=== PATIENT | female | born 1935 | race Caucasian/White ===

== ENCOUNTER → 2016-03-22 | Outpatient (CLI) | payer OTHER ==
[~2016-03-22] MED LIST: AMIO200T4 PO; CHOL100010 PO; DABI150C PO; MULTTAB58 PO; POTA20TA16 PO; SIMV-150 PO; SULF800T23 PO; TPRSR/50 PO
[2016-03-22 12:50] LABS: CALCIUM 9.4 mg/dl (8.5-10.1)
[2016-03-22 23:14] LABS: CALCIUM URINE 13.6 mg/dl
== END | disposition home or self-care (01) ==
LOC: C.LABBFT 08:38
PROVIDERS: ATTEND Internal Medicine Rheumatology
DX: M81.0 Age-related osteoporosis without current pathological fracture (principal); E55.9 Vitamin D deficiency, unspecified; E61.8 Deficiency of other specified nutrient elements

== ENCOUNTER → 2016-06-26 | Outpatient (CLI) | payer OTHER ==
[2016-06-26 12:33] LABS: CALCIUM 9.2 mg/dl (8.5-10.1)
[2016-06-26 12:38] LABS: BASO % 0.5 %; BASO ABS # 0.03 K/uL (0-0.2); COMPLETE YES; EOS % 1.6 %; HEMATOCRIT 34.6 % (37-47); IG% 0.2 %; LYMPH % 27.3 %; LYMPH ABS # 1.67 K/uL (1.2-3.4); MEAN CORPUSCULAR HEMOGLOBIN 26.3 pg (25-34); MEAN CORPUSCULAR HGB CONC 30.9 g/dl (32-36); MEAN PLATELET VOLUME 11.4 fL (7.4-10.4); MONO % 9.3 %; NEUT % 61.1 %; PLATELET COUNT 272 K/uL (130-400); RED BLOOD COUNT 4.07 M/uL (4.2-5.4); WHITE BLOOD COUNT 6.11 K/uL (4.8-10.8)
[2016-06-26 12:44] LABS: ALT/SGPT 29 U/L (12-78); BLOOD UREA NITROGEN 20 mg/dl (7-18); BUN/CREATININE RATIO 15.5 (10-20); CARBON DIOXIDE 27 mmol/L (21-32); CHLORIDE 105 mmol/L (98-107); CHOLESTEROL 188 mg/dl (0-200); GLUCOSE 90 mg/dl (70-99); POTASSIUM 4.1 mmol/L (3.5-5.1); SODIUM 142 mmol/L (136-145); TRIGLYCERIDES 67 mg/dl (0-150); VERY LOW DENSITY LIPOPROT CALC 13 mg/dl
[2016-06-26 12:55] LABS: AST/SGOT 28 U/L (15-37); CHOLESTEROL/HDL RATIO 1.8; FERRITIN 11.6 ng/ml (8.0-388.0); HDL CHOLESTEROL 106 mg/dl; LDL CHOLESTEROL CALCULATED 69 mg/dl; PHOSPHORUS 3.9 mg/dl (2.5-4.9); TOTAL IRON BINDING CAPACITY 385 mcg/dl (250-450)
--- NOTE | 2016-07-18 09:43 | CODING QUERY MEDICAL NECESSITY ---
CQSUPPORTING DIAGNOSIS NEEDED A supporting diagnosis is required for the test/procedure performed on this patient in order for us to be reimbursed by the patient's insurance. Please provide a supporting diagnosis for the following test/procedure listed below next to the test name along with your signature. *If there is no additional diagnosis for this patient that would support the following test/procedure please document that below next to the test/procedure. Test(s)/Procedure(s) that require a supporting diagnosis: DOS 06/26/16 VITAMIN D [id number] Provider Signature: Date: Thank you Carla Fishman Health Information Management Once completed, please kindly fax back to [phone] For questions please call [phone]
== END | disposition home or self-care (01) ==
LOC: C.LABBFT 07:48
PROVIDERS: ATTEND Internal Medicine
DX: I12.9 Hypertensive chronic kidney disease with stage 1 through stage 4 chronic kidney disease, or unspecified chronic kidney disease (principal); N18.3 Chronic kidney disease, stage 3 (moderate); I48.0 Paroxysmal atrial fibrillation; E55.9 Vitamin D deficiency, unspecified; E78.5 Hyperlipidemia, unspecified; D64.9 Anemia, unspecified

== ENCOUNTER → 2016-07-26 | Outpatient (CLI) | payer OTHER ==
[2016-07-26 17:33] LABS: BASO % 0.4 %; BASO ABS # 0.03 K/uL (0-0.2); COMPLETE YES; EOS % 1.3 %; HEMATOCRIT 35.1 % (37-47); IG% 0.3 %; LYMPH % 26.2 %; LYMPH ABS # 1.88 K/uL (1.2-3.4); MEAN CELL VOLUME 83.2 fL (80-100); MEAN CORPUSCULAR HEMOGLOBIN 25.4 pg (25-34); MEAN CORPUSCULAR HGB CONC 30.5 g/dl (32-36); MEAN PLATELET VOLUME 11.8 fL (7.4-10.4); MONO % 8.2 %; NEUT % 63.6 %; PLATELET COUNT 266 K/uL (130-400); RED BLOOD COUNT 4.22 M/uL (4.2-5.4); WHITE BLOOD COUNT 7.17 K/uL (4.8-10.8)
[2016-07-26 18:06] LABS: ALT/SGPT 32 U/L (12-78); AST/SGOT 32 U/L (15-37); BLOOD UREA NITROGEN 23 mg/dl (7-18); BUN/CREATININE RATIO 15.4 (10-20); CALCIUM 8.9 mg/dl (8.5-10.1); CARBON DIOXIDE 27 mmol/L (21-32); CHLORIDE 108 mmol/L (98-107); GLUCOSE 79 mg/dl (70-99); POTASSIUM 4.1 mmol/L (3.5-5.1); SODIUM 142 mmol/L (136-145)
[2016-07-26 18:08] LABS: ALB/GLOB RATIO 1.2 (0.9-2); ALKALINE PHOSPHATASE 74 U/L (45-117)
[2016-07-26 19:21] LABS: LYME DISEASE AB IGG NEG (NEG); LYME DISEASE AB IGM NEG (NEG)
[2016-08-01 00:35] LABS: AMIODARONE 1.2 mcg/mL (1.5-2.5); DESMETHYLAMIODARONE 1.1 mcg/mL (1.5-2.5)
== END | disposition home or self-care (01) ==
LOC: C.LABBFT 11:35
PROVIDERS: ATTEND Physician Assistant Medical
DX: R41.0 Disorientation, unspecified (principal)

== ENCOUNTER → 2016-07-27 | Outpatient (CLI) | payer OTHER ==
--- NOTE | 2016-07-27 15:13 | DIAGNOSTIC IMAGING REPORT ---
HEAD CT NONCONTRAST CT DOSE: 638.56 mGycm HISTORY: R41.3 Memory lossR41.0 [id number] Hallucinations TECHNIQUE: Multiaxial CT images of the head were performed without the use of intravenous contrast. Automated exposure control was utilized for this study. Comparison: Head CT 12/22/2013. Findings: The paranasal sinuses and mastoid air cells are clear. The calvarium and skull base are intact. There is no mass, hematoma, midline shift, acute infarct. White matter hypodensity is nonspecific but suggestive of microvascular ischemic change. The ventricles and sulci demonstrate mild age-related involutional changes. Impression: No acute intracranial abnormality. Atrophy and microvascular ischemic changes. Electronically signed by: Enrique Huang M.D. 07/27/2016 3:12 PM Dictated Date/Time: 07/27/2016 3:05 PM
== END | disposition home or self-care (01) ==
LOC: C.CTS 14:39
PROVIDERS: ATTEND Physician Assistant Medical
DX: R41.0 Disorientation, unspecified (principal); R44.3 Hallucinations, unspecified; R41.3 Other amnesia

== ENCOUNTER → 2016-08-07 | Outpatient (CLI) | payer OTHER ==
--- NOTE | 2016-08-07 10:22 | DIAGNOSTIC IMAGING REPORT ---
MRI OF THE BRAIN WITHOUT CONTRAST CLINICAL HISTORY: Memory loss. Confusion. History of breast cancer. COMPARISON STUDY: MRI of the brain September 01, [address] July 27, 2016. TECHNIQUE: Utilizing a 1.5 Norma magnet and dedicated coil, multiplanar, multiecho imaging of the brain was performed without IV contrast. FINDINGS: There are no areas of restricted diffusion. No acute intracranial hemorrhage, midline shift or mass effect is present. Moderate atrophy is noted with sulcal enlargement and ventricular dilatation. The basilar cisterns are patent. There are no extra-axial collections. No intracranial masses identified on this unenhanced exam. Scattered white matter T2 hyperintense foci suggest mild small vessel disease with minimal progression since exam of September 01, 2007. There are no calvarial lesions. Orbits and sinuses are unremarkable. IMPRESSION: 1. No acute intracranial findings. 2. Moderate atrophy and mild small vessel disease. Electronically signed by: Hans Mancini M.D. 08/07/2016 10:21 AM Dictated Date/Time: 08/07/2016 10:18 AM
== END | disposition home or self-care (01) ==
LOC: C.MRI 08:42
PROVIDERS: ATTEND Psychiatry & Neurology Neurology
DX: R41.0 Disorientation, unspecified (principal); R41.3 Other amnesia

== ENCOUNTER → 2016-08-22 | Outpatient (CLI) | payer OTHER | END | disposition home or self-care (01) | LOC: C.LAB1850 10:31 | PROVIDERS: ATTEND Internal Medicine Pulmonary Disease | DX: I48.0 Paroxysmal atrial fibrillation (principal) ==

== ENCOUNTER → 2016-10-16 | Outpatient (CLI) | payer OTHER ==
[2016-10-16 12:51] LABS: BASO % 0.3 %; BASO ABS # 0.02 K/uL (0-0.2); COMPLETE YES; HEMATOCRIT 43.3 % (37-47); IG% 0.3 %; LYMPH % 26.1 %; LYMPH ABS # 2.08 K/uL (1.2-3.4); MEAN CELL VOLUME 89.6 fL (80-100); MEAN CORPUSCULAR HEMOGLOBIN 28.4 pg (25-34); MEAN CORPUSCULAR HGB CONC 31.6 g/dl (32-36); MEAN PLATELET VOLUME 11.7 fL (7.4-10.4); MONO % 9.5 %; NEUT % 62.8 %; PLATELET COUNT 227 K/uL (130-400); RED BLOOD COUNT 4.83 M/uL (4.2-5.4); WHITE BLOOD COUNT 7.98 K/uL (4.8-10.8)
[2016-10-16 12:54] LABS: URINE APPEARANCE CLEAR (CLEAR); URINE BILIRUBIN NEG (NEG); URINE COLOR YELLOW; URINE EPITHELIAL CELL AUTO 20-30 /lpf (0-5); URINE NITRITE NEG (NEG); URINE SPECIFIC GRAVITY 1.022 (1.000-1.030); UROBILINOGEN NEG (NEG); ZZUR CULT IF INDIC CLEAN CATCH NO
[2016-10-16 13:04] LABS: MANUAL MICROSCOPIC REQUIRED? NO; REVIEW REQ? NO
[2016-10-16 13:19] LABS: URINE PROTIEN/CREAT RATIO 0.2 (0-0.2); URINE TOTAL PROTEIN 24.1 mg/dl (0-11.9)
[2016-10-16 13:27] LABS: BLOOD UREA NITROGEN 19 mg/dl (7-18); BUN/CREATININE RATIO 17.6 (10-20); CALCIUM 9.2 mg/dl (8.5-10.1); CARBON DIOXIDE 27 mmol/L (21-32); CHLORIDE 106 mmol/L (98-107); GLUCOSE 89 mg/dl (70-99); MAGNESIUM 2.2 mg/dl (1.8-2.4); POTASSIUM 3.9 mmol/L (3.5-5.1); SODIUM 140 mmol/L (136-145)
[2016-10-16 13:32] LABS: FERRITIN 59.4 ng/ml (8.0-388.0); PHOSPHORUS 3.7 mg/dl (2.5-4.9); TOTAL IRON BINDING CAPACITY 311 mcg/dl (250-450)
== END | disposition home or self-care (01) ==
LOC: C.LAB1850 11:33
PROVIDERS: ATTEND Internal Medicine Nephrology
DX: N18.3 Chronic kidney disease, stage 3 (moderate) (principal); D64.9 Anemia, unspecified

== ENCOUNTER → 2017-01-29 | Outpatient (CLI) | payer OTHER ==
[2017-01-29 14:40] LABS: BASO % 0.4 %; BASO ABS # 0.03 K/uL (0-0.2); COMPLETE YES; EOS % 0.5 %; HEMATOCRIT 38.2 % (37-47); IG% 0.3 %; LYMPH % 20.3 %; LYMPH ABS # 1.55 K/uL (1.2-3.4); MEAN CELL VOLUME 94.6 fL (80-100); MEAN CORPUSCULAR HEMOGLOBIN 30.2 pg (25-34); MEAN CORPUSCULAR HGB CONC 31.9 g/dl (32-36); MEAN PLATELET VOLUME 11.6 fL (7.4-10.4); MONO % 6.8 %; NEUT % 71.7 %; PLATELET COUNT 239 K/uL (130-400); RED BLOOD COUNT 4.04 M/uL (4.2-5.4); WHITE BLOOD COUNT 7.64 K/uL (4.8-10.8)
[2017-01-29 15:08] LABS: BLOOD UREA NITROGEN 23 mg/dl (7-18); BUN/CREATININE RATIO 16.6 (10-20); CALCIUM 8.9 mg/dl (8.5-10.1); CARBON DIOXIDE 26 mmol/L (21-32); CHLORIDE 107 mmol/L (98-107); GLUCOSE 164 mg/dl (70-99); MAGNESIUM 2.3 mg/dl (1.8-2.4); POTASSIUM 3.6 mmol/L (3.5-5.1); SODIUM 142 mmol/L (136-145)
[2017-01-29 15:09] LABS: PHOSPHORUS 3.9 mg/dl (2.5-4.9)
== END | disposition home or self-care (01) ==
LOC: C.LAB1850 13:00
PROVIDERS: ATTEND Internal Medicine Nephrology
DX: N18.3 Chronic kidney disease, stage 3 (moderate) (principal)

== ENCOUNTER → 2017-02-05 | Outpatient (CLI) | payer OTHER ==
[2017-02-05 17:58] LABS: THYROID STIMULATING HORMONE 1.13 uIu/ml (0.300-4.500)
== END | disposition home or self-care (01) ==
LOC: C.LABBFT 14:13
PROVIDERS: ATTEND Internal Medicine Cardiovascular Disease
DX: D64.9 Anemia, unspecified (principal); I10 Essential (primary) hypertension; I34.0 Nonrheumatic mitral (valve) insufficiency; I48.0 Paroxysmal atrial fibrillation

== ENCOUNTER → 2017-07-23 | Outpatient (CLI) | payer OTHER ==
[~2017-07-23] MED LIST changes: +POTA-639 PO; -POTA20TA16 PO
[2017-07-23 12:21] LABS: BASO % 0.4 %; BASO ABS # 0.03 K/uL (0-0.2); EOS % 1.2 %; EOS ABS # 0.08 K/uL (0-0.5); HEMATOCRIT 38.2 % (37-47); HEMOGLOBIN 12.7 g/dL (12.0-16.0); LYMPH % 30.7 %; LYMPH ABS # 2.13 K/uL (1.2-3.4); MEAN CELL VOLUME 90.7 fL (80-100); MEAN CORPUSCULAR HEMOGLOBIN 30.2 pg (25-34); MEAN CORPUSCULAR HGB CONC 33.2 g/dl (32-36); MEAN PLATELET VOLUME 11.2 fL (7.4-10.4); MONO % 10.5 %; MONO ABS # 0.73 K/uL (0.11-0.59); NEUT % 57.2 %; NEUT ABS # 3.96 K/uL (1.4-6.5); PLATELET COUNT 226 K/uL (130-400); RED CELL DISTRIBUTION WIDTH CV 14.8 % (11.5-14.5); RED CELL DISTRIBUTION WIDTH SD 49.2 fL (36.4-46.3); WHITE BLOOD COUNT 6.93 K/uL (4.8-10.8)
[2017-07-23 12:49] LABS: ALBUMIN 3.4 gm/dl (3.4-5.0); ALT/SGPT 23 U/L (12-78); AST/SGOT 25 U/L (15-37); BLOOD UREA NITROGEN 23 mg/dl (7-18); CALCIUM 8.4 mg/dl (8.5-10.1); CARBON DIOXIDE 27 mmol/L (21-32); CHOLESTEROL 187 mg/dl (0-200); CREATININE 1.18 mg/dl (0.60-1.20); GLUCOSE 81 mg/dl (70-99); LDL CHOLESTEROL CALCULATED 75 mg/dl; PHOSPHORUS 3.7 mg/dl (2.5-4.9); POTASSIUM 4.3 mmol/L (3.5-5.1); SODIUM 140 mmol/L (136-145)
== END | disposition home or self-care (01) ==
LOC: C.LABBFT 10:51
PROVIDERS: ATTEND Physician Assistant Medical
DX: I34.0 Nonrheumatic mitral (valve) insufficiency (principal); I48.0 Paroxysmal atrial fibrillation; N18.3 Chronic kidney disease, stage 3 (moderate); E78.5 Hyperlipidemia, unspecified

== ENCOUNTER 2018-04-09 01:01 | Observation (INO) ==
[2018-04-09 01:36] LABS: Appearance Urine Clear (Clear); Bilirubin Urine Negative (Negative); Color Urine Yellow; Glucose Urine UA Negative (Negative); Ketones Urine Negative (Negative); Leukocyte Esterase Urine Negative (Negative); Nitrite Urine Negative (Negative); Protein Urine Negative (Negative); Specific Gravity Urine 1.006 (1.000-1.030); Urobilinogen Urine Negative (Negative); pH Urine 7.5 (4.5-7.5)
[2018-04-09 02:12] LABS: Basophils # (auto) 0.02 K/uL (0-0.2); Basophils % (auto) 0.2 %; Eosinophils # (auto) 0.18 K/uL (0-0.5); Eosinophils % (auto) 2.2 %; Hematocrit (blood only) 39.1 % (37-47); Hemoglobin 12.9 g/dL (12.0-16.0); Immature Granulocytes # (auto) 0.01 K/uL (0.00-0.02); Immature Granulocytes % (auto) 0.1 %; Lymphocytes # (auto) 2.01 K/uL (1.2-3.4); Lymphocytes % (auto) 24.5 %; Mean Corpuscular Volume 92.9 fL (80-100); Mean Platelet Volume 10.9 fL (7.4-10.4); Monocytes # (auto) 0.78 K/uL (0.11-0.59); Monocytes % (auto) 9.5 %; Neutrophils # (auto) 5.19 K/uL (1.4-6.5); Neutrophils % (auto) 63.5 %; Platelet Count 211 K/uL (130-400); RDW Coefficient of Variation 14.6 % (11.5-14.5); RDW Standard Deviation 49.9 fL (36.4-46.3); Red Blood Count 4.21 M/uL (4.2-5.4); White Blood Count 8.19 K/uL (4.8-10.8)
[2018-04-09 02:30] LABS: INR 1.4 (0.9-1.1); Partial Thromboplastin Ratio 1.8; Prothrombin Time 14.1 Seconds (9.0-12.0)
[2018-04-09 02:32] LABS: Partial Thromboplastin Time 45.5 Seconds (21.0-31.0)
[2018-04-09 02:41] LABS: Alanine Aminotransferase 35 U/L (12-78); Albumin Level 3.8 gm/dl (3.4-5.0); Aspartate Aminotransferase 30 U/L (15-37); BUN Creatinine Ratio 15.4 (10-20); Bilirubin Direct 0.2 mg/dl (0-0.2); Blood Urea Nitrogen 20 mg/dl (7-18); Calcium 8.6 mg/dl (8.5-10.1); Carbon Dioxide 27 mmol/L (21-32); Chloride 110 mmol/L (98-107); Est GFR (African American) 43.9; Est GFR (Non-African American) 37.9; Glucose 87 mg/dl (70-99); Potassium 3.7 mmol/L (3.5-5.1); Sodium 143 mmol/L (136-145)
[2018-04-09 02:44] LABS: Alkaline Phosphatase 60 U/L (45-117); Bilirubin,Total 0.5 mg/dl (0.2-1); Creatine Kinase 106 U/L (26-192); Total Protein 7.2 gm/dl (6.4-8.2); Troponin I < 0.015 ng/ml (0-0.045)
--- NOTE | 2018-04-09 04:00 | History & Physical Report ---
Date of Service April 09, 2018 Assessment & Plan (1) Generalized weakness: Generalized weakness/ataxia/imbalance/recent fall/medication side effect of Aricept-- Upon discussion with patient and daughter, her symptoms have begun since she has been getting a reminder call from her daughter's to remember to take all of her medications. The main medication that she takes late in the evening is Aricept, and she reports that within 1-3 hours of taking that over the past week, the above symptoms develop. Her daughter reports that the patient has only been taking the Aricept sporadically prior to that. I recommended that we stop the Aricept, which the patient and daughter feel has not had a significant improvement anyway, and monitor for resolution of the symptoms. Consult PT and OT, to see if patient would benefit from outpatient versus inpatient therapy. Present on Admission?: Yes (2) Medication side effect: See above Present on Admission?: Yes (3) Ataxia: See above Present on Admission?: Yes (4) Atrial fibrillation: Atrial fibrillation/hypertension-- Continue amiodarone, and Pradaxa. Present on Admission?: Yes (5) Hypertension: See above Present on Admission?: Yes (6) Hyperlipidemia: Continue simvastatin 10 mg daily. Present on Admission?: Yes (7) Fracture of nasal bone: Occurred during her first fall. Present on Admission?: Yes History of Present Illness Chief Complaint: The patient presents to the emergency department with complaint of recurrent fatigue and imbalance that occurs primarily at nighttime near bedtime. Primary Care Provider: Narayan Francis MD The patient is an 82-year-old female who was initially seen on April 03, 2018 in the ED for generalized weakness and difficulty with balance causing a fall episode where she sustained a nasal fracture. She then was seen at the emergency department on April 07 for similar symptoms, but did not sustain any injuries. Patient presents for the third time to the emergency department tonight with her daughter, with complaint of severe generalized weakness, with feeling like she could not move, imbalance, and disorientation. With discussion with the patient and her daughter in the ED tonight, it appears that she has been being reminded by a phone call to take her Aricept at nighttime, which she now takes on a regular basis, and likely is having side effects as noted above. Allergies Allergy/AdvReac Type Severity Reaction Status Date / Time Penicillins Allergy Unknown Rash Verified 04/09/18 01:16 risedronate sodium AdvReac Mild Nausea Unverified 04/09/18 01:16 Home Medications Home Medications Medication Instructions Recorded Confirmed Type amiodarone 200 mg PO PM 04/03/18 04/09/18 History calcitriol 0.25 mg PO PM 04/03/18 04/09/18 History calcium carbonate [Calci-Chew] 500 mg PO QAM 04/03/18 04/09/18 History cholecalciferol (vitamin D3) 1,000 unit PO PM 04/03/18 04/09/18 History [Vitamin D3] dabigatran etexilate [Pradaxa] 150 mg PO BID 04/03/18 04/09/18 History donepezil 10 mg PO PM 04/03/18 04/09/18 History ferrous sulfate [iron] 325 mg PO QAM 04/03/18 04/09/18 History simvastatin 10 mg PO PM 04/03/18 04/09/18 History sulfamethoxazole-trimethoprim 1 tab PO QAM 04/03/18 04/09/18 History thiamine HCl (vitamin B1) [Vitamin 0 mg PO QAM 04/03/18 04/09/18 History B-1] vit C-vit Z-chkefo-hxmf-lutein 1 tab PO QAM 04/03/18 04/09/18 History [PreserVision Lutein] Past Med/Surg History Social History Feels Safe at Home: Yes Smoking Status: Never smoker Preferred Language: Samoan Review of Systems The patient denies chest pain, palpitations, shortness of breath, dyspnea on exertion, cough, lower extremity swelling, sore throat, fevers, chills, sweats, weight change, nausea, vomiting, diarrhea , constipation, abdominal pain, pelvic pain, blood in urine or stool, dysuria, urinary frequency or urgency, headache, memory loss, loss of consciousness, rash, abnormal bruising or bleeding, focal weakness, numbness or tingling in arms or legs, generalized arthralgias or myalgias, back or neck pain, or night sweats. The review of systems is otherwise negative other than for that already noted above, and at least 10 systems have been reviewed. Physical Exam 2 Vital Signs (Past 24 Hours): Last Vital Signs Temp 36.4 C L 02/06/19 01:06 Pulse 56 L 04/09/18 03:00 Resp 18 04/09/18 03:00 BP 162/67 H 04/09/18 03:00 Pulse Ox 92 04/09/18 03:00 Physical Exam: The patient is awake, alert and oriented 3, well developed and well nourished, light bruises over her forehead, lying in bed and in no acute distress. HEENT--PERRL, EOMI, mucous membranes and oropharynx normal. Neck--supple. No JVD. No bruits. Thyroid normal, trachea midline, no adenopathy. Heart--normal S1 and S2. No murmurs, rubs or gallops. Lungs--clear bilaterally, no respiratory distress, no accessory muscle use. Abdomen--normal bowel sounds and soft. Nontender. Nondistended. Extremities--no cyanosis or clubbing. No edema. There are good distal pulses b/ l. Dermatologic--normal skin turgor, normal color, no abnormal lymph nodes, no rash. Neurologic--cranial nerves II through XII grossly intact. Rheumatologic--normal range of motion. Psychiatric--normal affect. Results & Data Laboratory Results Laboratory Results WBC 8.19 K/uL (4.8-10.8) 04/09/18 01:48 RBC 4.21 M/uL (4.2-5.4) 04/09/18 01:48 Hgb 12.9 g/dL (12.0-16.0) 04/09/18 01:48 Hct 39.1 % (37-47) 04/09/18 01:48 MCV 92.9 fL (80-100) 04/09/18 01:48 MCH 30.6 pg (25-34) 04/09/18 01:48 MCHC 33.0 g/dL (32-36) 04/09/18 01:48 RDW Std Deviation 49.9 fL (36.4-46.3) H 04/09/18 01:48 RDW Coeff of Griselda 14.6 % (11.5-14.5) H 04/09/18 01:48 Plt Count 211 K/uL (130-400) 04/09/18 01:48 MPV 10.9 fL (7.4-10.4) H 04/09/18 01:48 Immature Gran % (Auto) 0.1 % 04/09/18 01:48 Neut % (Auto) 63.5 % 04/09/18 01:48 Lymph % (Auto) 24.5 % 04/09/18 01:48 [place] % (Auto) 9.5 % 04/09/18 01:48 Eos % (Auto) 2.2 % 04/09/18 01:48 Baso % (Auto) 0.2 % 04/09/18 01:48 Immature Gran # (Auto) 0.01 K/uL (0.00-0.02) 04/09/18 01:48 Neut # (Auto) 5.19 K/uL (1.4-6.5) 04/09/18 01:48 Lymph # (Auto) 2.01 K/uL (1.2-3.4) 04/09/18 01:48 [place] # (Auto) 0.78 K/uL (0.11-0.59) H 04/09/18 01:48 Eos # (Auto) 0.18 K/uL (0-0.5) 04/09/18 01:48 Baso # (Auto) 0.02 K/uL (0-0.2) 04/09/18 01:48 PT 14.1 Seconds (9.0-12.0) H 04/09/18 01:48 INR 1.4 (0.9-1.1) H 04/09/18 01:48 APTT 45.5 Seconds (21.0-31.0) H* 04/09/18 01:48 PTT Ratio 1.8 04/09/18 01:48 Sodium 143 mmol/L (136-145) 04/09/18 01:48 Potassium 3.7 mmol/L (3.5-5.1) 04/09/18 01:48 Chloride 110 mmol/L (98-107) H 04/09/18 01:48 Carbon Dioxide 27 mmol/L (21-32) 04/09/18 01:48 Anion Gap 6.0 (3-11) 04/09/18 01:48 BUN 20 mg/dl (7-18) H 04/09/18 01:48 Creatinine 1.30 mg/dl (0.6-1.2) H 04/09/18 01:48 Est Cr Clr Drug Dosing Not Reportable 04/09/18 01:48 Est GFR ( Amer) 43.9 04/09/18 01:48 Est GFR (Non-Af Amer) 37.9 04/09/18 01:48 BUN/Creatinine Ratio 15.4 (10-20) 04/09/18 01:48 Glucose 87 mg/dl (70-99) 04/09/18 01:48 Calcium 8.6 mg/dl (8.5-10.1) 04/09/18 01:48 Magnesium 2.0 mg/dl (1.8-2.4) 04/09/18 01:48 Total Bilirubin 0.5 mg/dl (0.2-1) 04/09/18 01:48 Direct Bilirubin 0.2 mg/dl (0-0.2) 04/09/18 01:48 AST 30 U/L (15-37) 04/09/18 01:48 ALT 35 U/L (12-78) 04/09/18 01:48 Alkaline Phosphatase 60 U/L (45-117) 04/09/18 01:48 Total Creatine Kinase 106 U/L (26-192) 04/09/18 01:48 Troponin I < 0.015 ng/ml (0-0.045) 04/09/18 01:48 Total Protein 7.2 gm/dl (6.4-8.2) 04/09/18 01:48 Albumin 3.8 gm/dl (3.4-5.0) 04/09/18 01:48 Lipase 150 U/L (73-393) 04/09/18 01:48 Urine Color Yellow 04/09/18 01:20 Urine Appearance Clear (Clear) 04/09/18 01:20 Urine pH 7.5 (4.5-7.5) 04/09/18 01:20 Ur Specific [place] 1.006 (1.000-1.030) 04/09/18 01:20 Urine Protein Negative (Negative) 04/09/18 01:20 Urine Glucose (UA) Negative (Negative) 04/09/18 01:20 Urine Ketones Negative (Negative) 04/09/18 01:20 Urine Blood Negative (Negative) 04/09/18 01:20 Urine Nitrite Negative (Negative) 04/09/18 01:20 Urine Bilirubin Negative (Negative) 04/09/18 01:20 Urine Urobilinogen Negative (Negative) 04/09/18 01:20 Ur Leukocyte Esterase Negative (Negative) 04/09/18 01:20 Code Status & VTE Plan Code Status Full code VTE Prophylaxis Plan VTE Prophylaxis will be ordered: Yes _ (1) Fracture of nasal bone Encounter type: initial encounter Fracture healing: Fracture type: closed Qualified Code(s): S02.2XXA - Fracture of nasal bones, initial encounter for closed fracture
[2018-04-09] MEDS ORDERED: ALUMINUM/MAGNESIUM SUSP 30 ML UDC PO PRN (05:52)
[2018-04-09] MEDS ORDERED: MAGNESIUM HYDROXIDE SUSP 30 ML UDC PO PRN (05:52)
[2018-04-09] MEDS ORDERED: ACETAMINOPHEN 325 MG TAB PO PRN (05:52)
[2018-04-09] MEDS ORDERED: PATIENT'S HEIGHT AND/OR WEIGHT NEEDED SCH (06:15)
--- NOTE | 2018-04-09 06:28 | XRay Report ---
XR chest 1V portable HISTORY: 82 years-old Female worsening weakness acute weakness COMPARISON: Chest radiograph 08/02/2015 TECHNIQUE: Portable AP view of the chest FINDINGS: Cardiac silhouette is enlarged, unchanged. Calcification of the thoracic aortic arch. Chronic interst itial coarsening with hyperinflation. No pneumothorax, pleural effusion or overt pulmonary edema. Dem ineralized appearance of the bones with degenerative changes of the shoulders and spine. Surgical cli ps project about the left axilla. IMPRESSION: Cardiomegaly without acute process. The above report was generated using voice recognition software. It may contain grammatical, syntax o r spelling errors. Electronically signed by: Chandrakant Carbajal M.D. 04/09/2018 6:26 AM
--- NOTE | 2018-04-09 06:46 | CT Scan Report ---
CT OF THE HEAD WITHOUT CONTRAST CLINICAL HISTORY: worsening weakness, on Pradaxa, recent head injury COMPARISON STUDY: MRI of the brain August 07, [address] April 03, 2018. CT DOSE: 537.48 mGy.cm TECHNIQUE: Helical axial images of the head were obtained without IV contrast. Automated exposure con trol was utilized for the study. A dose lowering technique was utilized adhering to the principles o f ALARA. FINDINGS: No acute intracranial hemorrhage, midline shift or mass effect is present. Ventricular syst em is stable. Basilar cisterns are patent. There are no extra-axial collections. There are no finding s to suggest acute dural sinus thrombosis or acute territorial infarct. The appearance of the brain i s unchanged. There is no calvarial fracture. IMPRESSION: No acute intracranial findings. Electronically signed by: Hans Mancini M.D. 04/09/2018 6:44 AM
--- NOTE | 2018-04-09 08:15 | Hospitalist Progress Note ---
Date of Service April 09, 2018 Assessment & Plan (1) Generalized weakness: Generalized weakness/ataxia/imbalance/recent fall/medication side effect of Aricept-- she reports that within 1-3 hours of taking that over the past week, she felt she had noticible mental status and gait performance delcine Stopping Aricept, family is concerned of possible issue prior to aricept, will proceed to mri of brain to eval of metastatic disease with history of breast cancer and or cva( with history of afib) Consult PT and OT (2) Medication side effect: See above (3) Ataxia: See above (4) Atrial fibrillation: Atrial fibrillation/hypertension-- Continue amiodarone, and Pradaxa. (5) Hypertension: See above (6) Hyperlipidemia: Continue simvastatin 10 mg daily. (7) Fracture of nasal bone: Occurred during her first fall. Subjective Patient is pleasant today she is mildly forgetful she can recall falling and fracturing her nose she has no focal complaints or problems during my visit Review of Systems ROS: well nourished well developed. No double vision blurry vision No problems with speech or swallowing No palpitations, chest pain or pressure No Wheezing or breathing issues No abdominal pain nausea vomiting diarrhea changes in appetite or weight No burning urine urine frequency or changes in color No focal joint pain or muscle pain No skin rashes or oral lesions No unusual bruising or bleeding No focused back pain or numbness or loss of strength Patient progressive changes in memory but no confusion today Physical Exam 2 Vital Signs (Past 24 Hours): Last Vital Signs Temp 36.7 C 04/09/18 08:00 Pulse 62 04/09/18 08:00 Resp 18 04/09/18 08:00 BP 162/66 H 04/09/18 08:00 Pulse Ox 97 04/09/18 08:00 Constitutional: well developed and average body habitus Eyes: no conjunctival abnormality and no scleral abnormality Neck: normal visual inspection and trachea midline Respiratory: normal respiratory effort; no respiratory distress Auscultation: lungs clear to auscultation bilaterally Cardiovascular: RRR, no murmur, no edema Gastrointestinal (Abdomen): normal bowel sounds, soft, nontender, no hepatosplenomegaly Musculoskeletal: no cyanosis or clubbing, extremities motor strength 5/5 _ (1) Fracture of nasal bone Encounter type: initial encounter Fracture healing: Fracture type: closed Qualified Code(s): S02.2XXA - Fracture of nasal bones, initial encounter for closed fracture
--- NOTE | 2018-04-09 08:23 | Emergency Department Note ---
Entered by Luciana Mcpherson acting as a scribe for Danial Amaya MD ED Provider Note Name: Maru Jeter Age: 82 Arrives Via: Family Vehicle Informant: Self CC: Worsening weakness HPI: A female arrives for evaluation after complaining of worsening weakness that began early this morning. The patient states that she was in the ER for a fall about a week ago due to weakness, and the symptoms have been present since she was discharged. The patient complains of shakiness in her upper extremities , difficulty moving her upper extremities, feeling "unsteady," intermittent burping, and notes that she "can't hold her head up." She denies any dysuria, abdominal pain, neck pain, headache, SOB, chest pain, and hip pain. The patient' s daughter, at bedside, states that the patient was on Bactrim about 2 weeks ago for a suspected UTI. She notes that she's on Pradaxa for a history of A fib. She denies any history of strokes and myocardial infarctions. ROS: See above HPI for pertinent positives & negatives. A total of 10 systems reviewed and were otherwise negative. Past Medical History: Atrial fibrillation, hypertension Past Surgical History: Tubal ligation Family History: Family history is noncontributory. Social History: Never smoker Home Medications: Pradaxa Allergies: Penicillins, risedronate sodium Physical: Vitals: BP: 190/70, P: 56, R: 16, T: 97.5, O2: Sat, D: Room Air Exam: GENERAL: Patient is elderly and tired appearing and in minimal distress. She has weakness with sitting up. EYES: No scleral icterus, unremarkable pupils. ENT: Mucous membranes moist, no nasal congestion. Resolving bruising in the bilateral face. NECK: No masses appreciated, no meningismus, trachea is midline. RESPIRATORY: No dyspnea. Clear to auscultation and equal bilaterally. No wheeze , no rhonchi. CARDIOVASCULAR: Regular rate and rhythm. No murmurs, rubs, gallops appreciated. GASTROINTESTINAL: Abdomen soft, non-tender, no peritonitis. Bowel sounds positive. No masses appreciated. BACK: No midline tenderness, no CVA tenderness EXTREMITIES: Normal motion all extremities, no cyanosis, no edema. NEUROLOGIC: Alert and oriented, no acute motor or sensory deficits, no focal weakness, cranial nerves grossly intact. SKIN: No rash, no jaundice, no diaphoresis. ED Course: Prior Medical Record, Triage/Nursing Notes, Medications, Allergies reviewed by Me Vital Signs: reviewed and remarkable for hypertension and bradycardia. Labs: Reviewed and unremarkable as below Interventions: [place] Imaging: X ray results are stated below per my interpretation: Chest: 1 view: No infiltrate, no effusion, normal cardiac border. CT head negative per statrad EKG: See below. Consults: 0255: I spoke with Dr. Perdue, [facility] hospitalist, about the patient's case. He will further evaluate her. Times: 0113: Past medical records reviewed. The patient was evaluated in room B06, and a complete history and physical examination were performed. 0252: I checked on the patient. She was stable and agreeable to hospitalist evaluation. 0254: Dr. Perdue was paged. 0255: I spoke with Dr. Perdue, [facility] hospitalist, about the patient's case. He will further evaluate her. Blood pressure: HTN - Hospitalist referral. Disposition: Hospitalization Differentials: Differential includes acute coronary syndrome, myocardial infarction, CVA, TIA, anemia, infection, pneumonia, UTI, pyelonephritis, poor nutrition, dehydration, electrolyte disturbance,hypoglycemia amongst other pathologies. Medical Decision Makin yr old female with multiple falls, episodes of weakness and then episode of severe arm weakness this evening now resolved. No neuro deficits and clearly ongoing for last week or so. Repeat CT head as on pradaxa with recent fall which is negative. CXR unremarkable. EKG OK. Labs unremarkable. This is now 3rd time in a weak she has been here. She already had fall resulting in nasal fracture. I am concerned that discharging to home may result in worsening issue/ fractures. Hospitalist will bring in for further monitoring and work-up. She is stable, non-septic, without other acute findings throughout stay. Impression: Generalized Weakness Fall Danial Amaya MD The scribe's documentation has been prepared under my direction and personally reviewed by me in its entirety. I confirm that the note above accurately reflects all work, treatment, procedures, and medical decision making performed by me. Impression & Plan Generalized weakness, Fall Past Med/Surg History Medical History Atrial fibrillation (Chronic) Hypertension (Chronic) Vertigo (Resolved) Open fracture of radius (Resolved) Breast cancer, left Heart valve problem Kidney disease sees Dr. Cruz for kidneys per daughter Vascular dementia Surgical History Tubal ligation status (Chronic) History of left mastectomy Social History Current Living Situation: Alone Other Information That Helps Us Care for You: No Feels Safe at Home: Yes Safety Concerns: Feels Safe At This Time Smoking Status: Never smoker Hx Alcohol Use: No Hx Substance Use: No Beliefs That Will Affect Care: None Preferred Language: Greek Communication Ability: Effective Sash Assembler Required: No Results & Data Vital Signs Vital Signs - 24 hr 04/09/18 01:06 04/09/18 01:50 04/09/18 03:00 Temperature 36.4 C L Temperature Source Oral Sepsis Recent Fever Within 48 Hours No Sepsis Action Taken by Nursing No Action Required Pulse Rate 56 L Pulse Rate [Apical] 62 56 L Pulse Rate [Finger] Pulse Rhythm [Finger] Pulse Strength [Finger] Respiratory Rate 16 18 18 Respiratory Effort / Characteristics Non-Labored Non-Labored Spontaneous Non-Labored Spontaneous Respiratory Depth Normal Normal Normal Respiratory Pattern Regular Regular Blood Pressure 190/70 H Blood Pressure [Right Arm] 170/66 H 162/67 H Blood Pressure Mean 110 Blood Pressure Mean [Right Arm] 100 98 Blood Pressure Position [Right Arm] Lying Lying Pulse Oximetry 99 93 92 Oxygen Delivery Method Room Air Room Air Room Air 04/09/18 04:00 04/09/18 05:18 04/09/18 05:35 Temperature 36.4 C L Temperature Source Oral Sepsis Recent Fever Within 48 Hours Sepsis Action Taken by Nursing Pulse Rate 56 L Pulse Rate [Apical] 67 Pulse Rate [Finger] 62 Pulse Rhythm [Finger] Regular Pulse Strength [Finger] Normal Respiratory Rate 18 18 18 Respiratory Effort / Characteristics Non-Labored Spontaneous Non-Labored Spontaneous Respiratory Depth Normal Normal Respiratory Pattern Regular Blood Pressure 176/62 H Blood Pressure [Right Arm] 173/81 H 157/69 H Blood Pressure Mean Blood Pressure Mean [Right Arm] 111 98 Blood Pressure Position [Right Arm] Lying Lying Pulse Oximetry 97 98 96 Oxygen Delivery Method Room Air Room Air Room Air 04/09/18 08:00 Temperature 36.7 C Temperature Source Oral Sepsis Recent Fever Within 48 Hours Sepsis Action Taken by Nursing Pulse Rate Pulse Rate [Apical] Pulse Rate [Finger] 62 Pulse Rhythm [Finger] Regular Pulse Strength [Finger] Normal Respiratory Rate 18 Respiratory Effort / Characteristics Non-Labored Respiratory Depth Normal Respiratory Pattern Regular Blood Pressure Blood Pressure [Right Arm] 162/66 H Blood Pressure Mean Blood Pressure Mean [Right Arm] 98 Blood Pressure Position [Right Arm] Pulse Oximetry 97 Oxygen Delivery Method Room Air Home Medications Current Medication List: was personally reviewed by me Laboratory Data Attestation: I reviewed the patient's lab results. Result diagrams: 04/09/18 01:48 04/09/18 01:48 Lab Results 04/09/18 04/09/18 04/09/18 Range/Units 01:20 01:48 01:48 WBC 8.19 (4.8-10.8) K/uL RBC 4.21 (4.2-5.4) M/uL Hgb 12.9 (12.0-16.0) g/dL Hct 39.1 (37-47) % MCV 92.9 (80-100) fL MCH 30.6 (25-34) pg MCHC 33.0 (32-36) g/dL RDW Std Deviation 49.9 H (36.4-46.3) fL RDW Coeff of Griselda 14.6 H (11.5-14.5) % Plt Count 211 (130-400) K/uL MPV 10.9 H (7.4-10.4) fL Immature Gran % (Auto) 0.1 % Neut % (Auto) 63.5 % Lymph % (Auto) 24.5 % Patrick % (Auto) 9.5 % Eos % (Auto) 2.2 % Baso % (Auto) 0.2 % Immature Gran # (Auto) 0.01 (0.00-0.02) K/uL Neut # (Auto) 5.19 (1.4-6.5) K/uL Lymph # (Auto) 2.01 (1.2-3.4) K/uL Patrick # (Auto) 0.78 H (0.11-0.59) K/uL Eos # (Auto) 0.18 (0-0.5) K/uL Baso # (Auto) 0.02 (0-0.2) K/uL PT 14.1 H (9.0-12.0) Seconds INR 1.4 H (0.9-1.1) APTT 45.5 H* (21.0-31.0) Seconds PTT Ratio 1.8 Sodium (136-145) mmol/L Potassium (3.5-5.1) mmol/L Chloride (98-107) mmol/L Carbon Dioxide (21-32) mmol/L Anion Gap (3-11) BUN (7-18) mg/dl Creatinine (0.6-1.2) mg/dl Est Cr Clr Drug Dosing Est GFR ( Amer) Est GFR (Non-Af Amer) BUN/Creatinine Ratio (10-20) Glucose (70-99) mg/dl Calcium (8.5-10.1) mg/dl Magnesium (1.8-2.4) mg/dl Total Bilirubin (0.2-1) mg/dl Direct Bilirubin (0-0.2) mg/dl AST (15-37) U/L ALT (12-78) U/L Alkaline Phosphatase (45-117) U/L Total Creatine Kinase (26-192) U/L Troponin I (0-0.045) ng/ml Total Protein (6.4-8.2) gm/dl Albumin (3.4-5.0) gm/dl Lipase (73-393) U/L Urine Color Yellow Urine Appearance Clear (Clear) Urine pH 7.5 (4.5-7.5) Ur Specific [place] 1.006 (1.000-1.030) Urine Protein Negative (Negative) Urine Glucose (UA) Negative (Negative) Urine Ketones Negative (Negative) Urine Blood Negative (Negative) Urine Nitrite Negative (Negative) Urine Bilirubin Negative (Negative) Urine Urobilinogen Negative (Negative) Ur Leukocyte Esterase Negative (Negative) 04/09/18 Range/Units 01:48 WBC (4.8-10.8) K/uL RBC (4.2-5.4) M/uL Hgb (12.0-16.0) g/dL Hct (37-47) % MCV (80-100) fL MCH (25-34) pg MCHC (32-36) g/dL RDW Std Deviation (36.4-46.3) fL RDW Coeff of Griselda (11.5-14.5) % Plt Count (130-400) K/uL MPV (7.4-10.4) fL Immature Gran % (Auto) % Neut % (Auto) % Lymph % (Auto) % Patrick % (Auto) % Eos % (Auto) % Baso % (Auto) % Immature Gran # (Auto) (0.00-0.02) K/uL Neut # (Auto) (1.4-6.5) K/uL Lymph # (Auto) (1.2-3.4) K/uL Patrick # (Auto) (0.11-0.59) K/uL Eos # (Auto) (0-0.5) K/uL Baso # (Auto) (0-0.2) K/uL PT (9.0-12.0) Seconds INR (0.9-1.1) APTT (21.0-31.0) Seconds PTT Ratio Sodium 143 (136-145) mmol/L Potassium 3.7 (3.5-5.1) mmol/L Chloride 110 H (98-107) mmol/L Carbon Dioxide 27 (21-32) mmol/L Anion Gap 6.0 (3-11) BUN 20 H (7-18) mg/dl Creatinine 1.30 H (0.6-1.2) mg/dl Est Cr Clr Drug Dosing Not Reportable Est GFR ( Amer) 43.9 Est GFR (Non-Af Amer) 37.9 BUN/Creatinine Ratio 15.4 (10-20) Glucose 87 (70-99) mg/dl Calcium 8.6 (8.5-10.1) mg/dl Magnesium 2.0 (1.8-2.4) mg/dl Total Bilirubin 0.5 (0.2-1) mg/dl Direct Bilirubin 0.2 (0-0.2) mg/dl AST 30 (15-37) U/L ALT 35 (12-78) U/L Alkaline Phosphatase 60 (45-117) U/L Total Creatine Kinase 106 (26-192) U/L Troponin I < 0.015 (0-0.045) ng/ml Total Protein 7.2 (6.4-8.2) gm/dl Albumin 3.8 (3.4-5.0) gm/dl Lipase 150 (73-393) U/L Urine Color Urine Appearance (Clear) Urine pH (4.5-7.5) Ur Specific [place] (1.000-1.030) Urine Protein (Negative) Urine Glucose (UA) (Negative) Urine Ketones (Negative) Urine Blood (Negative) Urine Nitrite (Negative) Urine Bilirubin (Negative) Urine Urobilinogen (Negative) Ur Leukocyte Esterase (Negative) Administered Medications Discontinued Medications Miscellaneous (Patient's Height And/Or Weight Needed) 1 ea N/A Q2H ANNE Stop: 05/09/18 06:14 Last Admin: 04/09/18 06:17 Dose: Not Given Imaging Data Radiologist's Impression: Radiology results as stated below per my review and the radiologist's interpretation: CT HEAD: Comparison is made to prior CT head on 04/03/2018. No acute intracranial abnormality identified. Stable chronic small vessel ischemic disease and cerebral volume loss. Bilateral lens implants. Small amount of fluid in the right mastoid air cells. Mild mucosal thickening in the ethmoid air cells. Mild atherosclerotic calcifications of the intracranial vasculature. Radiologist: River Narayanan MD Study ready at 02:23 and initial results transmitted on 02:40. ECG Data Attestation: I personally reviewed and interpreted this ECG as follows: Indication: weakness Rate (beats per minute): 60 Rhythm: normal sinus Findings: + other (no ischemia, prolonged QTC); no ectopy Blood Pressure Blood Pressure Findings: Elevated blood pressure Blood Pressure Disposition: further management by hospitalist Discharge Plan Visit Data *Final* Discharge Date/Time: 04/09/18 05:18 Chief Complaint: Dizziness Stated Complaint: CAN'T MOVE-DIZZY,WEAK,CAN'T HOLD UP HEAD ED Provider: Danial Amaya Discharge Problem: Generalized weakness, Fall Patient Disposition: Admitted As Inpatient Discharge Instructions Interventions: ED Discharge Assessment Last Done: 04/09/18 05:18 The scribe's documentation has been prepared under my direction and personally reviewed by me in its entirety. I confirm that the note above accurately reflects all work, treatment, procedures, and medical decision making performed by me.
[2018-04-09] MEDS: CALCIUM CARBONATE 500 MG CHEWABLE TAB PO SCH (08:30)
[2018-04-09] MEDS: DABIGATRAN ETEXILATE 75 MG CAP PO SCH ×2 (08:31→19:48)
[2018-04-09] MEDS: CEROVITE ADV FORMULA TAB PO SCH (08:31)
[2018-04-09] MEDS: THIAMINE HCL 50 MG TABLET PO SCH (08:32)
[2018-04-09] MEDS: FERROUS SULFATE 325 MG TAB PO SCH (08:32)
[2018-04-09] MEDS ORDERED: HEPARIN SOD 5,000 UNIT/0.5 ML VIAL SQ SCH (09:00)
--- NOTE | 2018-04-09 17:55 | Magnetic Resonance Report ---
MR brain wo con CLINICAL HISTORY: 82 years-old Female presenting with history of breast cancer, concern for metastati c disease versus stroke, history of fall 3 weeks ago with facial injury, weakness and unsteadiness si nce that time. TECHNIQUE: Multisequence, multiplanar MR imaging of the brain was performed without the use of intrav enous contrast. IV contrast: None. COMPARISON: 08/07/[address] head performed earlier today. FINDINGS: Localizer images: Unremarkable. Proportional ventricular and sulcal prominence, likely age-related parenchymal volume loss. Periventr icular and subcortical white matter T2/FLAIR hyperintensity, nonspecific but likely indicative of chr onic small vessel ischemic change. Postcontrast imaging was not performed. No mass effect or midline shift. No restricted diffusion to suggest acute ischemia. No hemorrhage. No extra-axial fluid collection. T2 skull base flow voids preserved. Bone marrow signal intensity within the calvarium within normal l imits. Bilateral [place] lenses are absent. IMPRESSION: 1. Chronic small vessel ischemic change. No acute intracranial abnormality. Electronically signed by: Raúl Salguero M.D. 04/09/2018 5:53 PM
[2018-04-09] MEDS ORDERED: SIMVASTATIN 10 MG TAB PO SCH (21:00)
[2018-04-09] MEDS ORDERED: CHOLECALCIFEROL 1,000 UNITS TAB PO SCH (21:00)
[2018-04-09] MEDS ORDERED: AMIODARONE 200 MG TAB PO SCH (21:00)
[2018-04-09] MEDS ORDERED: CALCITRIOL 0.25 MCG CAPSULE PO SCH ×2 (21:00)
[2018-04-10 07:07] VITALS: TEMP 98.1
[2018-04-10 07:24] LABS: Creatinine Clr Calc Pharmacy 35.6 ml/min; Est GFR (African American) 54.4; Est GFR (Non-African American) 46.9
[2018-04-10] MEDS: CEROVITE ADV FORMULA TAB PO SCH (08:24)
[2018-04-10] MEDS: THIAMINE HCL 50 MG TABLET PO SCH (08:24)
[2018-04-10] MEDS: DABIGATRAN ETEXILATE 75 MG CAP PO SCH (08:25)
[2018-04-10] MEDS: CALCIUM CARBONATE 500 MG CHEWABLE TAB PO SCH (08:26)
[2018-04-10] MEDS: FERROUS SULFATE 325 MG TAB PO SCH (08:26)
[2018-04-10 15:17] VITALS: BP 161/73; PULSE 61; O2SAT 96
--- NOTE | 2018-04-12 10:32 | Discharge Summary ---
Date of Service April 10, 2018 Admission HPI Per Admitting Provider The patient is an 82-year-old female who was initially seen on April 03, 2018 in the ED for generalized weakness and difficulty with balance causing a fall episode where she sustained a nasal fracture. She then was seen at the emergency department on April 07 for similar symptoms, but did not sustain any injuries. Patient presents for the third time to the emergency department tonight with her daughter, with complaint of severe generalized weakness, with feeling like she could not move, imbalance, and disorientation. With discussion with the patient and her daughter in the ED [facility], it appears that she has been being reminded by a phone call to take her Aricept at nighttime, which she now takes on a regular basis, and likely is having side effects as noted above. Principal Diagnosis falls secondary to medication Discharge Exam Constitutional well developed and average body habitus Eyes no conjunctival abnormality and no scleral abnormality Neck normal visual inspection and trachea midline Respiratory normal respiratory effort; no respiratory distress Auscultation: lungs clear to auscultation bilaterally Cardiovascular RRR, no murmur, no edema Gastrointestinal (Abdomen) normal bowel sounds, soft, nontender, no hepatosplenomegaly Musculoskeletal no cyanosis or clubbing, extremities motor strength 5/5 Discharge Data Allergies Allergy/AdvReac Type Severity Reaction Status Date / Time Penicillins Allergy Unknown Rash Verified 04/09/18 01:16 risedronate sodium AdvReac Mild Nausea Unverified 04/09/18 01:16 Consultations 04/09/18 02:55 ED Decision to Admit Stat 04/09/18 05:52 Consult Case Management - Discharge Planning Routine Ordered Studies 04/09/18 01:25 CT head/brain wo con Urgent 04/09/18 13:53 MR brain wo con Routine Hospital Course (1) Generalized weakness: Generalized weakness/ataxia/imbalance/recent fall/medication side effect of Aricept-- she reports that within 1-3 hours of taking that over the past week, she felt she had noticeable mental status and gait performance delcine Stopping Aricept, has resulted in dramatic improvement family is concerned of possible issue prior to aricept, will proceed to mri of brain to eval of metastatic disease with history of breast cancer and or cva( with history of afib) Consult PT and OT, Pt feels that the pt needs 24 hour caregivers, I had a good conversation with the pts daughter who feels that she wishes to have the pt return home with family to see if her forgetfulness has some improvement but is also looking into personal care homes at this time. (2) Medication side effect: See above (3) Ataxia: See above (4) Atrial fibrillation: Atrial fibrillation/hypertension-- Continue amiodarone, and Pradaxa. (5) Hypertension: (6) Hyperlipidemia: Continue simvastatin 10 mg daily. (7) Fracture of nasal bone: Occurred during her first fall. just local pain control Total Time Total Time Spent Total Time Spent (In Minutes): greater than 30 minutes were required to prepare discharge Discharge Plan Discharge Items Patient Disposition: Home - Home Health Services Reason For Visit: WEAKNESS, ATAXIA FREQUENT FALLS - DRUG SIDE EFFECT Discharge Diagnosis: medication reaction Discharge Goals: Decrease discomfort, Diagnostic testing and Improve disease control Activity: Resume your previous activity Non-emergency contact: Primary Care Provider Call non-emergency contact if: you have any medication questions Follow-up/Referrals: Jose Daniel Francis MD [Primary Care Provider] - 04/15/18 7:30 am (Please, follow up at Dr. Francis's office with Yuko STOKES on SaturdayApril 15 at 7:30 am. *If you need to change this appointment, call the office at [phone].) Diet: Regular Addtl Provider Instructions: please follow up with primary care in one week Please see home health Prescriptions: Continue amiodarone 200 mg tablet 200 mg PO PM RF: 0 simvastatin 10 mg tablet 10 mg PO PM RF: 0 ferrous sulfate [iron] 325 mg (65 mg iron) Tablet 325 mg PO QAM RF: 0 calcium carbonate [Calci-Chew] 500 mg calcium (1,250 mg) Tablet,Chewable 500 mg PO QAM RF: 0 calcitriol 0.25 mcg capsule 0.25 mg PO PM RF: 0 thiamine HCl (vitamin B1) [Vitamin B-1] 50 mg Tablet PO QAM RF: 0 cholecalciferol (vitamin D3) [Vitamin D3] 1,000 unit Capsule 1,000 unit PO PM RF: 0 vit C-vit [id number]-lutein [PreserVision Lutein] 226 mg-200 unit -5 mg- 0.8 mg Capsule 1 tab PO QAM RF: 0 dabigatran etexilate 150 mg capsule 150 mg PO BID RF: 0 Discontinued donepezil 10 mg tablet 10 mg PO PM RF: 0 sulfamethoxazole-trimethoprim 800-160 mg tablet 1 tab PO QAM RF: 0 Stand-Alone Forms: [facility] Discharge Orders: Discharge Order (Routine); Ordered 04/10/18 Ordered By: Rob Benoit Admission Data Admit Date/Time: 04/09/18 03:57 Attending Provider: Rob Benoit Admit Provider: Adonis Perdue Primary Care Provider: Jose Daniel Francis Other Providers: Adonis Perdue Service: Medical Other Interventions: Discharge Summary Assessment (RN) Last Done: 04/10/18 16:15 Pending Studies at Discharge: No DC Date/Time DO NOT enter until pt leaves facility: 04/10/18 17:13
== END 2018-04-10 17:13 | disposition home health service (06) ==
LOC: ED 01:01 → 4E 01:01 → SUATTDRO 03:57 → 4E 05:18
DX: R53.1 Weakness; Z79.899 Other long term (current) drug therapy; Z88.8 Allergy status to other drugs, medicaments and biological substances; R27.0 Ataxia, unspecified; Z85.3 Personal history of malignant neoplasm of breast; I48.91 Unspecified atrial fibrillation; S02.2XXD Fracture of nasal bones, subsequent encounter for fracture with routine healing; I10 Essential (primary) hypertension; F01.50 Vascular dementia, unspecified severity, without behavioral disturbance, psychotic disturbance, mood disturbance, and anxiety; Z88.0 Allergy status to penicillin; R29.6 Repeated falls; W19.XXXD Unspecified fall, subsequent encounter

== ENCOUNTER 2018-06-26 13:54 | Inpatient (IN) ==
--- NOTE | 2018-06-26 14:52 | XRay Report ---
XR chest 1V portable CLINICAL HISTORY: confusion COMPARISON STUDY: 06/09/2018 FINDINGS: The heart is mildly enlarged. There is no failure. There is no focal pulmonary consolidatio n. There are no pleural effusions. Surgical clips project over the left axillary region. Slight incre ased attenuation of the axially portion the left chest, likely relates to overlying soft tissue atten uation.[ IMPRESSION: No active disease in the chest. Electronically signed by: Raul Carvajal M.D. 06/26/2018 2:51 PM
[2018-06-26 15:14] LABS: Eosinophils # (auto) 0.02 K/uL (0-0.5); Eosinophils % (auto) 0.2 %; Hematocrit (blood only) 37.8 % (37-47); Hemoglobin 12.8 g/dL (12.0-16.0); Immature Granulocytes # (auto) 0.03 K/uL (0.00-0.02); Immature Granulocytes % (auto) 0.3 %; Lymphocytes # (auto) 1.11 K/uL (1.2-3.4); Lymphocytes % (auto) 12.4 %; Mean Corpuscular Hgb Conc 33.9 g/dL (32-36); Mean Corpuscular Volume 90.2 fL (80-100); Mean Platelet Volume 11.1 fL (7.4-10.4); Monocytes # (auto) 0.83 K/uL (0.11-0.59); Monocytes % (auto) 9.3 %; Neutrophils # (auto) 6.98 K/uL (1.4-6.5); Neutrophils % (auto) 77.8 %; Platelet Count 220 K/uL (130-400); RDW Coefficient of Variation 14.9 % (11.5-14.5); RDW Standard Deviation 48.8 fL (36.4-46.3); Red Blood Count 4.19 M/uL (4.2-5.4); White Blood Count 8.97 K/uL (4.8-10.8)
[2018-06-26 15:33] LABS: Alanine Aminotransferase 63 U/L (12-78); Albumin Level 3.6 gm/dl (3.4-5.0); Aspartate Aminotransferase 35 U/L (15-37); BUN Creatinine Ratio 26.3 (10-20); Blood Urea Nitrogen 46 mg/dl (7-18); Calcium 9.3 mg/dl (8.5-10.1); Carbon Dioxide 28 mmol/L (21-32); Chloride 108 mmol/L (98-107); Est GFR (African American) 30.5; Est GFR (Non-African American) 26.3; Glucose 104 mg/dl (70-99); Potassium 3.3 mmol/L (3.5-5.1); Sodium 143 mmol/L (136-145)
[2018-06-26 15:43] LABS: Albumin Globulin Ratio 1.1 (0.9-2); Alkaline Phosphatase 47 U/L (45-117); Bilirubin,Total 0.9 mg/dl (0.2-1); Globulin 3.4 gm/dl (2.5-4.0); Troponin I 0.026 ng/ml (0-0.045)
[2018-06-26 15:47] LABS: Acetaminophen < 2 ug/ml (10-30); Salicylate < 1.7 mg/dl (2.8-20)
[2018-06-26] MEDS ORDERED: SODIUM CHLORIDE 0.9% 1000ML 1,000 ML IV ONE (16:16)
[2018-06-26 18:02] LABS: Appearance Urine Clear (Clear); Bacteria Urine Automated Negative (Negative); Bilirubin Urine Negative (Negative); Blood Urine Negative (Negative); Color Urine Yellow; Glucose Urine UA Negative (Negative); Ketones Urine Negative (Negative); Leukocyte Esterase Urine Trace (Negative); Nitrite Urine Negative (Negative); Protein Urine Negative (Negative); RBC Urine Automated 0-4 /hpf (0-4); Specific Gravity Urine 1.018 (1.000-1.030); Urobilinogen Urine Negative (Negative)
[2018-06-26 18:23] LABS: Amphetamines+Metham, Urine Neg (Neg); Barbiturates, Urine Neg (Neg); Benzodiazepine, Urine Neg (Neg); Cocaine, Urine Neg (Neg); MDMA (Ecstacy), Urine Neg (Neg); Methadone, Urine Neg (Neg); Opiate, Urine Neg (Neg); Phencyclidine, Urine Neg (Neg)
[2018-06-26] MEDS ORDERED: LORazepam 0.5 MG/1 ML VIAL IV STA (18:55)
--- NOTE | 2018-06-26 22:37 | Emergency Department Note ---
Entered by Aimee Jerome acting as a scribe for Stephen Mahajan M.D. History of Present Illness General Chief complaint: Mental Health Evaluation Source: patient and family (Son) Mode of arrival: EMS History of Present Illness Onset (ago): month(s) 2 Location: head (Dementia) Severity: similar to prior episodes Pain Consistency: + other (Worsening) Quality: + other (Dementia) Relieved By: + medication Associated symptoms: + confusion and + other (Visual hallucinations) Treatments prior to arrival: none The patient is an 82 year old female presenting to the Emergency Department complaining of worsening dementia starting 2 months ago. The patients son reports that the patient has dementia. He states that the patient was seeing people in her home who were not really there and began wandering. He notes that the patient has called him saying that she locked herself out of her house but when he went to see her, she was in her home sitting on her couch. He adds that the patient was taking medication that helped her symptoms for the past 2 years, but within the past 2 months her symptoms have worsened. The patients son reports that the patient moved into [facility] 8 days ago. He states that at [facility] the patient is refusing to take her medications and eat food. He notes that the patient is combative with staff at [facility]. He adds that the patient was found by [facility] staff on the floor of her room crying, saying that she wanted to COMMODITIES REQUIREMENTS ANALYST. He denies that the patient has a history of mental health. The patients son reports that he is a co-power of a transactional attorney of the patient. He states that the patient wandered away from [facility] a few days ago and was found on the side of the road by police. He explains that he does not know if [facility] can accommodate the patients symptoms and is seeking to have the patient placed in a different facility. The patient reports that she was given pills at [facility] and did not know where they came from or if they were real so she did not want to take them. She states that she also does not like the food that [facility] gives her so she doesnt want to eat it. She explains that her lower back hurts from a recent fall that she was seen in the [facility] Emergency Department for. Home Medications Home Medications Medication Instructions Recorded Confirmed Type amiodarone 200 mg PO PM 04/03/18 06/26/18 History calcium carbonate [Calci-Chew] 1,000 mg PO QAM 04/03/18 06/26/18 History ferrous sulfate [iron] 325 mg PO QAM 04/03/18 06/26/18 History amlodipine [Norvasc] 2.5 mg PO QPM 30 Days #15 tab 06/18/18 06/26/18 Rx dabigatran etexilate [Pradaxa] 75 mg PO BID 30 Days #60 cap 06/18/18 06/26/18 Rx memantine [Namenda] 10 mg PO QAM 30 Days #30 tab 06/18/18 06/22/18 Rx lorazepam 0.5 mg PO TID PRN 06/20/18 06/26/18 History vit C,O-Aa-moaht-lutein-zeaxan 1 tab PO BIDM 06/20/18 06/26/18 History [PreserVision AREDS-2] prednisone 20 mg PO DAILY #4 tab 06/23/18 06/26/18 Rx acetaminophen [Acetaminophen Extra 500 mg PO Q8H PRN 06/26/18 06/26/18 History Strength] Allergies Allergy/AdvReac Type Severity Reaction Status Date / Time Penicillins Allergy Mild Rash Verified 06/22/18 22:51 risedronate sodium AdvReac Mild Nausea Verified 06/22/18 22:51 Past Med/Surg History Medical History Atrial fibrillation (Chronic) Hypertension (Chronic) Vertigo (Resolved) Open fracture of radius (Resolved) Breast cancer, left Heart valve problem Kidney disease sees Dr. Cruz for kidneys per daughter Vascular dementia Surgical History Tubal ligation status (Chronic) History of left mastectomy Family History Mother , Patient claims her mother in her late 40s of blood clots. Deep vein thrombosis Father , Patient claims father in his early 80s from a motor vehicle accident No problems noted. Other No significant family history Social History Preferred Language: Sinhala Communication Ability: Effective Beliefs That Will Affect Care: None Current Living Situation: Alone current occupational status: retired Feels Safe at Home: Yes Smoking Status: Never smoker Hx Alcohol Use: No Hx Substance Use: No Review of Systems See HPI for pertinent positives & negatives. and A total of 10 systems reviewed and were otherwise negative Physical Exam Vital Signs Vital Signs - 24 hr 06/26/18 13:43 06/26/18 17:52 Temperature 36.3 C L Temperature Source Oral Sepsis Recent Fever Within 48 Hours No Sepsis New/Unexplained Change in Mental Status No Sepsis Action Taken by Nursing No Action Required Pulse Rate 73 Pulse Rate [Finger] 62 Respiratory Rate 19 17 Respiratory Effort / Characteristics Non-Labored Non-Labored Respiratory Depth Normal Normal Respiratory Pattern Regular Blood Pressure 148/87 H Blood Pressure Mean 107 Blood Pressure Position Sitting Pulse Oximetry 98 99 Oxygen Delivery Method Room Air Room Air GENERAL: Awake, alert, well-appearing, in no distress. Limited recollection of events earlier today. HENT: Normocephalic, atraumatic. EYES: Normal conjunctiva. Sclera non-icteric. NECK: Supple. No nuchal rigidity. RESPIRATORY: Clear to auscultation. No wheezes. Normal respiratory effort. CARDIAC: Normal rate. Normal rhythm. Extremities warm and well perfused. GI: Soft, non-distended. No tenderness to palpation. No rebound or guarding. No masses. RECTAL: Deferred. MUSCULOSKELETAL: Atraumatic. Chest examination reveals no tenderness. LOWER EXTREMITIES: Calves are equal size bilaterally and non-tender. No edema NEURO: No sensory or motor deficits noted. No facial droop. PSYCH: Denies SI and HI. Memory limitations. SKIN: Warm and dry. No rash or jaundice noted. Course 1400: The patient was evaluated in room A8, and a complete history and physical examination were performed. 1522: I spoke to the psychiatric telephonic nurse case manager about the patient at this time. 2030: I discussed the patients case with the psychiatric telephonic nurse case manager at this time. 2299: I discussed the patient's case with Dr. Roque [place] [facility] [place] [facility] [place]. She will evaluate the patient for further management. Administered Medications Discontinued Medications Sodium Chloride (Nss 1000ml) 1,000 mls @ 999 mls/hr IV .Q1H1M ONE Stop: 06/26/18 17:16 Last Infusion: 06/26/18 17:53 Dose: 0 mls/hr Documented by: [id number] Admin: 06/26/18 16:42 Dose: 999 mls/hr Documented by: [id number] Lorazepam (Ativan) 0.5 mg in 1 mls @ 1 mls/min IV NOW STA Stop: 06/26/18 18:56 Last Admin: 06/26/18 19:13 Dose: 1 mls/min Documented by: [id number] Medical Decision Making Differential Diagnosis Differential includes toxic ingestions, self-mutilation, suicidal ideation, suicide attempt, depression. Medical Records Attestation: I reviewed the patient's medical records. Home Medications Current Medication List: was personally reviewed by me Laboratory Data Attestation: I reviewed the patient's lab results. Result diagrams: 06/26/18 14:52 06/26/18 14:52 Lab Results 06/26/18 06/26/18 06/26/18 Range/Units 14:52 14:52 14:52 WBC 8.97 (4.8-10.8) K/uL RBC 4.19 L (4.2-5.4) M/uL Hgb 12.8 (12.0-16.0) g/dL Hct 37.8 (37-47) % MCV 90.2 (80-100) fL MCH 30.5 (25-34) pg MCHC 33.9 (32-36) g/dL RDW Std Deviation 48.8 H (36.4-46.3) fL RDW Coeff of Griselda 14.9 H (11.5-14.5) % Plt Count 220 (130-400) K/uL MPV 11.1 H (7.4-10.4) fL Immature Gran % (Auto) 0.3 % Neut % (Auto) 77.8 % Lymph % (Auto) 12.4 % Roberts % (Auto) 9.3 % Eos % (Auto) 0.2 % Baso % (Auto) 0.0 % Immature Gran # (Auto) 0.03 H (0.00-0.02) K/uL Neut # (Auto) 6.98 H (1.4-6.5) K/uL Lymph # (Auto) 1.11 L (1.2-3.4) K/uL Roberts # (Auto) 0.83 H (0.11-0.59) K/uL Eos # (Auto) 0.02 (0-0.5) K/uL Baso # (Auto) 0.00 (0-0.2) K/uL Sodium 143 (136-145) mmol/L Potassium 3.3 L (3.5-5.1) mmol/L Chloride 108 H (98-107) mmol/L Carbon Dioxide 28 (21-32) mmol/L Anion Gap 7.0 (3-11) BUN 46 H (7-18) mg/dl Creatinine 1.76 H (0.6-1.2) mg/dl Est Cr Clr Drug Dosing Not Reportable Est GFR ( Amer) 30.5 Est GFR (Non-Af Amer) 26.3 BUN/Creatinine Ratio 26.3 H (10-20) Glucose 104 H (70-99) mg/dl Calcium 9.3 (8.5-10.1) mg/dl Total Bilirubin 0.9 (0.2-1) mg/dl AST 35 (15-37) U/L ALT 63 (12-78) U/L Alkaline Phosphatase 47 (45-117) U/L Ammonia (11-32) umol/L Troponin I 0.026 (0-0.045) ng/ml Total Protein 7.0 (6.4-8.2) gm/dl Albumin 3.6 (3.4-5.0) gm/dl Globulin 3.4 (2.5-4.0) gm/dl Albumin/Globulin Ratio 1.1 (0.9-2) TSH 0.588 (0.300-4.500) uIu/ml Urine Color Urine Appearance (Clear) Urine pH (4.5-7.5) Ur Specific [place] (1.000-1.030) Urine Protein (Negative) Urine Glucose (UA) (Negative) Urine Ketones (Negative) Urine Blood (Negative) Urine Nitrite (Negative) Urine Bilirubin (Negative) Urine Urobilinogen (Negative) Ur Leukocyte Esterase (Negative) Urine WBC (Auto) (0-5) /hpf Urine RBC (Auto) (0-4) /hpf U Hyaline Cast (Auto) (0-5) /lpf U Epithel Cells (Auto) (0-5) /lpf Urine Bacteria (Auto) (Negative) Salicylates < 1.7 L (2.8-20) mg/dl Urine Opiates Screen (Neg) Ur Methadone, Qual (Neg) Acetaminophen < 2 L (10-30) ug/ml Urine Barbiturates (Neg) Ur Phencyclidine (PCP) (Neg) U Amphetamin/Meth Scrn (Neg) MDMA (Ecstasy) Screen (Neg) U Benzodiazepines Scrn (Neg) Ur Cocaine Metabolite (Neg) U Marijuana (THC) Screen (Neg) Ethyl Alcohol mg/dL (0-3) mg/dl 06/26/18 06/26/18 06/26/18 Range/Units 14:52 14:52 17:45 WBC (4.8-10.8) K/uL RBC (4.2-5.4) M/uL Hgb (12.0-16.0) g/dL Hct (37-47) % MCV (80-100) fL MCH (25-34) pg MCHC (32-36) g/dL RDW Std Deviation (36.4-46.3) fL RDW Coeff of Griselda (11.5-14.5) % Plt Count (130-400) K/uL MPV (7.4-10.4) fL Immature Gran % (Auto) % Neut % (Auto) % Lymph % (Auto) % Roberts % (Auto) % Eos % (Auto) % Baso % (Auto) % Immature Gran # (Auto) (0.00-0.02) K/uL Neut # (Auto) (1.4-6.5) K/uL Lymph # (Auto) (1.2-3.4) K/uL Roberts # (Auto) (0.11-0.59) K/uL Eos # (Auto) (0-0.5) K/uL Baso # (Auto) (0-0.2) K/uL Sodium (136-145) mmol/L Potassium (3.5-5.1) mmol/L Chloride (98-107) mmol/L Carbon Dioxide (21-32) mmol/L Anion Gap (3-11) BUN (7-18) mg/dl Creatinine (0.6-1.2) mg/dl Est Cr Clr Drug Dosing Est GFR ( Amer) Est GFR (Non-Af Amer) BUN/Creatinine Ratio (10-20) Glucose (70-99) mg/dl Calcium (8.5-10.1) mg/dl Total Bilirubin (0.2-1) mg/dl AST (15-37) U/L ALT (12-78) U/L Alkaline Phosphatase (45-117) U/L Ammonia < 10.0 L (11-32) umol/L Troponin I (0-0.045) ng/ml Total Protein (6.4-8.2) gm/dl Albumin (3.4-5.0) gm/dl Globulin (2.5-4.0) gm/dl Albumin/Globulin Ratio (0.9-2) TSH (0.300-4.500) uIu/ml Urine Color Urine Appearance (Clear) Urine pH (4.5-7.5) Ur Specific [place] (1.000-1.030) Urine Protein (Negative) Urine Glucose (UA) (Negative) Urine Ketones (Negative) Urine Blood (Negative) Urine Nitrite (Negative) Urine Bilirubin (Negative) Urine Urobilinogen (Negative) Ur Leukocyte Esterase (Negative) Urine WBC (Auto) (0-5) /hpf Urine RBC (Auto) (0-4) /hpf U Hyaline Cast (Auto) (0-5) /lpf U Epithel Cells (Auto) (0-5) /lpf Urine Bacteria (Auto) (Negative) Salicylates (2.8-20) mg/dl Urine Opiates Screen Neg (Neg) Ur Methadone, Qual Neg (Neg) Acetaminophen (10-30) ug/ml Urine Barbiturates Neg (Neg) Ur Phencyclidine (PCP) Neg (Neg) U Amphetamin/Meth Scrn Neg (Neg) MDMA (Ecstasy) Screen Neg (Neg) U Benzodiazepines Scrn Neg (Neg) Ur Cocaine Metabolite Neg (Neg) U Marijuana (THC) Screen Neg (Neg) Ethyl Alcohol mg/dL < 3.0 (0-3) mg/dl 06/26/18 Range/Units 17:45 WBC (4.8-10.8) K/uL RBC (4.2-5.4) M/uL Hgb (12.0-16.0) g/dL Hct (37-47) % MCV (80-100) fL MCH (25-34) pg MCHC (32-36) g/dL RDW Std Deviation (36.4-46.3) fL RDW Coeff of Griselda (11.5-14.5) % Plt Count (130-400) K/uL MPV (7.4-10.4) fL Immature Gran % (Auto) % Neut % (Auto) % Lymph % (Auto) % Roberts % (Auto) % Eos % (Auto) % Baso % (Auto) % Immature Gran # (Auto) (0.00-0.02) K/uL Neut # (Auto) (1.4-6.5) K/uL Lymph # (Auto) (1.2-3.4) K/uL Roberts # (Auto) (0.11-0.59) K/uL Eos # (Auto) (0-0.5) K/uL Baso # (Auto) (0-0.2) K/uL Sodium (136-145) mmol/L Potassium (3.5-5.1) mmol/L Chloride (98-107) mmol/L Carbon Dioxide (21-32) mmol/L Anion Gap (3-11) BUN (7-18) mg/dl Creatinine (0.6-1.2) mg/dl Est Cr Clr Drug Dosing Est GFR ( Amer) Est GFR (Non-Af Amer) BUN/Creatinine Ratio (10-20) Glucose (70-99) mg/dl Calcium (8.5-10.1) mg/dl Total Bilirubin (0.2-1) mg/dl AST (15-37) U/L ALT (12-78) U/L Alkaline Phosphatase (45-117) U/L Ammonia (11-32) umol/L Troponin I (0-0.045) ng/ml Total Protein (6.4-8.2) gm/dl Albumin (3.4-5.0) gm/dl Globulin (2.5-4.0) gm/dl Albumin/Globulin Ratio (0.9-2) TSH (0.300-4.500) uIu/ml Urine Color Yellow Urine Appearance Clear (Clear) Urine pH 6.0 (4.5-7.5) Ur Specific [place] 1.018 (1.000-1.030) Urine Protein Negative (Negative) Urine Glucose (UA) Negative (Negative) Urine Ketones Negative (Negative) Urine Blood Negative (Negative) Urine Nitrite Negative (Negative) Urine Bilirubin Negative (Negative) Urine Urobilinogen Negative (Negative) Ur Leukocyte Esterase Trace H (Negative) Urine WBC (Auto) 1-5 (0-5) /hpf Urine RBC (Auto) 0-4 (0-4) /hpf U Hyaline Cast (Auto) 1-5 (0-5) /lpf U Epithel Cells (Auto) 10-20 H (0-5) /lpf Urine Bacteria (Auto) Negative (Negative) Salicylates (2.8-20) mg/dl Urine Opiates Screen (Neg) Ur Methadone, Qual (Neg) Acetaminophen (10-30) ug/ml Urine Barbiturates (Neg) Ur Phencyclidine (PCP) (Neg) U Amphetamin/Meth Scrn (Neg) MDMA (Ecstasy) Screen (Neg) U Benzodiazepines Scrn (Neg) Ur Cocaine Metabolite (Neg) U Marijuana (THC) Screen (Neg) Ethyl Alcohol mg/dL (0-3) mg/dl Imaging Data Radiologist's Impression: Radiology results as stated below per my review and the radiologist's interpretation: XR chest 1V portable CLINICAL HISTORY: confusion COMPARISON STUDY: 06/09/2018 FINDINGS: The heart is mildly enlarged. There is no failure. There is no focal pulmonary consolidation. There are no pleural effusions. Surgical clips project over the left axillary region. Slight increased attenuation of the axially portion the left chest, likely relates to overlying soft tissue attenuation.[ IMPRESSION: No active disease in the chest. Electronically signed by: Raul Carvajal M.D. 06/26/2018 2:51 PM ECG Data Attestation: I personally reviewed and interpreted this ECG as follows: Indication: other (Confusion) Rate (beats per minute): 63 Rhythm: normal sinus Findings: + other (Non-specific t wave changes.); no PVC, no ST depression and no ST elevation Blood Pressure Blood Pressure Findings: Elevated blood pressure Blood Pressure Disposition: Referred to patients primary care provider TRUDI Almonte Patient is an 82-year-old female with a past medical history including hypertension, breast cancer, kidney disease, vascular dementia, and atrial fibrillation on amiodarone and Xarelto presenting from her facility via EMS today with behavioral concerns. Evaluation this spring for worsening of her mental status including MRI and metabolic work-up. Negative ammonia level. Kidney function does appear little bit worse than previous like related to her decreased intake but is been hydrating here okay. Given a liter of IV fluid. Patient's thyroid studies within normal limits. Patient does have a slightly detectable but not abnormal troponin. No evidence of acute UTI. Not again having any chest pain or believe that this not significant at this time. Again already has had a recent extensive work-up including recent neurology consult. Feel at this time that she is medically cleared especially after hydration.. Discussed with the son who was present concerns. He believes at this point given that she is not a locked dementia unit wandering away from the facility and they are unable to adequately care for believe that inpatient treatment or locked dementia may be best. Patient later became agitated she received some Ativan to help with this. Signed out pending placement. Impression & Plan Dementia, Dehydration, Agitation Discharge Plan Visit Data Chief Complaint: Mental Health Evaluation ED Provider: Stephen Mahajan Discharge Problem: Dementia, Dehydration, Agitation Patient Disposition: Still a Patient Forms Stand Alone Forms: [facility] [employer] Prescriptions Prescriptions: No Action amlodipine [Norvasc] 5 mg Tablet 2.5 mg PO QPM 30 Days Qty: 15 RF: 3 memantine [Namenda] 10 mg Tablet 10 mg PO QAM 30 Days Qty: 30 RF: 3 Pradaxa 75 mg Capsule 75 mg PO BID 30 Days Qty: 60 RF: 3 lorazepam 0.5 mg Tablet 0.5 mg PO TID PRN (Reason: AGITATION/ANXIETY) RF: 0 PreserVision AREDS-2 [id number] Capsule 1 tab PO BIDM RF: 0 prednisone 20 mg tablet 20 mg PO DAILY Qty: 4 RF: 0 amiodarone 200 mg tablet 200 mg PO PM RF: 0 ferrous sulfate [iron] 325 mg (65 mg iron) Tablet 325 mg PO QAM RF: 0 calcium carbonate [Calci-Chew] 500 mg calcium (1,250 mg) Tablet,Chewable 1,000 mg PO QAM RF: 0 acetaminophen [Acetaminophen Extra Strength] 500 mg Tablet 500 mg PO Q8H PRN (Reason: Pain) RF: 0 Referrals [facility], [Primary Care Provider[facility] - Discharge Problem: Dementia Qualifiers: Dementia type: unspecified type Dementia behavioral disturbance: with behavioral disturbance Qualified Code(s): F03.91 - Unspecified dementia with behavioral disturbance The scribe's documentation has been prepared under my direction and personally reviewed by me in its entirety. I confirm that the note above accurately reflects all work, treatment, procedures, and medical decision making performed by me.
[2018-06-26] MEDS ORDERED: AMLODIPINE BESYLATE 5 MG TAB PO STA (22:38)
[2018-06-26] MEDS ORDERED: AMIODARONE 200 MG TAB PO STA (22:38)
--- NOTE | 2018-06-27 00:37 | Emergency Department Note ---
ED Visit Note This case was signed out to me at change of shift awaiting bed placement. The patient is resting comfortably at this time. The patient's family would like admission to [facility]. There are no beds available there at this time. There will be beds available there after discharges this morning. The patient rested throughout the night. I ordered morning medications for her. The case will be signed out to Dr. King at change of shift awaiting bed placement. . : Dementia Qualifiers: Dementia type: unspecified type Dementia behavioral disturbance: with behavioral disturbance Qualified Code(s): F03.91 - Unspecified dementia with behavioral disturbance
[2018-06-27] MEDS ORDERED: DABIGATRAN ETEXILATE 75 MG CAP PO STA (05:20)
[2018-06-27] MEDS ORDERED: CALCIUM CARBONATE 500 MG CHEWABLE TAB PO STA (05:20)
[2018-06-27] MEDS ORDERED: FERROUS SULFATE 325 MG TAB PO STA (05:20)
[2018-06-27] MEDS: DABIGATRAN ETEXILATE 75 MG CAP PO SCH ×3 (06:16→22:20)
[2018-06-27] MEDS ORDERED: MEMANTINE HCL 10 MG TAB PO SCH (09:00)
--- NOTE | 2018-06-27 15:01 | Emergency Department Note ---
ED Visit Note Placement is still pending. Signed out to Dr. Langley. . : Dementia Qualifiers: Dementia type: unspecified type Dementia behavioral disturbance: with behavioral disturbance Qualified Code(s): F03.91 - Unspecified dementia with behavioral disturbance
[2018-06-27] MEDS ORDERED: HALOPERIDOL LACTATE 5 MG/ML 1 ML VIAL IM STA (15:09)
--- NOTE | 2018-06-27 16:26 | Emergency Department Note ---
ED Visit Note History and physical verified by me. Patient signed out to me change of shift. Pt was accepted to [facility]. . : Dementia Qualifiers: Dementia type: Alzheimer's disease Dementia behavioral disturbance: with behavioral disturbance
[2018-06-27] MEDS ORDERED: ALUMINUM/MAGNESIUM SUSP 30 ML UDC PO PRN (18:33)
[2018-06-27] MEDS ORDERED: SODIUM CHLORIDE 0.65% NA SOLN 45 ML (OCEAN) PRN (18:33)
[2018-06-27] MEDS ORDERED: MAGNESIUM HYDROXIDE SUSP 30 ML UDC PO PRN (18:33)
[2018-06-27] MEDS ORDERED: ACETAMINOPHEN 325 MG TAB PO PRN (18:33)
[2018-06-27] MEDS ORDERED: BISMUTH SUBSALICYLATE PER ML OMNICELL CHARGE PO PRN (18:33)
[2018-06-27] MEDS: AMLODIPINE BESYLATE 5 MG TAB PO SCH (21:54)
[2018-06-27] MEDS: AMIODARONE 200 MG TAB PO SCH (21:54)
[2018-06-27] MEDS: TRAZODONE HCL 50 MG TAB PO PRN (21:56)
[2018-06-28] MEDS: DABIGATRAN ETEXILATE 75 MG CAP PO SCH ×2 (09:36→20:47)
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
[2018-06-28] MEDS: ACETAMINOPHEN 500 MG TAB PO PRN ×2 (12:38→21:06)
[2018-06-28] MEDS ORDERED: PNEUMOCOCCAL ADMINISTRATION CHARGE ONE (13:00)
[2018-06-28] MEDS ORDERED: PNEUMOCOCCAL POLYSACCHARIDES 25 MCG/0.5 ML VIAL/SYR IM ONE (13:00)
[2018-06-28] MEDS: AMIODARONE 200 MG TAB PO SCH (20:47)
[2018-06-28] MEDS: AMLODIPINE BESYLATE 5 MG TAB PO SCH (20:48)
[2018-06-28] MEDS: TRAZODONE HCL 50 MG TAB PO PRN (22:51)
[2018-06-29] MEDS: DABIGATRAN ETEXILATE 75 MG CAP PO SCH ×2 (08:00→21:27)
[2018-06-29] MEDS: ACETAMINOPHEN 500 MG TAB PO PRN ×2 (08:21→17:21)
--- NOTE | 2018-06-29 08:53 | Psychiatric Progress Note ---
Date of Service June 29, 2018 Impression / Recommendations Impression 82-year-old white female with a history of severe dementia, mixed vascular and Alzheimer's type, as well as multiple medical problems including A. fib, hypertension, hyperlipidemia, chronic kidney disease, and multiple falls over the past few months who presented with agitation, paranoia, suicidal statements, and poor cooperation at her assisted living facility, and was admitted voluntarily per her POAs. She has a history of several months decompensation with multiple medication changes, medical problems, and falls, and 10 days prior to this hospitalization she was discharged from the hospitalist service to [facility]. Her behavior there worsened, as she was wandering, refusing food and medications, and acting erratically, at one point lying on the floor and making suicidal statements. Her mental status has now improved, and since admission she has had no depressive, anxiety, or psychotic symptoms, and although disoriented and demented, does not meet criteria for any other psychiatric diagnosis. Her recent behavioral changes are most likely related to her dementia, and were exacerbated by the prednisone and multiple environmental changes (hospitalized and then discharged to an assisted living facility, where she had previously been living at home alone). Two of her children are her POAs and would like her to return to [facility]. (1) Dementia: 06/28 -patient was seen by neurology during her hospitalization earlier this month, diagnosed with severe dementia, mixed vascular and Alzheimer's type. She has had intermittent behavioral disturbance due to her dementia, which has been more pronounced over the past couple of months. Likely exacerbated by pain, medications (namely prednisone), and environmental changes (multiple hospitalizations and recent assisted living placement). She appears much clearer today, we will start working on appropriate placement with her POAs. -Donepezil was stopped years ago due to side effects, and memantine was just started earlier this month, but held at [facility] due to worsening mental status. We will continue to hold it for now, and we will coordinate with her outpatient neurologist on Saturday to arrange follow-up in the next few weeks. -Discontinue lorazepam which was ordered as needed by her PCP last week, as family reports she has responded poorly to sedatives in the past, risk of delirium with benzodiazepines, and she is already at very high risk of falls. Will avoid antipsychotic medication, as QTC was prolonged (503) at the time of her most recent EKG 06/26/2018. -Frequent reorientation, use of familiar objects, encourage family to visit. -Family and social services designee to contact [facility] to discuss appropriate placement. 06/29 -Continue current medications (Pradaxa, amlodipine, and amiodarone). -PT and OT consults, as she has been weak with multiple falls recently. -Avoid medications likely to exacerbate mental status, such as steroids, or increased fall risk, such as benzodiazepines. (2) History of atrial fibrillation: 06/28 -EKG on presentation was normal sinus rhythm, with prolonged QTC 503. -Continue amiodarone for rate control, and anticoagulation with Pradaxa. (3) CKD (chronic kidney disease): 06/28 -baseline creatinine about 1.5; on admission 1.76 with BUN of 46. En courage fluids, and recheck BMP tomorrow. Avoid nephrotoxic agents. 06/29 -BMP today shows improving kidney function, with BUN 39 and creatinine 1.65. Continue to encourage fluids. -Nursing staff report the patient has had urinary frequency, repeat UA ordered. She is afebrile, and denies dysuria. (4) Hyperlipidemia: 06/28 -Per hospitalist notes from recent admission, she was on simvastatin, but was not discharged on the medication. Contact PCP, Dr. Francis, to clarify medication. (5) Hypertension: 06/28 -was hypertensive during recent hospitalization and amlodipine was added, continue 2.5 mg daily, and monitor blood pressure. 06/29 -blood pressure has been within normal limits since admission. (6) URI (upper respiratory infection): 06/29 -patient reports nonproductive cough, but denies congestion, shortness of breath, chest pain. Offer Mucinex and throat lozenges as needed. Present on Admission?: Yes Inventory Assets Strengths: Supportive family, POA Needs: Appropriate placement Risk Factors Assessment Male: No : Yes Do You Have Access To A Gun?: No Health Problems: Yes Mental Health Diagnoses: No Substance Use Disorders: No Previous Attempt: No Family History of Suicide: No Previous Psychiatric Hospitalization: No Hopelessness: No Smoker: No Protective Factors Assessment : No Responsible for Young Children: No Employed: No Stable Relationships: Yes Supportive Family: Yes Good Rapport with Provider: Yes Interval History Identifying Information MCKENNA MORA is a 82-year-old F who currently lives in [facility], has no psychiatric history but a history of Alzheimer's dementia, atrial fibrillation, CKD, hypertension, and hyperlipidemia and was admitted on 06/27/18 18:33 on a 201 voluntary commitment for altered mental status. She was signed in voluntarily by her daughter who is her power of senior trial attorney. Chief Complaint "I'm fine thank you". Review of Systems Notes + Nonproductive cough, no chest pain, shortness of breath, nasal/sinus congestion, sore throat. ?urinary frequency, no dysuria or urgency. + Sacral pain, worse when lying on her back, denies pain elsewhere Sleep Information Total Hours of Sleep: 4.75 Sleep Comments: pt appeared to be asleep @0030 and thereafter. pt on 1:1 during the night. pt on q-15 minute checks Meal Information Percent Meal Consumed - Breakfast: 10 Percent Meal Consumed - Dinner: 20 Subjective Subjective Patient was seen & assessed and interval progress reviewed with nursing and social work. Staff report she had multiple visitors, and a meeting was held with the social services designee, this physician, and her daughter who is her POA. Family has a preference for her to return to [facility]. Patient has consistently denied thoughts of harming herself, has been calm and cooperative, with no agitation. Nursing evaluated her sacral area, she was reporting pain, and no erythema or bruising noted. Staff did note a light blue bruise on the top of her head while they were combing her hair; patient denied that it was painful. She was seen in her room where she is resting comfortably in bed. She states her mood is "good," denies symptoms of depression, hallucinations, paranoia, and thoughts of harming herself or anyone else. She reports dizziness is improved, but she requires staff assistance to walk to the bathroom. Although nursing staff has noted urinary frequency, the patient denies this, and also denies dysuria and urgency. She reports a cough, unsure how long it has been going on. She reports good appetite and sleep. Physical Exam Psychiatric Orientation: alert, oriented to person and cooperative; + not oriented to place and + not oriented to time Apperance: appropriately dressed, appropriately groomed and appeared stated age Eye Contact: good eye contact Motor Behavior: no abnormal motor movements Lying in bed Speech: normal rate/rhythm/volume of speech (Soft spoken) Affect: euthymic affect and mood congruent with affect "Good." Thought Process: + confabulations Thought Content: reality based without delusions Suicidal Thoughts: denies suicidal thoughts Homicidal Thoughts: denies homicidal thoughts Hallucinations: no auditory hallucinations and no visual hallucinations Cognition: attention grossly intact; + recent memory not intact, + remote memory not intact and + language not intact (Word finding difficulties, struggles to answer questions) Insight: + impaired insight Judgement: + impaired judgement Vital Signs (Past 24 Hours) Last Vital Signs Temp 36.4 C L 06/29/18 06:54 Pulse 111 H 06/29/18 06:54 Resp 18 06/29/18 06:54 BP 135/84 06/29/18 06:54 Pulse Ox 99 06/27/18 17:23 Results & Data Current Inpatient Medications Current Inpatient Medications: Current Inpatient Medications Acetaminophen (Tylenol) 1,000 mg PO Q8H PRN PRN Reason: Pain Stop: 07/28/18 11:59 Last Admin: 06/29/18 08:21 Dose: 1,000 mg Documented by: Al Hydrox/Mg Hydrox/Simethicone (Maalox) 30 ml PO Q4H PRN PRN Reason: GI Upset Stop: 07/27/18 18:32 Amiodarone HCl (Cordarone) 200 mg PO HS [facility] Stop: 07/27/18 21:59 Last Admin: 06/28/18 20:47 Dose: 200 mg Documented by: Amlodipine Besylate (Norvasc) 2.5 mg PO [facility] Stop: 07/27/18 21:59 Last Admin: 06/28/18 20:48 Dose: 2.5 mg Documented by: Bismuth Subsalicylate (Kaopectate) 15 ml PO PRN PRN PRN Reason: Loose Stool Stop: 07/27/18 18:32 Dabigatran (Pradaxa) 75 mg PO BID [facility] Stop: 07/26/18 22:44 Last Admin: 06/29/18 08:00 Dose: 75 mg Documented by: Magnesium Hydroxide (Milk Of Magnesia) 30 ml PO DAILY PRN PRN Reason: Heartburn Stop: 07/27/18 18:32 Sodium Chloride (Tyrrell Nasal) 1 - 2 sprays NA PRN PRN PRN Reason: Nasal Dryness/Congestion Stop: 07/27/18 18:32 Trazodone HCl (Desyrel) 25 mg PO Q6H PRN PRN Reason: Anxiety Stop: 07/27/18 19:59 Last Admin: 06/27/18 21:56 Dose: 25 mg Documented by: Post Discharge Appointments Primary Care Physician Name Of Family Doctor: Dr. Francis Therapist Name of Therapist: fabriceies Manganese Heater Name of Manganese Heater: fatoumata CPT Code CPT Code 22999 (1) Dementia Dementia behavioral disturbance: with behavioral disturbance Dementia type: Alzheimer's disease (2) Hyperlipidemia Hyperlipidemia type: unspecified Qualified Code(s): E78.5 - Hyperlipidemia, unspecified (3) Hypertension Hypertension type: essential hypertension Qualified Code(s): I10 - Essential (primary) hypertension
[2018-06-29 09:44] LABS: BUN Creatinine Ratio 23.5 (10-20); Calcium 9.1 mg/dl (8.5-10.1); Creatinine Clr Calc Pharmacy 21.4 ml/min; Est GFR (African American) 32.9; Est GFR (Non-African American) 28.4; Potassium 3.4 mmol/L (3.5-5.1)
[2018-06-29] MEDS ORDERED: COUGH DROP (SUGAR FREE) LOZ 24 LOZ/1 BOX BUCCAL PRN (10:07)
[2018-06-29] MEDS: guaiFENesin 600 MG TABCR PO SCH ×2 (10:38→21:28)
[2018-06-29] MEDS: AMLODIPINE BESYLATE 5 MG TAB PO SCH (21:26)
[2018-06-29] MEDS: AMIODARONE 200 MG TAB PO SCH (21:26)
[2018-06-30] MEDS: ACETAMINOPHEN 500 MG TAB PO PRN (03:10)
[2018-06-30] MEDS: DABIGATRAN ETEXILATE 75 MG CAP PO SCH (08:42)
--- NOTE | 2018-06-30 09:37 | Discharge Summary ---
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 immediately. 3. Utilize new healthy coping skills, anger management skills, and stress management skills learned during your hospitalization. Journal feelings and process them with a support person. Identify stressors or situations that may result in relapse, deterioration or inappropriate behaviors and develop a plan to deal with those issues. 4. If your coping skills are ineffective and you are in crisis, contact your outpatient providers for direction. If unable to reach your providers, please call the CAN HELP LINE AT or go to the closest Emergency Room. 5. Avoid alcohol and un-prescribed drugs. 6. You have been provided with the Mental Health Advance Directives Pamphlet for your review. AFTERCARE APPOINTMENTS: * Please call your insurance company prior to your scheduled appointment to confirm your aftercare providers are covered. Take your insurance information to your appointments. WHO TO CALL AND WHEN: Medical Emergencies: For questions or emergencies related to your hospital stay, please contact the Inpatient Behavioral Health Unit at [phone]. A superintendent service is on-call 24/09 for the Behavioral Health Unit for emergencies At any time you feel your situation is an emergency, you may also call 911 immediately. Your Doctors Instructions noted above were prepared by provider Soheila Miguel MD. Prescriptions: Continued amlodipine [Norvasc] 5 mg Tablet 2.5 mg PO QPM 30 Days Qty: 15 RF: 3 Pradaxa 75 mg Capsule 75 mg PO BID 30 Days Qty: 60 RF: 3 PreserVision AREDS-2 [phone] Capsule 1 tab PO BIDM RF: 0 amiodarone 200 mg tablet 200 mg PO PM RF: 0 ferrous sulfate [iron] 325 mg (65 mg iron) Tablet 325 mg PO QAM RF: 0 calcium carbonate [Calci-Chew] 500 mg calcium (1,250 mg) Tablet,Chewable 1,000 mg PO QAM RF: 0 acetaminophen [Acetaminophen Extra Strength] 500 mg Tablet 1,000 mg PO Q8H PRN (Reason: Pain) RF: 0 Discontinued lorazepam 0.5 mg Tablet 0.5 mg PO TID PRN (Reason: AGITATION/ANXIETY) RF: 0 prednisone 20 mg tablet 20 mg PO DAILY Qty: 4 RF: 0 Stand-Alone Forms: [facility] Discharge Orders: Discharge Order (Routine); Ordered 06/30/18 Ordered By: Soheila Miguel Admission Data Admit Date/Time: 06/27/18 18:33 Attending Provider: Soheila Miguel Admit Provider: Soheila Miguel Primary Care Provider: Carolyn Slaughter Providers: Soheila Miguel Service: Psychiatry Other Interventions: PSY Interdisciplinary Discharge Planning Last Done: 06/30/18 09:14 Pending Studies at Discharge: No
--- OUTSIDE RECORDS SUMMARY | 2018-06-30 21:32 | External Medical Summary | Continuity of Care Document ---
:1935 Author Name Hitesh Flores, Provider Address Unavailable Unavailable , Care Team Providers Name Role Phone Mariam Flores, Live Unavailable [email or web address] M.D., Clive Humphrey Unavailable [email or web address] [email or web address] Palencia PA-C Unavailable [email or web address] Anthony HUANG Unavailable [email or web address] Live Flores Unavailable [email or web address] Sybil Bose PA-C Unavailable [email or web address] BLADIMIR Flores, Fransico Unavailable Unavailable [facility] Unavailable Unavailable Alexey Cordova Unavailable Unavailable Akin Flores, P. Unavailable 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) Urinary symptom or sign (788.99) (R39.9) Dementia with behavioral disturbance (294.21) (F03.91) Anxiety (300.00) (F41.9) Back pain (724.5) (M54.9) Neck pain (723.1) (M54.2) Gait disturbance (781.2) (R26.9) Generalized weakness (780.79) (R53.1) Open wound of forearm (881.00) (S51.809A) 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) PAF (paroxysmal atrial fibrillation) (427.31) (I48.0) Hypertension (401.9) (I10) Mitral regurgitation (424.0) (I34.0) Bradycardia (427.89) (R00.1) Anemia (285.9) (D64.9) Dyslipidemia (272.4) (E78.5) Chronic kidney disease, stage 3 (585.3) (N18.3) Axillary pain (729.5) (M79.629) 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) Secondary hyperparathyroidism (588.81) (N25.81) Vitamin D deficiency (268.9) (E55.9) Osteoporosis (733.00) (M81.0) Varicose veins (454.9) (I83.90) Skin lesion (709.9) (L98.9) Drug interaction (995.20) (Z78.9) Premature ventricular contractions (427.69) (I49.3) Carpal tunnel syndrome of right wrist (354.0) (G56.01) Synovitis of wrist (727.05) (M65.9) CTS (carpal tunnel syndrome) (354.0) (G56.00) Benign familial tremor (333.1) (G25.0) Coagulopathy (286.9) (D68.9) 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 Mark Becerra Start: 01-Nov-2010 Refills: 0 predniSONE 20 MG Oral Tablet; TAKE 3 TAB LETS DAILY FOR 3 DAYS, THEN 2 TABLETS DAILY FOR 3 DAYS, THEN 1 TABLET DAILY FOR 3 DAYS. Mark Mims III Start: 27-Jun-2018 Quantity: 18 Refills: 0 LORazepam 0.5 MG Oral Tablet; TAKE 1 TABLET 3 TIMES DA KENZIE NEEDED. ANIA Palencia Start: 19-Jun-2018 Quantity: 30 Refills: 0 Amiodarone HCl - 200 MG Oral Tablet; TAKE 1 TABLET CAROLYN LY. Mark Becerra Quantity: 90 Refills: 3 Simvastatin 10 MG Oral Tablet; take 1 tablet every daksha Mark Pickett Start: 20-Sep-2017 Quantity: 90 Refills: 3 Ferrous Sulfate 325 (65 Fe) MG Oral Tablet; Take 1 tab let daily Mark Mancini Start: 23-Sep-2016 Quantity: 90 Refills: 3 Calcitriol 0.25 MCG Oral Capsule; TAKE 1 CAPSULE EVERY DAY DO Barrie Chiang Start: 12-Feb-2018 Quantity: 90 Refills: 3 PreserVision AREDS 2 Oral Capsule; TAKE DIRECTED. Mark Stanley Quantity: 90 Refills: 3 Tums 500 MG Oral Tablet Chewable; TAKE 2 TABLET Daily Mark Fuller Start: 20-Jun-2018 Quantity: 180 Refills: 3 Procedures X-ray Chest, PA and Lateral Routine Date: 27-May-2018 History of Dilation And Curettage Status : Completed History of Tubal Ligation Status: Comple alanna History of Biopsy Breast Open Status: Co mpleted History of Biopsy Endometrial, Without Cervical Status: Completed Dilation History of Central IV Catheter Basilic S tatus: Completed History of Cataract Surgery Status: Comp leted History of Cataract Surgery Status: Comp leted History of Breast Surgery Mastectomy Sta tus: Completed History of Open Treatment Of Fracture Of Distal Status: Completed Radius History of Exploratory Laparotomy Status : Completed Immunizations Fluzone INJ On: 29-Nov-2011 10:49 Lot #: [id number], [employer] Influenza On: 15-Dec-2012 Pneumococcal polysaccharide vaccine, 23 valent On: 20-Mar-19 14 10:57 Lot #: [id number], [employer] Influenza On: 08-Dec-2013 10:50 Lot #: [id number], [employer] Zoster (Zostavax) On: 2014 Prevnar 13 Intramuscular Suspension On: 31-May-2015 15:53 Lot #: [id number], [employer] Fluzone High-Dose Intramuscular Suspension On: 24-Nov-2015 1 0:14 Lot #: [id number], [employer] Family History Brother Family history of pancreatic cancer (V16.0) (Z80.0) Status: Active Social History - Smoking Status Never smoker Plan of Treatment Planned Encounters Appointment; Case, ANIA Mckeon Start: 19-May-2019 9:00 Re quest Planned Observations Planned Goals not documented Results CBC With DIFF Laboratory: [facility] Laboratory Comments: P T TO DROP OFF [address] [place] [address] [facility] 03-Jun-2018 9:39 WBC 6.05 K/uL Range: 4.8-10.8 K/u L RBC 4.10 {M/uL} (below low Range: 4.2-5 .4 M/uL threshold) HEMOGLOBIN 12.3 g/dL Range: 12.0-16.0 g /dL HEMATOCRIT 38.3 % Range: 37-47 % MCV 93.4 fL Range: 80-100 fL MCH 30.0 pg Range: 25-34 pg MEAN CORPUSCULAR HGB CONC 32.1 Range: 3 2-36 g/dL g/dL RED CELL DISTRIBUTION WIDTH SD Range: 3 6.4-46.3 fL 50.8 fL (above high threshold) RED CELL DISTRIBUTION WIDTH CV Range: 1 1.5-14.5 % 14.9 % (above high threshold) PLATELET COUNT 216 K/uL Range: 130-400 K/uL MEAN PLATELET VOLUME 11.7 fL Range: 7.4 -10.4 fL (above high threshold) NEUT % 62.5 % Range: % LYMPH % 25.6 % Range: % MONO % 10.2 % Range: % EOS % 1.2 % Range: % BASO % 0.3 % Range: % IG% 0.2 % Range: % Comments: IG paramet er reflects the combination of Metas, Myelos andPromyelocytes. Neutrophils (Auto) 3.78 K/uL Range: 1. 4-6.5 K/uL LYMPH ABS # 1.55 K/uL Range: 1.2-3.4 K/ uL MONO ABS # 0.62 K/uL (above Range: 0.11 -0.59 K/uL high threshold) EOS ABS # 0.07 K/uL Range: 0-0.5 K/uL BASO ABS # 0.02 K/uL Range: 0-0.2 K/uL IG# 0.01 K/uL Range: 0.00-0.02 K/ uL Renal Panel Laboratory: [facility] Laboratory Comments: P T TO DROP OFF [address] [place] [address] tel: [facility] 03-Jun-2018 9:39 SODIUM 142 mmol/L Range: 136-145 mmol /L POTASSIUM 4.1 mmol/L Range: 3.5-5.1 mmo l/L CHLORIDE 109 mmol/L (above high Range: 98-107 mmol/L threshold) CARBON DIOXIDE 28 mmol/L Range: 21-32 m mol/L ANION GAP 5.0 Range: 3-11 BLOOD UREA NITROGEN 22 mg/dl Range: 7-1 8 mg/dl (above high threshold) CREATININE 1.61 mg/dl (above Range: 0.6 -1.2 mg/dl high threshold) Estimated GFR ( Comments: Units: ml/min per [place]) 33.9 1.73 meters squaredT he estimated GFR (CKD-E PI equation) has not be en validatedfor inpatie nt settings and may not be an accurate reflectiono f renal function in critical ly ill patients or those wi thrapidly changing renal funct ion (e.g. NEHA). Estimated GFR (Non- Comments: Uni ts: ml/min per [place]) 29.3 1.73 meters squaredT he estimated GFR (CKD-E PI equation) has not be en validatedfor inpatie nt settings and may not be an accurate reflectiono f renal function in critical ly ill patients or those wi thrapidly changing renal funct ion (e.g. NEHA). BUN/CREATININE RATIO 13.7 Range: 10-20 GLUCOSE 91 mg/dl Range: 70-99 mg/dl CALCIUM 9.3 mg/dl Range: 8.5-10.1 mg/ dl PHOSPHORUS 3.2 mg/dl Range: 2.5-4.9 mg/ dl ALBUMIN 3.8 {gm/dl} Range: 3.4-5.0 gm/d l Magnesium Laboratory: [facility] Laboratory Comments: P T TO DROP OFF [address] [place] [facility] [facility] [place] [place] [address] [facility]: [facility] 03-Jun-2018 9:39 MAGNESIUM 2.2 mg/dl Range: 1.8-2.4 mg/d l PTH, Intact Laboratory: [facility] Laboratory Comments: P T TO DROP OFF [address] [place] [facility] [facility] [place] [place] [address] [facility]: [facility] 03-Jun-2018 9:39 PARATHYROID HORMONE INTACT Range: 18. 4-80.1 pg/ml 167.8 pg/ml (above high threshold) Vitamin D, 25-Hydroxy Laboratory: [facility] Laboratory Comments: PT TO DROP OFF [address] [place] [facility] [place] [address] [facility] 03-Jun-2018 9:39 VITAMIN D, 25 HYDROXY 24.3 Range: 30-10 0 ng/ml ng/ml (below low threshold) Comments: De ficient: <20 ng/mLInsufficient: 20-30 ng/mLSufficient: 30-100 ng/mL Urine rflx Micros+Cult if Laboratory: [facility] Laboratory Ind [address] [place] [address] tel: 03-Jun-2018 12:39 Urine Color Yellow Urine Appearance Clear Range: Clear Urine Specific Blair 1.023 Range: 1.0 00-1.030 Urine Ph 5.5 Range: 4.5-7.5 Urine Protein(Dipstick) Range: Negative Negative Urine Glucose(Dipstick) Range: Negative Negative Urine Ketones Trace (Abnormal) Range: N egative Urine Bilirubin Negative Range: Negativ e URINE BLOOD HGB Negative Range: Negativ e Urobilinogen Negative Range: Negative Nitrite Urine Negative Range: Negative Urine Leukocyte Esterase Range: Negativ e Negative Urine Culture 03-Jun-2018 12:39 URINE CULTURE CATH ORDERED PROCEDURE : Urine Culture; Speciment : Urine,Clean Catch Source of Specimen: Clean Catch Urine Culture : Three types of organisms present, all low counts probableUrine Culture : skin gail. No further identifications or sensitivities toUrine Culture : follow. X-Ray Chest 1 View Laboratory: [facility] Diagnostic Portable (Pending) Imaging [address] [facility] 09-Jun-2018 17:55 X-Ray Chest 1 VW Portable (CXR1P) [place], [place] [phone] XRay Report Patient: MCKENNA MORA Admit Date: 06/09/18 MR#: [id number] Address1: [address] [facility] Acct ID:[id number] Address2: Date: 1935 [facility] Zip: [place] [address] Age: 82 Location: ED Sex: F Room/Bed: Att Phy: Diagnosis: CONTUSION, DELIRIOUS, C ONFUSION Livier Phy: Narayan Francis MD Service D ate: 06/09/18 Fam Phy: Interpreting Phy: Yohan Fabian Admit Phy: Ordering Phy: Coy Hill DO cc: SINGLE VIEW CHEST CLINICAL HISTORY: Generalized weakness. FINDINGS: An AP, portable, upright chest radiograph is compared to study dated 05/23/2018. The examination is degraded by portable technique and patient rotation. The heart is enlarged and thereis atherosclerotic calcification of the thoracic aorta. The pulmonary vasculature is noncongested. Chronic interstitial thickening is similar to previous. No airspace consolidation or large pleural effusion is identified. No pneumothorax is seen. The skeletal structures are osteopenic. The bony thorax is grossly intact. Degenerative change and scoliosis are noted in the thoracic spine. Surgical clips are noted in the left axilla. IMPRESSION: Cardiomegaly with no acute cardiopulmonary abnormality. Electronically signed by: Yohan Eckert M.D. 06/09/2018 5:56 PM Dictated: 06/09/181754 Transcribed: 06/09/181754 CT Head w/o Contrast Laboratory: [facility] Diagnostic (Pending) Imaging [address] [facility] 09-Jun-2018 18:50 CT HEAD WITHOUT CONTRAST [facility], [place] [phone] CT Scan Report Patient: MCKENNA MORA Admit Date: 06/09/18 MR#: [id number] Address1: [address] [facility] Acct ID:[id number] Address2: Date: 1935 [facility] Zip: [place] [address] Age: 82 Location: ED Sex: F Room/Bed: Att Phy: Diagnosis: CONTUSION, DELIRIOUS, C ONFUSION Livier Phy: Narayan Francis MD Service D ate: 06/09/18 Fam Phy: Interpreting Phy: Yohan Fabian Admit Phy: Ordering Phy: Coy Hill DO cc: CT SCAN OF THE BRAIN WITHOUT IV CONTRAST CLINICAL HISTORY: Change in mental status. COMPARISON STUDY: CT of the brain dated 05/23/2018. TECHNIQUE: Unenhanced axial CT scan of the brain is performed from the vertex to the skull base. A dose lowering technique was utilized adhering to the principles of ALARA. CT DOSE: 537.48 mGy.cm FINDINGS: Brain parenchyma: There are age-related involutional changes noting mild subcortical and periventricular microangiopathic change. There is no hemorrhage, mass effect, or evidence of acute territorial ischemia by CT criteria. Benson-white matter differentiation is preserved. No extra-axial fluid collection is seen. Ventricles, sulci, cisterns: Prominent secondary to involutional change. Intracranial vasculature: There is atherosclerotic calcification of the cavernous carotid and vertebral arteries. Calvarium: Unremarkable. Sinuses and mastoids: The visualized paranasal sinuses are clear. There is a small right mastoid effusion. The left mastoid air cells are well pneumatized. Orbits: The bony orbits are grossly intact. There are bilateral ocular lens implants. IMPRESSION: There is no hemorrhage, mass effect, or evidence of acute territorial ischemia by CT criteria. Electronically signed by: Yohan Eckert M.D. 06/09/2018 6:52 PM Dictated: 06/09/181849 Transcribed: 06/09/181849 Ammonia (Pending) Laboratory: [facility] Laboratory [address] [place] [address] tel: 09-Jun-2018 22:30 AMMONIA < 10.0 umol/L (below Range: 11- 32 umol/L low threshold) Comp Metabolic Panel Laboratory: [facility] Laboratory (Pending) [address]. [facility] [address] tel: 09-Jun-2018 18:13 SODIUM 142 mmol/L Range: 136-145 mmol /L POTASSIUM 3.5 mmol/L Range: 3.5-5.1 mmo l/L CHLORIDE 109 mmol/L (above high Range: 98-107 mmol/L threshold) CARBON DIOXIDE 28 mmol/L Range: 21-32 m mol/L ANION GAP 5.0 Range: 3-11 BLOOD UREA NITROGEN 21 mg/dl Range: 7-1 8 mg/dl (above high threshold) CREATININE 1.55 mg/dl (above Range: 0.6 -1.2 mg/dl high threshold) Estimated GFR ( Comments: Units: ml/min per [place]) 35.5 1.73 meters squaredT he estimated GFR (CKD-E PI equation) has not be en validatedfor inpatie nt settings and may not be an accurate reflectiono f renal function in critical ly ill patients or those wi thrapidly changing renal funct ion (e.g. NEHA). Estimated GFR (Non- Comments: Uni ts: ml/min per [place]) 30.6 1.73 meters squaredT he estimated GFR (CKD-E PI equation) has not be en validatedfor inpatie nt settings and may not be an accurate reflectiono f renal function in critical ly ill patients or those wi thrapidly changing renal funct ion (e.g. NEHA). BUN/CREATININE RATIO 13.3 Range: 10-20 GLUCOSE 90 mg/dl Range: 70-99 mg/dl CALCIUM 8.8 mg/dl Range: 8.5-10.1 mg/ dl Bilirubin, Total 0.5 mg/dl Range: 0.2-1 mg/dl AST/SGOT 28 U/L Range: 15-37 U/L ALT/SGPT 29 U/L Range: 12-78 U/L TOTAL PROTEIN 6.8 {gm/dl} Range: 6.4-8. 2 gm/dl ALBUMIN 3.7 {gm/dl} Range: 3.4-5.0 gm/d l GLOBULIN 3.1 {gm/dl} Range: 2.5-4.0 gm/ dl ALB/GLOB RATIO 1.2 Range: 0.9-2 ALKALINE PHOSPHATASE 47 U/L Range: 45-1 17 U/L Phosphorus (Pending) Laboratory: [facility] Laboratory [address] [place] [address] tel: 09-Jun-2018 18:13 PHOSPHORUS 2.8 mg/dl Range: 2.5-4.9 mg/ dl Magnesium (Pending) Laboratory: [facility] Laboratory [address] [address] tel: 09-Jun-2018 18:13 MAGNESIUM 2.2 mg/dl Range: 1.8-2.4 mg/d l Creatine Phosphokinase - Laboratory: [facility] Laboratory CK (Pending) [address] [address] tel: 09-Jun-2018 18:13 CREATINE PHOSPHOKINASE 134 U/L Range: 2 6-192 U/L Troponin I (Pending) Laboratory: [facility] Laboratory [address] [place] [address] tel: 09-Jun-2018 18:13 TROPONIN (cTnI) < 0.015 ng/ml Range: 0- 0.045 ng/ml TSH With Reflex to T4 Laboratory: [facility] Laboratory (Pending) [address] [place] [address] tel: 09-Jun-2018 18:13 TSH 1.260 {uIu/ml} Range: 0.300-4.500 uIu/ml Comments: The refere nce range for TSH is 0.3-4.5 uIU/ml.Some have suggested that TSH levels >2.5 uIU/ml should beconsidered abnormal, particularly in potentially symptomaticyounger individuals.TSH levels in he althy elderly (>75 y ears of age) are oftenat or even above the reference range.Normal first trimester TSH <2.0 uIU/ml.Normal second and third trimester TSH <3.0 uIU/ml.TSH 0.5-2.0 uIU/ml is oft en considered the op timaltherapeutic target for replacement treatment ofhypothyroidism. RPR - Rapid Plasma Tk Laboratory: [facility]Pending) [address] [facility] [address] tel: 09-Jun-2018 18:13 RAPID PLASMA REAGIN Nonreactive Range: Nonreactive CBC With DIFF (Pending) Laboratory: [facility] Laboratory [address] [facility] [address] tel: 10-Jun-2018 6:34 WBC 6.57 K/uL Range: 4.8-10.8 K/u L RBC 4.34 {M/uL} Range: 4.2-5.4 M/uL HEMOGLOBIN 13.1 g/dL Range: 12.0-16.0 g /dL HEMATOCRIT 40.2 % Range: 37-47 % MCV 92.6 fL Range: 80-100 fL MCH 30.2 pg Range: 25-34 pg MEAN CORPUSCULAR HGB CONC 32.6 Range: 3 2-36 g/dL g/dL RED CELL DISTRIBUTION WIDTH SD Range: 3 6.4-46.3 fL 50.7 fL (above high threshold) RED CELL DISTRIBUTION WIDTH CV Range: 1 1.5-14.5 % 14.8 % (above high threshold) PLATELET COUNT 196 K/uL Range: 130-400 K/uL MEAN PLATELET VOLUME 11.2 fL Range: 7.4 -10.4 fL (above high threshold) NEUT % 64.7 % Range: % LYMPH % 25.0 % Range: % MONO % 9.0 % Range: % EOS % 0.9 % Range: % BASO % 0.2 % Range: % IG% 0.2 % Range: % Comments: IG paramet er reflects the combination of Metas, Myelos andPromyelocytes. Neutrophils (Auto) 4.26 K/uL Range: 1. 4-6.5 K/uL LYMPH ABS # 1.64 K/uL Range: 1.2-3.4 K/ uL MONO ABS # 0.59 K/uL Range: 0.11-0.59 K /uL EOS ABS # 0.06 K/uL Range: 0-0.5 K/uL BASO ABS # 0.01 K/uL Range: 0-0.2 K/uL IG# 0.01 K/uL Range: 0.00-0.02 K/ uL Basic Metabolic Panel Laboratory: [facility] Laboratory (Pending) [place] [address] tel: 10-Jun-2018 6:34 SODIUM 141 mmol/L Range: 136-145 mmol /L POTASSIUM 3.5 mmol/L Range: 3.5-5.1 mmo l/L CHLORIDE 108 mmol/L (above high Range: 98-107 mmol/L threshold) CARBON DIOXIDE 27 mmol/L Range: 21-32 m mol/L ANION GAP 6.0 Range: 3-11 BLOOD UREA NITROGEN 18 mg/dl Range: 7-1 8 mg/dl CREATININE 1.41 mg/dl (above Range: 0.6 -1.2 mg/dl high threshold) Estimated Creatinine Clearance Range: m l/min 25.0 ml/min Comments: Est. Creat inine Clearance (Mod Cockcroft-Gault) for pharmacydosing purposes. Estimated GFR ( Comments: Units: ml/min per [place]) 39.8 1.73 meters squaredT he estimated GFR (CKD-E PI equation) has not be en validatedfor inpatie nt settings and may not be an accurate reflectiono f renal function in critical ly ill patients or those wi thrapidly changing renal funct ion (e.g. NEHA). Estimated GFR (Non- Comments: Uni ts: ml/min per [place]) 34.4 1.73 meters squaredT he estimated GFR (CKD-E PI equation) has not be en validatedfor inpatie nt settings and may not be an accurate reflectiono f renal function in critical ly ill patients or those wi thrapidly changing renal funct ion (e.g. NEHA). BUN/CREATININE RATIO 12.6 Range: 10-20 GLUCOSE 93 mg/dl Range: 70-99 mg/dl CALCIUM 8.9 mg/dl Range: 8.5-10.1 mg/ dl Urine Culture (Pending) 09-Jun-2018 18:00 URINE CULTURE CATH ORDERED PROCEDURE : Urine Culture; Speciment : Urine,Clean Catch Urine Culture : Three types of organisms present, all moderate counts.Urine Culture : Repeat collection recommended. No further identificationsUrine Culture : or sensitivities to follow. Ceruloplasmin (Pending) Laboratory: [facility], Comm ents: [facility] [employer] NUMBER: [id number] 10-Jun-2018 6:34 Ceruloplasmin 28 {MG/DL} Range: 18-53 M G/DL Comments: THIS TEST WAS PERFORMED AT:[facility] [address] [place] [address] [address] Cervical Spine w/o Laboratory: [facility] Diagnostic Contrast (Pending) Imaging [address] [facility] 21-Jun-2018 6:05 CT CERVICAL SPINE W/O IV CONT [place], [place] [phone] CT Scan Report Patient: MCKENNA MORA Admit Date: 06/20/18 MR#: [id number] Address1: [facility] Acct ID:[id number] Address2: [address] [place] [address] Date: 1935 [facility] Zip: [place] [address] Age: 82 Location: ED Sex: F Room/Bed: Att Phy: Diagnosis: FALL Livier Phy: Narayan Francis MD Service D ate: 06/20/18 Fam Phy: Narayan Francis MD Interpret ing Phy: Raul Carvajal MD Admit Phy: Ordering Phy: Victoriano Lima M.D. cc: CT OF THE CERVICAL SPINE CLINICAL HISTORY: Neck pain status post trauma COMPARISON STUDY: No previous studies for comparison. CT DOSE: 984.11 mGy.cm TECHNIQUE: CT scan of the cervical spine was performed from the skull base to the thoracic inlet. Images are reviewed in the axial, sagittal, and coronal planes. IV contrast was not administered forthis examination. A dose lowering technique was utilized adhering to the principles of ALARA. FINDINGS: The visualized portions of the lung apices reveal no evidence of pneumothorax. The prevertebral soft tissues are normal. No fractures are visualized. There is prominent C1-2 rotation. Clinical correlation be necessary to differentiate a rotatory subluxation from physiologichead tilt and rotation. There are multilevel degenerative changes IMPRESSION: 1. Multilevel degenerative change 2. No acute fractures 3. Prominent C1-2 rotation. Clinical correlation will be necessary to differentiate a rotatory subluxation from physiologic rotation from head positioning. Electronically signed by: Raul Carvajal M.D. 06/21/2018 6:09 AM Dictated: 06/21/18604 Transcribed: 06/21/18604 CT Head w/o Contrast Laboratory: [facility] Diagnostic (Pending) Imaging 1800 [facility] [place] 21-Jun-2018 6:09 CT HEAD WITHOUT CONTRAST [facility], [place] [phone] CT Scan Report Patient: MCKENNA MORA Admit Date: 06/20/18 MR#: [id number] Address1: [facility] Acct ID:[id number] Address2: [address] [place] [address] Date: 1935 [facility] [address] Age: 82 Location: ED Sex: F Room/Bed: Att Phy: Diagnosis: FALL Livier Phy: Narayan Francis MD Service D ate: 06/20/18 Fam Phy: Narayan Francis MD Interpret ing Phy: Raul Carvajal MD Admit Phy: Ordering Phy: Victoriano Lima M.D. cc: CT head/brain wo con CLINICAL HISTORY: Head pain status post trauma COMPARISON STUDY: 06/09/2018 TECHNIQUE: Axial CT of the brain is performed from the vertex to the skull base. IV contrast was not administered for this examination. A dose lowering technique was utilized adhering to the principles of ALARA. CT DOSE: FINDINGS: No intra or extra-axial mass lesions are visualized. There is no CT evidence of acute cortical infarction. There is no evidence of midline shift. There is no acute hemorrhage. No calvarial fractures are visualized. There are patchy white matter hypodensities likely on a small vessel basis. There is persistent ventricular dilatation, finding likely secondary to volume loss. There is no acute sinusitis. There is a scalp contusion at the vertex. IMPRESSION: 1. Scalp contusion 2. No acute intracranial findings. Electronically signed by: Raul Carvajal M.D. 06/21/2018 6:10 AM Dictated: 06/21/18608 Transcribed: 06/21/18608 X-Ray Lumbar Spine 2 Or 3 Laboratory: [facility] Diagnostic View (Pending) Imaging 1800 [facility] [place] 21-Jun-2018 6:11 X-Ray Lumbar Spine 2 or 3 Vws ([id number]) [facility], [place] [phone] XRay Report Patient: MCKENNA MORA Admit Date: 06/20/18 MR#: [id number] Address1: [facility] Acct ID:[id number] Address2: [address] [place] [address] Date: 1935 [facility] Zip: [place] [address] Age: 82 Location: ED Sex: F Room/Bed: Att Phy: Diagnosis: FALL Livier Phy: Narayan Francis MD Service D ate: 06/20/18 Fam Phy: Narayan Francis MD Interpret ing Phy: Raul Carvajal MD Admit Phy: Ordering Phy: Victoriano Lima M.D. cc: XR lumbar spine 2-3V CLINICAL HISTORY: Back pain status post trauma COMPARISON STUDY: CT scan dated July 2015 FINDINGS: The bones appear osteopenic. There are multilevel degenerative changes with disc space narrowing most pronounced the L2-3, L4-5, and L5-S1 levels. No acute fractures or traumatic subluxations are visualized. There is an age-indeterminate sacral fracture. IMPRESSION: 1. Multilevel degenerative change 2. No acute fractures or subluxations within the lumbar spine 3. Age-indeterminate sacral fracture which was not visualized on a July [address] scan Electronically signed by: Raul Carvajal M.D. 06/21/2018 6:15 AM Dictated: 06/21/18 0611 Transcribed: 06/21/18 0611 X-ray Pelvis 1 or 2 view Laboratory: [facility] Diagnostic Routine (Pending) Imaging [address] [facility] 21-Jun-2018 6:15 PELVIS 1 OR 2 VIEW ROUTINE [facility], [place] [phone] XRay Report Patient: MCKENNA MORA Admit Date: 06/20/18 MR#: [id number] Address1: [facility] Acct ID:[id number] Address2: [address] [place] [address] Date: 1935 [facility] Zip: [place] [address] Age: 82 Location: ED Sex: F Room/Bed: Att Phy: Diagnosis: FALL Livier Phy: Narayan Francis MD Service D ate: 06/20/18 Jeremy Phroseann: Narayan Francis MD Interpret ing Phy: Raul Carvajal MD Admit Phy: Ordering Phy: Victoriano Lima M.D. cc: XR pelvis 1-2V routine CLINICAL HISTORY: Pelvic pain status post trauma COMPARISON: None. DISCUSSION: No hip fractures are visualized. There is no SI joint diastases. There is no symphysis diastases. Degenerative changes are present within the lower lumbar spine. IMPRESSION: No fractures identified. Electronically signed by: Raul Carvajal M.D. 06/21/2018 6:16 AM Dictated: 06/21/18614 Transcribed: 06/21/18614 MRI Cervical w/o Contrast Laboratory: [facility] Diagnostic (Pending) Imaging 1800 [facility] 21-Jun-2018 8:00 MRI CERVICAL SPINE W/O CONTRST [facility], [place] [phone] Magnetic Resonance Report Patient: MCKENNA MORA Admit Date: 06/20/18 MR#: [id number] Address1: [facility] Acct ID:[id number] Address2: [address] [place] [address] Date: 1935 [facility] Zip: [place] [address] Age: 82 Location: ED Sex: F Room/Bed: Att Phy: Diagnosis: FALL Livier Phy: Narayan Francis MD Service D ate: 06/21/18 Jeremy Phy: Narayan Francis MD Interpret ing Phy: Raul Carvajal MD Admit Phy: Ordering Phy: Victoriano Lima M.D. cc: MR cervical spine wo con CLINICAL HISTORY: Possible C1-2 rotatory subluxation TECHNIQUE: Sagittal and axial T1, T2 and STIR images were obtained. COMPARISON STUDY: CT scan dated 06/20/2018 There are no suspicious areas of marrow replacement. No intrinsic cervical cord lesions are visualized. C2-3: There is no evidence of disc bulge or focal herniation. There is no spinal or foraminal stenosis. C3-4: There is no evidence of disc bulge or focal herniation. There is no spinal or foraminal stenosis. C4-5: There is a mild circumferential disc bulge. There is minimal retrolisthesis C4 on C5. There is moderate spinal stenosis. C5-6 :There is a circumferential disc bulge. There is moderate spinal stenosis. There is mild foraminal narrowing C6-7: There is a cervical disc bulge. There is moderate spinal stenosis. There is mild foraminal narrowing C7-T1: There is no evidence of disc bulge or focal herniation. There is no evidence of spinal or foraminal stenosis. The C1-2 relationship appears normal. The findings in the prior CT scan were likely secondary to head rotation and tilt. There is no evidence of an epidural hematoma. The study is somewhat compromised due to motion artifact. IMPRESSION: 1. No evidence of C1-2 rotatory subluxation. The findings in the prior study are felt to be secondary to head tilt and rotation 2. Multilevel spondylitic changes with multilevel spinal stenosis 3. No evidence of pathologic marrow edema to indicate occult fracture. 4. No evidence of epidural hematoma Electronically signed by: Raul Carvajal M.D. 06/21/2018 8:12 AM Dictated: 06/21/18 0800 Transcribed: 06/21/[address] Lumbar Spine w/o IV Laboratory: [facility] Diagnostic Contrast (Pending) Imaging [address] [facility] 23-Jun-2018 6:26 CT LUMBAR SPINE WO IV CONTRST [place], [place] [phone] CT Scan Report Patient: MCKENNA MORA Admit Date: 06/22/18 MR#: [id number] Address1: [address] [place] [address] Acct ID:[id number] Address2: Date: 1935 [facility] Zip: [place] [address] Age: 82 Location: ED Sex: F Room/Bed: Att Phy: Diagnosis: BACK PAIN Livier Phy: Narayan Francis MD Service D ate: 06/22/18 Fam Phy: Interpreting Phy: Gary Sanchez MD Admit Phy: Ordering Phy: Steff King M.D. cc: CT lumbar spine wo con CT DOSE: 570.78 mGy.cm HISTORY: Pain. Trauma. lumbar pain, fall 2 days ago TECHNIQUE: Multiaxial CT images of the lumbar spine were performed and reformatted in the sagittal and coronal plane without the use of contrast. A dose lowering technique was utilized adhering to the principles of ALARA. COMPARISON: None. FINDINGS: Considerable degenerative disc changes the lumbar spine. This is most prominent at L5-S1. No evidence for compression deformity. Concave deformity of several vertebral endplates felt to be secondary to Schmorl's nodes. Posterior bulging discs and moderate osteophytic changes throughout. IMPRESSION: 1. Degenerative change throughout the entire lumbar region. 2. This is most significant at L5-S1. 3. No acute bony abnormality. The above report was generated using voice recognition software. It may contain grammatical, syntax or spelling errors. Electronically signed by: Gary Sanchez M.D. 06/23/2018 6:28 AM Dictated: 06/23/18625 Transcribed: 06/23/18625 Encounters Appointment; Promise Rosenberg DO 13-May-2018 14:40 Encounter Diagnosis: Problem not documented Appointment; Alix Enriquez PA-C 01-May-2018 8:30 Encounter Diagnosis: Problem not documented Appointment; Alix Enriquez PA-C 24-Apr-2018 15:00 Encounter Diagnosis: Problem not documented Appointment; Simon Chacon CRNP 28-Mar-2018 16:20 Encounter Diagnosis: Problem not documented Appointment; Live Becerra M.D. 12-Mar-2018 10:15 Encounter Diagnosis: Problem not documented Appointment; Alix Enriquez PA-C 11-Mar-2018 13:30 Encounter Diagnosis: Problem not documented Appointment; Promise Rosenberg DO 07-Jan-2018 9:00 Encounter Diagnosis: Problem not documented Appointment; Annalise, 06-Jan-2018 13:00 Encounter Diagnosis: Problem not documented Appointment; Barrie Cruz DO 10-Dec-2017 11:15 Encounter Diagnosis: Problem not documented Appointment; Alix Enriquez PA-C 29-Nov-2017 13:15 Encounter Diagnosis: Problem not documented Appointment; Narayan Francsi M.D. 28-Aug-2017 8:10 Encounter Diagnosis: Problem not documented Appointment; Rene Elizalde M.D. 21-Aug-2017 11:45 Encounter Diagnosis: Problem not documented Appointment; Live Becerra M.D. 21-Aug-2017 10:45 Encounter Diagnosis: Problem not documented Appointment; Barrie Cruz DO 06-Aug-2017 10:45 Encounter Diagnosis: Problem not documented Appointment; Promise Rosenberg DO 15-Jul-2017 9:20 Encounter Diagnosis: Problem not documented Appointment; [place] [id number], [facility] 19-Jun-2017 15:30 Encounter Diagnosis: Problem not documented Appointment; Dick Muhammad PA-C 10-May-2017 10:00 Encounter Diagnosis: Problem not documented Appointment; Alix Enriquez PA-C 09-Apr-2017 9:00 Encounter Diagnosis: Problem not documented Appointment; Live Becerra M.D. 11-Feb-2017 15:30 Encounter Diagnosis: Problem not documented Appointment; Jaky Palencia PA-C 05-Feb-2017 14:30 Encounter Diagnosis: Problem not documented Appointment; Barrie Cruz DO 29-Jan-2017 12:30 Encounter Diagnosis: Problem not documented Appointment; Promise Rosenberg DO 08-Jan-2017 9:20 Encounter Diagnosis: Problem not documented Appointment; Alix Enriquez PA-C 14-Dec-2016 9:00 Encounter Diagnosis: Problem not documented Appointment; Alix Enriquez PA-C 10-Dec-2016 9:30 Encounter Diagnosis: Problem not documented Appointment; Narayan Francis M.D. 29-Oct-2016 13:50 Encounter Diagnosis: Problem not documented Appointment; Barrie Cruz DO 16-Oct-2016 10:45 Encounter Diagnosis: Problem not documented Appointment; Katerina Mendez M.D. 16-Oct-2016 10:00 Encounter Diagnosis: Problem not documented Appointment; lAix Enriquez PA-C 02-Oct-2016 13:00 Encounter Diagnosis: Problem not documented Appointment; Noelle Mancini M.D. 21-Sep-2016 15:30 Encounter Diagnosis: Problem not documented Appointment; Promise Rosenberg DO 11-Sep-2016 9:00 Encounter Diagnosis: Problem not documented Appointment; Rene Elizalde M.D. 22-Aug-2016 11:45 Encounter Diagnosis: Problem not documented Appointment; Pulmonary, Funct Testing 22-Aug-2016 10:30 Encounter Diagnosis: Problem not documented Appointment; Promise Rosenberg DO 02-Aug-2016 13:00 Encounter Diagnosis: Problem not documented Appointment; Alix Enriquez PA-C 26-Jul-2016 14:00 Encounter Diagnosis: Problem not documented Appointment; Alix Enriquez PA-C 19-Jul-2016 9:00 Encounter Diagnosis: Problem not documented Appointment; Katerina Mendez M.D. 17-Jul-2016 9:40 Encounter Diagnosis: Problem not documented Appointment; Barrie Cruz DO 06-Jul-2016 12:30 Encounter Diagnosis: Problem not documented Appointment; Live Becerra M.D. 06-Jul-2016 11:00 Encounter Diagnosis: Problem not documented Appointment; Linda Bose PA-C 19-May-2019 9:00 Encounter Diagnosis: Problem not documented
== END 2018-06-30 12:37 | disposition home health service (06) | DRG 57 ==
LOC: ED 13:54 → 3S 06-27 18:33 → UNDODISIN 06-30 11:47

== ENCOUNTER 2018-07-18 12:55 | Inpatient (IN) ==
--- NOTE | 2018-07-18 13:39 | XRay Report ---
XR chest 1V portable CLINICAL HISTORY: Acute change in mental status COMPARISON STUDY: 06/26/2018 FINDINGS: The heart is the upper limits of normal in size. There is no lobar consolidation. There are no pleural effusions. There is slight elevation of the interstitium in an element of mild pulmonary vascular congestion cannot be excluded. There are surgical clips in the left axillary region.[ IMPRESSION: 1. Subtle interstitial prominence. An element of mild pulmonary vascular congestion cannot be exclude d 2. No evidence of focal pulmonary consolidation Electronically signed by: Raul Carvajal M.D. 07/18/2018 1:37 PM
[2018-07-18 13:52] LABS: Basophils # (auto) 0.01 K/uL (0-0.2); Basophils % (auto) 0.1 %; Eosinophils # (auto) 0.06 K/uL (0-0.5); Eosinophils % (auto) 0.6 %; Hematocrit (blood only) 36.3 % (37-47); Hemoglobin 13.1 g/dL (12.0-16.0); Immature Granulocytes # (auto) 0.04 K/uL (0.00-0.02); Immature Granulocytes % (auto) 0.4 %; Lymphocytes # (auto) 1.38 K/uL (1.2-3.4); Lymphocytes % (auto) 13.1 %; Mean Corpuscular Hgb Conc 36.1 g/dL (32-36); Mean Corpuscular Volume 86.6 fL (80-100); Mean Platelet Volume 11.1 fL (7.4-10.4); Monocytes # (auto) 0.82 K/uL (0.11-0.59); Monocytes % (auto) 7.8 %; Neutrophils # (auto) 8.26 K/uL (1.4-6.5); Platelet Count 265 K/uL (130-400); RDW Coefficient of Variation 14.6 % (11.5-14.5); Red Blood Count 4.19 M/uL (4.2-5.4); White Blood Count 10.57 K/uL (4.8-10.8)
[2018-07-18] MEDS: SODIUM CHLORIDE 0.9% 1000ML 1,000 ML IV SCH ×2 (13:55→18:36)
[2018-07-18 14:02] LABS: INR 1.3 (0.9-1.1); Partial Thromboplastin Ratio 1.3; Prothrombin Time 12.9 Seconds (9.0-12.0)
[2018-07-18 14:11] LABS: Albumin Level 3.2 gm/dl (3.4-5.0); BUN Creatinine Ratio 19.8 (10-20); Bilirubin Direct 0.4 mg/dl (0-0.2); Calcium 8.9 mg/dl (8.5-10.1); Creatinine Clr Calc Pharmacy 13.9 ml/min; Est GFR (African American) 19.8; Est GFR (Non-African American) 17.1; Potassium 2.6 mmol/L (3.5-5.1)
[2018-07-18 14:16] LABS: Bilirubin,Total 1.1 mg/dl (0.2-1); Total Protein 6.9 gm/dl (6.4-8.2); Troponin I 0.045 ng/ml (0-0.045)
--- NOTE | 2018-07-18 14:54 | CT Scan Report ---
CT head/brain wo con CT DOSE: 537.48 mGy.cm HISTORY: Mental status change ams TECHNIQUE: Multiaxial CT images of the head were performed without the use of intravenous contrast. A dose lowering technique was utilized adhering to the principles of ALARA. Comparison: 06/20/2018 Findings: The paranasal sinuses and mastoid air cells are clear. The calvarium and skull base are int act. The ventricles and sulci are within normal limits. There is no mass, hematoma, midline shift, or acute infarct. Age-related atrophy and chronic small vessel change are noted. Impression: No acute intracranial abnormality. Age-related atrophy and chronic small vessel change. The above report was generated using voice recognition software. It may contain grammatical, syntax or spelling errors. Electronically signed by: Gary Sanchez M.D. 07/18/2018 2:52 PM
[2018-07-18 15:12] LABS: Magnesium 1.7 mg/dl (1.8-2.4)
[2018-07-18] MEDS ORDERED: MAGNESIUM SULFATE / D5W 1 GM/100 ML BAG IV ONE (15:24)
[2018-07-18] MEDS ORDERED: POTASSIUM CHLORIDE 10 MEQ TABCR PO STA (15:25)
--- NOTE | 2018-07-18 16:38 | History & Physical Report ---
Date of Service July 18, 2018 Assessment & Plan (1) Acute renal failure: Cr up to 2.5 will give IV fluids, likely from poor intake but patient is not a good historian follow UO, may need will if patient not cooperative (2) Hypokalemia: K low at 2.5 replacement PO given in the ED will add K to fluids and repeat in the morning (3) Dementia: continue supportive care resides [facility] (4) CKD (chronic kidney disease): Cr typically ranges 1.5-1.7 which is stage III keep close eye on urine output (5) Atrial fibrillation: chronic takes Pradaxa, but with renal impairment and GFR < 15, will change to Eliquis 2.5 BID resume Pradaxa when renal function improves History of Present Illness Chief Complaint: I just want to go home [facility] 82 [facility] with [facility] with psychotic features, presents to the ED with altered mental status, dehydration. She was brought by her daughter but her daughter left the bedside prior to me seeing the patient. Attempted to get history from the patient but her answers were not accurate. Most of her recent history was obtained from the record, specifically from an inpatient psychiatric stay from 06/28 to 06/30. The patient has been hospitalized several times the past few months and has been to the ED numerous times. She has baseline dementia. She had a full work up for her dementia in early June 2018 with neurology consult. She had MRI brain, testing for RPR, ceruloplasm, BMP, CBC. Dr. 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 Treated with Namenda. She was eventually sent to [facility] assisted living because she was too weak to live alone and family could not provide care. She ended up straying from [facility], falling while walking along the road outside of the facility. She did not suffer any serious injuries. She returned to [facility], she became increasingly depressed. She was not eating, she was having delusional thoughts and hallucinating. She began to have thoughts of harming herself and she even stated that she was planning on jumping in from of a train. When she was discharged from inpatient psych unit on 06/30 she was eating better, denying thoughts of selft harm. She went to [facility]. She presents today with increased confusion, weakness. On lab work her Cr is up to 2.5, baseline is 1.5-1.7. Potassium low at 2.5. Could not determine if she had been eating or drinking. She did say that all the people at her home do is yell at her for not eating. Allergies Allergy/AdvReac Type Severity Reaction Status Date / Time Penicillins Allergy Mild Rash Verified 06/27/18 03:57 risedronate sodium AdvReac Mild Nausea Verified 06/27/18 03:57 Home Medications Home Medications Medication Instructions Recorded Confirmed Type amiodarone 200 mg PO PM 04/03/18 07/18/18 History calcium carbonate [Calci-Chew] 1,000 mg PO QAM 04/03/18 07/18/18 History ferrous sulfate [iron] 325 mg PO QAM 04/03/18 07/18/18 History Pradaxa 75 mg PO BID 30 Days #60 cap 06/18/18 07/18/18 Rx PreserVision AREDS-2 1 tab PO BIDM 06/20/18 07/18/18 History acetaminophen [Acetaminophen Extra 1,000 mg PO Q8H PRN 06/26/18 07/18/18 History Strength] Past Med/Surg History Social History Preferred Language: British Communication Ability: Effective Beliefs That Will Affect Care: None Current Living Situation: Assisted current occupational status: retired Feels Safe at Home: Yes Smoking Status: Never smoker Hx Alcohol Use: No Hx Substance Use: No Review of Systems Review of Systems: Unobtainable due to cognitive status Physical Exam Constitutional: WD/WN, vitals as above + acute distress (mild, she is anxious and tearful) and + altered mental status Eyes: PERRL, conjunctivae normal, anicteric sclerae ENMT: external ear and nose normal, oropharynx normal Neck: trachea midline, no thyromegaly Respiratory: normal respiratory effort, lungs clear to auscultation Cardiovascular: RRR, no murmur, no edema Gastrointestinal (Abdomen): normal bowel sounds, soft, nontender, no hepatosplenomegaly Musculoskeletal: no cyanosis or clubbing, extremities motor strength 5/5 Skin: no rashes, warm and dry Neurologic: patellar DTR's 2+ bilat, sensation intact and PERRL, EOMI, accommodation nl, no face palsy, no dysarthria Psychiatric: Orientation: alert, oriented to person and + guarded; + not oriented to place and + not oriented to time Eye Contact: + fair eye contact Speech: + pressured speech Affect: + depressed affect and + tearful affect Mood: + depressed mood Lymphatic: no cervical or axillary lymphadenopathy Results & Data Vital Signs (Past 12 Hours) Vital Signs Temp Pulse Pulse Resp BP BP Pulse Ox 07/18/18 16:00 108 H 18 153/80 H 94 07/18/18 15:02 90 14 130/85 99 07/18/18 13:55 96 H 22 126/91 100 07/18/18 13:06 95 07/18/18 13:02 36.4 C L 98 H 20 125/89 99 Laboratory Results Laboratory Results - last 24 hr 07/18/18 07/18/18 07/18/18 13:42 13:42 13:42 WBC 10.57 RBC 4.19 L Hgb 13.1 Hct 36.3 L MCV 86.6 MCH 31.3 MCHC 36.1 H RDW Std Deviation 46.0 RDW Coeff of Griselda 14.6 H Plt Count 265 MPV 11.1 H Immature Gran % (Auto) 0.4 Neut % (Auto) 78.0 Lymph % (Auto) 13.1 O'Brien % (Auto) 7.8 Eos % (Auto) 0.6 Baso % (Auto) 0.1 Immature Gran # (Auto) 0.04 H Neut # (Auto) 8.26 H Lymph # (Auto) 1.38 O'Brien # (Auto) 0.82 H Eos # (Auto) 0.06 Baso # (Auto) 0.01 PT 12.9 H INR 1.3 H APTT 36.0 H PTT Ratio 1.3 Sodium 140 Potassium 2.6 L Chloride 101 Carbon Dioxide 26 Anion Gap 13.0 H BUN 50 H Creatinine 2.51 H Est Cr Clr Drug Dosing 13.9 Est GFR ( Amer) 19.8 Est GFR (Non-Af Amer) 17.1 BUN/Creatinine Ratio 19.8 Glucose 86 POC Glucose Lactate Calcium 8.9 Magnesium 1.7 L Total Bilirubin 1.1 H Direct Bilirubin 0.4 H AST 35 ALT 33 Alkaline Phosphatase 101 Ammonia Troponin I 0.045 Total Protein 6.9 Albumin 3.2 L Lipase 253 Urine Color Urine Appearance Urine pH Ur Specific Hamilton Urine Protein Urine Glucose (UA) Urine Ketones Urine Blood Urine Nitrite Urine Bilirubin Urine Urobilinogen Ur Leukocyte Esterase Urine WBC (Auto) Urine RBC (Auto) U Hyaline Cast (Auto) U Epithel Cells (Auto) Urine Bacteria (Auto) Ur Renal Epithelial Cell 07/18/18 07/18/18 07/18/18 13:42 14:03 14:08 WBC RBC Hgb Hct MCV MCH MCHC RDW Std Deviation RDW Coeff of Griselda Plt Count MPV Immature Gran % (Auto) Neut % (Auto) Lymph % (Auto) O'Brien % (Auto) Eos % (Auto) Baso % (Auto) Immature Gran # (Auto) Neut # (Auto) Lymph # (Auto) O'Brien # (Auto) Eos # (Auto) Baso # (Auto) PT INR APTT PTT Ratio Sodium Potassium Chloride Carbon Dioxide Anion Gap BUN Creatinine Est Cr Clr Drug Dosing Est GFR ( Amer) Est GFR (Non-Af Amer) BUN/Creatinine Ratio Glucose POC Glucose 96 Lactate 1.6 Calcium Magnesium Total Bilirubin Direct Bilirubin AST ALT Alkaline Phosphatase Ammonia < 10.0 L Troponin I Total Protein Albumin Lipase Urine Color Urine Appearance Urine pH Ur Specific Hamilton Urine Protein Urine Glucose (UA) Urine Ketones Urine Blood Urine Nitrite Urine Bilirubin Urine Urobilinogen Ur Leukocyte Esterase Urine WBC (Auto) Urine RBC (Auto) U Hyaline Cast (Auto) U Epithel Cells (Auto) Urine Bacteria (Auto) Ur Renal Epithelial Cell 07/18/18 17:00 WBC RBC Hgb Hct MCV MCH MCHC RDW Std Deviation RDW Coeff of Griselda Plt Count MPV Immature Gran % (Auto) Neut % (Auto) Lymph % (Auto) O'Brien % (Auto) Eos % (Auto) Baso % (Auto) Immature Gran # (Auto) Neut # (Auto) Lymph # (Auto) O'Brien # (Auto) Eos # (Auto) Baso # (Auto) PT INR APTT PTT Ratio Sodium Potassium Chloride Carbon Dioxide Anion Gap BUN Creatinine Est Cr Clr Drug Dosing Est GFR ( Amer) Est GFR (Non-Af Amer) BUN/Creatinine Ratio Glucose POC Glucose Lactate Calcium Magnesium Total Bilirubin Direct Bilirubin AST ALT Alkaline Phosphatase Ammonia Troponin I Total Protein Albumin Lipase Urine Color Yellow Urine Appearance Clear Urine pH 5.5 Ur Specific Hamilton 1.021 Urine Protein Trace H Urine Glucose (UA) Negative Urine Ketones Trace H Urine Blood Negative Urine Nitrite Negative Urine Bilirubin Negative Urine Urobilinogen Negative Ur Leukocyte Esterase 1+ H Urine WBC (Auto) 5-10 H Urine RBC (Auto) 0-4 U Hyaline Cast (Auto) 10-30 H U Epithel Cells (Auto) >30 H Urine Bacteria (Auto) Negative Ur Renal Epithelial Cell 0-[address] head/brain wo con Findings: The paranasal sinuses and mastoid air cells are clear. The calvarium and skull base are intact. The ventricles and sulci are within normal limits. There is no mass, hematoma, midline shift, or acute infarct. Age-related atrophy and chronic small vessel change are noted. Impression: No acute intracranial abnormality. Age-related atrophy and chronic small vessel change. XR chest 1V portable IMPRESSION: 1. Subtle interstitial prominence. An element of mild pulmonary vascular congestion cannot be excluded 2. No evidence of focal pulmonary consolidation Code Status & VTE Plan Code Status DNR VTE Prophylaxis Plan VTE Prophylaxis will be ordered: Yes (1) Dementia Dementia behavioral disturbance: with behavioral disturbance Dementia type: Alzheimer's disease
[2018-07-18 17:14] LABS: Appearance Urine Clear (Clear); Bacteria Urine Automated Negative (Negative); Bilirubin Urine Negative (Negative); Blood Urine Negative (Negative); Color Urine Yellow; Epithelial Cell Urine Auto >30 /lpf (0-5); Glucose Urine UA Negative (Negative); Ketones Urine Trace (Negative); Leukocyte Esterase Urine 1+ (Negative); Nitrite Urine Negative (Negative); Protein Urine Trace (Negative); RBC Urine Automated 0-4 /hpf (0-4); Specific Gravity Urine 1.021 (1.000-1.030); Urobilinogen Urine Negative (Negative); pH Urine 5.5 (4.5-7.5)
[2018-07-18 17:23] LABS: Renal Epithelial Cells Urine 0-5 /lpf (0-5)
[2018-07-18] MEDS ORDERED: ONDANSETRON INJ 2 MG/ML 2 ML VIAL IV PRN (18:02)
--- NOTE | 2018-07-18 18:44 | Emergency Department Note ---
Entered by Mckenzie Hamlin acting as a scribe for Lucas Cameron History of Present Illness General Chief complaint: Confusion Time Seen by Provider: 07/18/18 13:14 Source: patient and family (daughter ) Mode of arrival: ambulatory Limitations: altered mental status History of Present Illness Provider complaint: confusion Onset (ago): unknown Location: head The patient is a 82 year old female who presents to the Emergency Room with complaints of being confused per the patient's daughter. Per daughter, the patient lives at [facility] and would not take her medications earlier in the day prior to arrival. The patient states that the detention would not give her water. The HPI and ROS are limited due to the patient's altered mental status. Home Medications Home Medications Medication Instructions Recorded Confirmed Type amiodarone 200 mg PO PM 04/03/18 07/18/18 History calcium carbonate [Calci-Chew] 1,000 mg PO QAM 04/03/18 07/18/18 History ferrous sulfate [iron] 325 mg PO QAM 04/03/18 07/18/18 History Pradaxa 75 mg PO BID 30 Days #60 cap 06/18/18 07/18/18 Rx PreserVision AREDS-2 1 tab PO BIDM 06/20/18 07/18/18 History acetaminophen [Acetaminophen Extra 1,000 mg PO Q8H PRN 06/26/18 07/18/18 History Strength] Allergies Allergy/AdvReac Type Severity Reaction Status Date / Time Penicillins Allergy Mild Rash Verified 06/27/18 03:57 risedronate sodium AdvReac Mild Nausea Verified 06/27/18 03:57 Past Med/Surg History Social History Preferred Language: Cypriot Communication Ability: Effective Beliefs That Will Affect Care: None Current Living Situation: [facility] current occupational status: retired Feels Safe at Home: Yes Smoking Status: Never smoker Hx Alcohol Use: No Hx Substance Use: No Review of Systems The patient's ROS is limited due to the patient's altered mental status. Physical Exam Vital Signs Vital Signs - 24 hr 07/18/18 13:02 07/18/18 13:06 07/18/18 13:23 Temperature 36.4 C L Temperature Source Oral Sepsis Recent Fever Within 48 Hours No Sepsis Action Taken by Nursing No Action Required Pulse Rate 98 H Pulse Rate [Left] Pulse Rate from SpO2 Sensor Respiratory Rate 20 Blood Pressure 125/89 Blood Pressure [Right Arm] Blood Pressure Mean 101 Blood Pressure Mean [Right Arm] Blood Pressure Position [Right Arm] Pulse Oximetry 99 95 Oxygen Delivery Method Room Air Room Air Room Air 07/18/18 13:55 07/18/18 15:02 Temperature Temperature Source Sepsis Recent Fever Within 48 Hours Sepsis Action Taken by Nursing Pulse Rate 90 Pulse Rate [Left] 96 H Pulse Rate from SpO2 Sensor 91 H Respiratory Rate 22 14 Blood Pressure 130/85 Blood Pressure [Right Arm] 126/91 Blood Pressure Mean 100 Blood Pressure Mean [Right Arm] 102 Blood Pressure Position [Right Arm] Lying Pulse Oximetry 100 99 Oxygen Delivery Method Room Air Room Air HENT: Exam performed. - Head: Normocephalic and atraumatic. - Right Ear: External ear normal. No mastoid tenderness. - Left Ear: External ear normal. No mastoid tenderness. - Mouth/Throat: The oropharynx is clear. Dry mucous membranes. No trismus in the jaw. No dental abscesses or uvula swelling. No oropharyngeal exudate or tonsillar abscesses. EYES: Conjunctivae and EOM are normal. Pupils are equal, round, and reactive to light. Right eye exhibits no discharge. Left eye exhibits no discharge. No scleral icterus. NECK: Normal range of motion. Neck supple. No JVD present. No spinous process tenderness present. No carotid bruit present. No rigidity. No tracheal deviation and normal range of motion present. No Brudzinski's sign and no Kernig's sign noted. CV: Normal rate, regular rhythm, normal heart sounds and intact distal pulses. There is no peripheral edema. Palpable radial pulses bue. PULM/CHEST: Effort normal and breath sounds normal. No respiratory distress. No stridor. She has no wheezes. She has no rales. Chest Wall: She exhibits no tenderness. ABD: The abdomen is soft. Bowel sounds are normal. She has no distension. No mass is present. There is no tenderness. There is no rebound, no guarding, no Moore's sign and no tenderness at McBurney's point. Rovsig negative MUSC/SKEL: Normal range of motion. There is no peripheral edema, tenderness or deformity. LYMPH: No cervical adenopathy. NEURO: Motor sensation is grossly intact. SKIN: Skin is warm and dry. She is not diaphoretic. Course 1317: The patient was evaluated in room B9, and a complete history and physical examination were performed. 1450: The patient's vital signs are stable. The patient's imaging are within normal limits. The patient's labs show an elevated creatinine at 2.5 up from baseline of approximately 1.5 which correlates with an acute kidney injury. The patient also had low levels of potassium and magnesium, these electrolytes were replaced in the ED. The patient will be evaluated for admission. I reviewed the patient's case with Dr. Perez [facility] Hospitalist who accepts the patient's admission. Consultations [facility]: 15:14 Administered Medications Sodium Chloride (Nss 1000ml) 1,000 mls @ 125 mls/hr IV .Q8H ANNE Stop: 08/17/18 13:29 Last Admin: 07/18/18 18:36 Dose: 125 mls/hr Documented by: [id number] Infusion: 07/18/18 18:36 Dose: 0 mls/hr Documented by: [id number] Infusion: 07/18/18 17:52 Dose: 0 mls/hr Documented by: [id number] Admin: 07/18/18 13:55 Dose: 125 mls/hr Documented by: [id number] Discontinued Medications Magnesium Sulfate/Dextrose (Magnesium Sulfate / D5w) 1 gm in 100 mls @ 100 mls/hr IV ONE ONE Stop: 07/18/18 16:23 Last Infusion: 07/18/18 17:24 Dose: 0 mls/hr Documented by: [id number] Admin: 07/18/18 16:24 Dose: 100 mls/hr Documented by: [id number] Potassium Chloride (Klor-Con M10) 40 meq PO NOW STA Stop: 07/18/18 15:26 Last Admin: 07/18/18 16:25 Dose: 40 meq Documented by: [id number] Medical Decision Making Medical Records Attestation: I reviewed the patient's medical records. Home Medications Current Medication List: was personally reviewed by me Laboratory Data Attestation: I reviewed the patient's lab results. Result diagrams: 07/18/18 13:42 07/18/18 13:42 Lab Results 07/18/18 07/18/18 07/18/18 Range/Units 13:42 13:42 13:42 WBC 10.57 (4.8-10.8) K/uL RBC 4.19 L (4.2-5.4) M/uL Hgb 13.1 (12.0-16.0) g/dL Hct 36.3 L (37-47) % MCV 86.6 (80-100) fL MCH 31.3 (25-34) pg MCHC 36.1 H (32-36) g/dL RDW Std Deviation 46.0 (36.4-46.3) fL RDW Coeff of Griselda 14.6 H (11.5-14.5) % Plt Count 265 (130-400) K/uL MPV 11.1 H (7.4-10.4) fL Immature Gran % (Auto) 0.4 % Neut % (Auto) 78.0 % Lymph % (Auto) 13.1 % [place] % (Auto) 7.8 % Eos % (Auto) 0.6 % Baso % (Auto) 0.1 % Immature Gran # (Auto) 0.04 H (0.00-0.02) K/uL Neut # (Auto) 8.26 H (1.4-6.5) K/uL Lymph # (Auto) 1.38 (1.2-3.4) K/uL [place] # (Auto) 0.82 H (0.11-0.59) K/uL Eos # (Auto) 0.06 (0-0.5) K/uL Baso # (Auto) 0.01 (0-0.2) K/uL PT 12.9 H (9.0-12.0) Seconds INR 1.3 H (0.9-1.1) APTT 36.0 H (21.0-31.0) Seconds PTT Ratio 1.3 Sodium 140 (136-145) mmol/L Potassium 2.6 L (3.5-5.1) mmol/L Chloride 101 (98-107) mmol/L Carbon Dioxide 26 (21-32) mmol/L Anion Gap 13.0 H (3-11) BUN 50 H (7-18) mg/dl Creatinine 2.51 H (0.6-1.2) mg/dl Est Cr Clr Drug Dosing 13.9 ml/min Est GFR ( Amer) 19.8 Est GFR (Non-Af Amer) 17.1 BUN/Creatinine Ratio 19.8 (10-20) Glucose 86 (70-99) mg/dl POC Glucose (70-99) Lactate (0.4-2.0) mmol/L Calcium 8.9 (8.5-10.1) mg/dl Magnesium 1.7 L (1.8-2.4) mg/dl Total Bilirubin 1.1 H (0.2-1) mg/dl Direct Bilirubin 0.4 H (0-0.2) mg/dl AST 35 (15-37) U/L ALT 33 (12-78) U/L Alkaline Phosphatase 101 (45-117) U/L Ammonia (11-32) umol/L Troponin I 0.045 (0-0.045) ng/ml Total Protein 6.9 (6.4-8.2) gm/dl Albumin 3.2 L (3.4-5.0) gm/dl Lipase 253 (73-393) U/L 07/18/18 07/18/18 07/18/18 Range/Units 13:42 14:03 14:08 WBC (4.8-10.8) K/uL RBC (4.2-5.4) M/uL Hgb (12.0-16.0) g/dL Hct (37-47) % MCV (80-100) fL MCH (25-34) pg MCHC (32-36) g/dL RDW Std Deviation (36.4-46.3) fL RDW Coeff of Griselda (11.5-14.5) % Plt Count (130-400) K/uL MPV (7.4-10.4) fL Immature Gran % (Auto) % Neut % (Auto) % Lymph % (Auto) % [place] % (Auto) % Eos % (Auto) % Baso % (Auto) % Immature Gran # (Auto) (0.00-0.02) K/uL Neut # (Auto) (1.4-6.5) K/uL Lymph # (Auto) (1.2-3.4) K/uL [place] # (Auto) (0.11-0.59) K/uL Eos # (Auto) (0-0.5) K/uL Baso # (Auto) (0-0.2) K/uL PT (9.0-12.0) Seconds INR (0.9-1.1) APTT (21.0-31.0) Seconds PTT Ratio Sodium (136-145) mmol/L Potassium (3.5-5.1) mmol/L Chloride (98-107) mmol/L Carbon Dioxide (21-32) mmol/L Anion Gap (3-11) BUN (7-18) mg/dl Creatinine (0.6-1.2) mg/dl Est Cr Clr Drug Dosing ml/min Est GFR ( Amer) Est GFR (Non-Af Amer) BUN/Creatinine Ratio (10-20) Glucose (70-99) mg/dl POC Glucose 96 (70-99) Lactate 1.6 (0.4-2.0) mmol/L Calcium (8.5-10.1) mg/dl Magnesium (1.8-2.4) mg/dl Total Bilirubin (0.2-1) mg/dl Direct Bilirubin (0-0.2) mg/dl AST (15-37) U/L ALT (12-78) U/L Alkaline Phosphatase (45-117) U/L Ammonia < 10.0 L (11-32) umol/L Troponin I (0-0.045) ng/ml Total Protein (6.4-8.2) gm/dl Albumin (3.4-5.0) gm/dl Lipase (73-393) U/L Imaging Data Radiologist's Impression: Radiology results as stated below per my review and the radiologist's interpretation: CT head/brain wo con CT DOSE: 537.48 mGy.cm HISTORY: Mental status change ams TECHNIQUE: Multiaxial CT images of the head were performed without the use of intravenous contrast. A dose lowering technique was utilized adhering to the principles of ALARA. Comparison: 06/20/2018 Findings: The paranasal sinuses and mastoid air cells are clear. The calvarium and skull base are intact. The ventricles and sulci are within normal limits. There is no mass, hematoma, midline shift, or acute infarct. Age-related atrophy and chronic small vessel change are noted. Impression: No acute intracranial abnormality. Age-related atrophy and chronic small vessel change. The above report was generated using voice recognition software. It may contain grammatical, syntax or spelling errors. Electronically signed by: Gary Sanchez M.D. 07/18/2018 2:52 PM XR chest 1V portable CLINICAL HISTORY: Acute change in mental status COMPARISON STUDY: 06/26/2018 FINDINGS: The heart is the upper limits of normal in size. There is no lobar consolidation. There are no pleural effusions. There is slight elevation of the interstitium in an element of mild pulmonary vascular congestion cannot be excluded. There are surgical clips in the left axillary region.[ IMPRESSION: 1. Subtle interstitial prominence. An element of mild pulmonary vascular congestion cannot be excluded 2. No evidence of focal pulmonary consolidation Electronically signed by: Raul Carvajal M.D. 07/18/2018 1:37 PM ECG Data Attestation: I personally reviewed and interpreted this ECG as follows: Indication: altered mental status Rate (beats per minute): 102 Rhythm: atrial flutter Findings: + other (AR and QRS intervals within normal limits, QTC interval is 521) and + ST depression (mild ST depression in leads V4-V6); no ST elevation Blood Pressure Blood Pressure Findings: Normal blood pressure MDM Narrative The patient's vital signs are stable. The patient's imaging are within normal limits. The patient's labs show an elevated creatinine at 2.5 up from baseline of approximately 1.5 which correlates with an acute kidney injury. The patient also had low levels of potassium and magnesium, these electrolytes were replaced in the ED. The patient will be evaluated for admission. I reviewed the deshawn cuellar's case with Dr. Peralta[facility] Hospitalist who accepts the patient's admission. Impression & Plan Low blood potassium, Low blood magnesium, NEHA (acute kidney injury) Discharge Plan Visit Data *Final* Discharge Date/Time: 07/18/18 17:55 Chief Complaint: Confusion ED Provider: Lucas Cameron Discharge Problem: Low blood potassium, Low blood magnesium, NEHA (acute kidney injury) Patient Disposition: Admitted As Inpatient Discharge Instructions Interventions: ED Discharge Assessment Last Done: 07/18/18 17:55 The scribe's documentation has been prepared under my direction and personally reviewed by me in its entirety. I confirm that the note above accurately reflects all work, treatment, procedures, and medical decision making performed by me.
[2018-07-18] MEDS: NSS + 20MEQ KCL 20 MEQ/1,000 ML BAG IV SCH (19:16)
[2018-07-18] MEDS: APIXABAN 2.5 MG TAB PO SCH (19:59)
[2018-07-18] MEDS: AMIODARONE 200 MG TAB PO SCH (20:00)
[2018-07-18] MEDS ORDERED: DABIGATRAN ETEXILATE 75 MG CAP PO SCH (21:00)
[2018-07-19] MEDS: NSS + 20MEQ KCL 20 MEQ/1,000 ML BAG IV SCH ×2 (06:58→19:38)
[2018-07-19 07:52] LABS: Basophils # (auto) 0.01 K/uL (0-0.2); Basophils % (auto) 0.1 %; Eosinophils # (auto) 0.17 K/uL (0-0.5); Eosinophils % (auto) 1.9 %; Hematocrit (blood only) 35.8 % (37-47); Immature Granulocytes # (auto) 0.03 K/uL (0.00-0.02); Immature Granulocytes % (auto) 0.3 %; Lymphocytes # (auto) 1.58 K/uL (1.2-3.4); Lymphocytes % (auto) 17.6 %; Mean Corpuscular Hgb Conc 33.5 g/dL (32-36); Mean Corpuscular Volume 89.3 fL (80-100); Mean Platelet Volume 11.6 fL (7.4-10.4); Monocytes # (auto) 0.81 K/uL (0.11-0.59); Neutrophils # (auto) 6.36 K/uL (1.4-6.5); Neutrophils % (auto) 71.1 %; Platelet Count 210 K/uL (130-400); RDW Coefficient of Variation 15.1 % (11.5-14.5); Red Blood Count 4.01 M/uL (4.2-5.4); White Blood Count 8.96 K/uL (4.8-10.8)
[2018-07-19 08:12] LABS: BUN Creatinine Ratio 21.3 (10-20); Calcium 8.1 mg/dl (8.5-10.1); Est GFR (African American) 27.1; Est GFR (Non-African American) 23.4; Potassium 3.5 mmol/L (3.5-5.1)
[2018-07-19] MEDS: APIXABAN 2.5 MG TAB PO SCH ×2 (08:20→20:11)
[2018-07-19] MEDS: FERROUS SULFATE 325 MG TAB PO SCH (08:20)
[2018-07-19] MEDS: CALCIUM CARBONATE 1250MG TAB PO SCH (08:20)
--- NOTE | 2018-07-19 11:45 | Hospitalist Progress Note ---
Date of Service July 19, 2018 Assessment & Plan (1) Acute renal failure: Cr up to 2.5 on admission will give IV fluids, likely from poor intake but patient is not a good historian Cr improved to 1.9 which confirms prerenal etiology UO is adequate (2) Hypokalemia: K low at 2.5 replacement PO given in the ED will add K to fluids and repeat in the morning - 3.5 this morning, thus it is resolved (3) Dementia: continue supportive care resides Kasandra likely needs a lock down unit since she has wondered away from [facility] twice and fallen (4) CKD (chronic kidney disease): Cr typically ranges 1.5-1.7 which is stage III keep close eye on urine output Cr down to 1.9, close to baseline (5) Atrial fibrillation: chronic takes Pradaxa, but with renal impairment and GFR < 15, will change to Eliquis 2.5 BID resume Pradaxa when renal function improves, possibly tomorrow Subjective patient sleeping a lot today, did not eat much breakfast vitals stable reviewed labs, Cr improved to 1.9 from 2.5 K is normal no family at the bedside Review of Systems Review of Systems: Unobtainable due to cognitive status Physical Exam Constitutional: WD/WN, vitals as above + altered mental status; no acute distress Eyes: PERRL, conjunctivae normal, anicteric sclerae ENMT: external ear and nose normal, oropharynx normal Neck: trachea midline, no thyromegaly Respiratory: normal respiratory effort, lungs clear to auscultation Cardiovascular: RRR, no murmur, no edema Gastrointestinal (Abdomen): normal bowel sounds, soft, nontender, no hepatosplenomegaly Musculoskeletal: no cyanosis or clubbing, extremities motor strength 5/5 Skin: no rashes, warm and dry Neurologic: patellar DTR's 2+ bilat, sensation intact and PERRL, EOMI, accommodation nl, no face palsy, no dysarthria Psychiatric: Orientation: + not alert (lethargic), + not oriented to person, + not oriented to place and + not oriented to time Lymphatic: no cervical or axillary lymphadenopathy Results & Data Vital Signs (Past 12 Hours) Vital Signs Temp Pulse Resp BP Pulse Ox 07/19/18 06:56 36.5 C 95 H 21 107/70 94 Laboratory Results Laboratory Results - last 24 hr 07/18/18 07/18/18 07/18/18 13:42 13:42 13:42 WBC 10.57 RBC 4.19 L Hgb 13.1 Hct 36.3 L MCV 86.6 MCH 31.3 MCHC 36.1 H RDW Std Deviation 46.0 RDW Coeff of Griselda 14.6 H Plt Count 265 MPV 11.1 H Immature Gran % (Auto) 0.4 Neut % (Auto) 78.0 Lymph % (Auto) 13.1 [place] % (Auto) 7.8 Eos % (Auto) 0.6 Baso % (Auto) 0.1 Immature Gran # (Auto) 0.04 H Neut # (Auto) 8.26 H Lymph # (Auto) 1.38 [place] # (Auto) 0.82 H Eos # (Auto) 0.06 Baso # (Auto) 0.01 PT 12.9 H INR 1.3 H APTT 36.0 H PTT Ratio 1.3 Sodium 140 Potassium 2.6 L Chloride 101 Carbon Dioxide 26 Anion Gap 13.0 H BUN 50 H Creatinine 2.51 H Est Cr Clr Drug Dosing 13.9 Est GFR ( Amer) 19.8 Est GFR (Non-Af Amer) 17.1 BUN/Creatinine Ratio 19.8 Glucose 86 POC Glucose Lactate Calcium 8.9 Magnesium 1.7 L Total Bilirubin 1.1 H Direct Bilirubin 0.4 H AST 35 ALT 33 Alkaline Phosphatase 101 Ammonia Troponin I 0.045 Total Protein 6.9 Albumin 3.2 L Lipase 253 Urine Color Urine Appearance Urine pH Ur Specific [place] Urine Protein Urine Glucose (UA) Urine Ketones Urine Blood Urine Nitrite Urine Bilirubin Urine Urobilinogen Ur Leukocyte Esterase Urine WBC (Auto) Urine RBC (Auto) U Hyaline Cast (Auto) U Epithel Cells (Auto) Urine Bacteria (Auto) Ur Renal Epithelial Cell 07/18/18 07/18/18 07/18/18 13:42 14:03 14:08 WBC RBC Hgb Hct MCV MCH MCHC RDW Std Deviation RDW Coeff of Griselda Plt Count MPV Immature Gran % (Auto) Neut % (Auto) Lymph % (Auto) [place] % (Auto) Eos % (Auto) Baso % (Auto) Immature Gran # (Auto) Neut # (Auto) Lymph # (Auto) [place] # (Auto) Eos # (Auto) Baso # (Auto) PT INR APTT PTT Ratio Sodium Potassium Chloride Carbon Dioxide Anion Gap BUN Creatinine Est Cr Clr Drug Dosing Est GFR ( Amer) Est GFR (Non-Af Amer) BUN/Creatinine Ratio Glucose POC Glucose 96 Lactate 1.6 Calcium Magnesium Total Bilirubin Direct Bilirubin AST ALT Alkaline Phosphatase Ammonia < 10.0 L Troponin I Total Protein Albumin Lipase Urine Color Urine Appearance Urine pH Ur Specific [place] Urine Protein Urine Glucose (UA) Urine Ketones Urine Blood Urine Nitrite Urine Bilirubin Urine Urobilinogen Ur Leukocyte Esterase Urine WBC (Auto) Urine RBC (Auto) U Hyaline Cast (Auto) U Epithel Cells (Auto) Urine Bacteria (Auto) Ur Renal Epithelial Cell 07/18/18 07/19/18 07/19/18 17:00 07:06 07:06 WBC 8.96 RBC 4.01 L Hgb 12.0 Hct 35.8 L MCV 89.3 MCH 29.9 MCHC 33.5 RDW Std Deviation 49.0 H RDW Coeff of Griselda 15.1 H Plt Count 210 MPV 11.6 H Immature Gran % (Auto) 0.3 Neut % (Auto) 71.1 Lymph % (Auto) 17.6 [place] % (Auto) 9.0 Eos % (Auto) 1.9 Baso % (Auto) 0.1 Immature Gran # (Auto) 0.03 H Neut # (Auto) 6.36 Lymph # (Auto) 1.58 [place] # (Auto) 0.81 H Eos # (Auto) 0.17 Baso # (Auto) 0.01 PT INR APTT PTT Ratio Sodium 144 Potassium 3.5 D Chloride 111 H Carbon Dioxide 24 Anion Gap 9.0 BUN 41 H Creatinine 1.94 H D Est Cr Clr Drug Dosing 18.0 Est GFR ( Amer) 27.1 Est GFR (Non-Af Amer) 23.4 BUN/Creatinine Ratio 21.3 H Glucose 70 POC Glucose Lactate Calcium 8.1 L Magnesium Total Bilirubin Direct Bilirubin AST ALT Alkaline Phosphatase Ammonia Troponin I Total Protein Albumin Lipase Urine Color Yellow Urine Appearance Clear Urine pH 5.5 Ur Specific [place] 1.021 Urine Protein Trace H Urine Glucose (UA) Negative Urine Ketones Trace H Urine Blood Negative Urine Nitrite Negative Urine Bilirubin Negative Urine Urobilinogen Negative Ur Leukocyte Esterase 1+ H Urine WBC (Auto) 5-10 H Urine RBC (Auto) 0-4 U Hyaline Cast (Auto) 10-30 H U Epithel Cells (Auto) >30 H Urine Bacteria (Auto) Negative Ur Renal Epithelial Cell 0-5 Medications Administered Current Inpatient Medications Acetaminophen (Tylenol) 650 mg PO Q4H PRN PRN Reason: pain/fever Stop: 08/17/18 18:01 Amiodarone HCl (Cordarone) 200 mg PO PM [facility] Stop: 08/17/18 20:59 Last Admin: 07/18/18 20:00 Dose: 200 mg Documented by: Apixaban (Eliquis) 2.5 mg PO BID [facility] Stop: 08/17/18 20:59 Last Admin: 07/19/18 08:20 Dose: 2.5 mg Documented by: Calcium Carbonate (Os-Dell 500) 1,250 mg PO QAM [facility] Stop: 08/18/18 08:59 Last Admin: 07/19/18 08:20 Dose: 1,250 mg Documented by: Ferrous Sulfate (Feosol) 325 mg PO QAM [facility] Stop: 08/18/18 08:59 Last Admin: 07/19/18 08:20 Dose: 325 mg Documented by: Potassium Chloride/Sodium Chloride (Normal Saline W/20 Meq Kcl) 20 meq in 1,000 mls @ 80 mls/hr IV .[id number] [facility] Stop: 08/17/18 19:59 Last Admin: 07/19/18 06:58 Dose: 80 mls/hr Documented by: Ondansetron HCl (Zofran) 4 mg IV Q6H PRN PRN Reason: Nausea Stop: 08/17/18 18:01 (1) Dementia Dementia behavioral disturbance: with behavioral disturbance Dementia type: Alzheimer's disease
[2018-07-19] MEDS: LORazepam 1 MG TAB PO PRN (16:05)
[2018-07-19] MEDS: AMIODARONE 200 MG TAB PO SCH (20:11)
[2018-07-19] MEDS: HALOPERIDOL LACTATE 5 MG/ML 1 ML VIAL IM PRN ×2 (21:58→21:59)
[2018-07-19] MEDS: ACETAMINOPHEN 325 MG TAB PO PRN (22:32)
[2018-07-20 05:51] LABS: Basophils # (auto) 0.02 K/uL (0-0.2); Basophils % (auto) 0.2 %; Eosinophils # (auto) 0.23 K/uL (0-0.5); Eosinophils % (auto) 2.7 %; Hematocrit (blood only) 32.5 % (37-47); Immature Granulocytes # (auto) 0.04 K/uL (0.00-0.02); Immature Granulocytes % (auto) 0.5 %; Lymphocytes # (auto) 1.56 K/uL (1.2-3.4); Lymphocytes % (auto) 18.3 %; Mean Corpuscular Hgb Conc 33.8 g/dL (32-36); Mean Platelet Volume 10.9 fL (7.4-10.4); Monocytes # (auto) 0.83 K/uL (0.11-0.59); Monocytes % (auto) 9.7 %; Neutrophils # (auto) 5.85 K/uL (1.4-6.5); Neutrophils % (auto) 68.6 %; Platelet Count 182 K/uL (130-400); RDW Coefficient of Variation 15.3 % (11.5-14.5); RDW Standard Deviation 49.9 fL (36.4-46.3); Red Blood Count 3.65 M/uL (4.2-5.4); White Blood Count 8.53 K/uL (4.8-10.8)
[2018-07-20 06:52] LABS: BUN Creatinine Ratio 18.5 (10-20); Calcium 7.3 mg/dl (8.5-10.1); Creatinine Clr Calc Pharmacy 25.2 ml/min; Est GFR (African American) 40.5; Potassium 3.5 mmol/L (3.5-5.1)
[2018-07-20] MEDS: APIXABAN 2.5 MG TAB PO SCH ×2 (07:38→19:32)
[2018-07-20] MEDS: CALCIUM CARBONATE 1250MG TAB PO SCH (07:38)
[2018-07-20] MEDS: FERROUS SULFATE 325 MG TAB PO SCH (07:38)
[2018-07-20] MEDS: NSS + 20MEQ KCL 20 MEQ/1,000 ML BAG IV SCH ×2 (08:11→23:43)
[2018-07-20] MEDS: HALOPERIDOL LACTATE 5 MG/ML 1 ML VIAL IM PRN (12:00)
--- NOTE | 2018-07-20 13:39 | Hospitalist Progress Note ---
Date of Service July 20, 2018 Assessment & Plan (1) Acute renal failure: Cr up to 2.5 on admission will give IV fluids, likely from poor intake but patient is not a good historian Cr improved to 1.3 which confirms prerenal etiology UO is adequate will decrease fluids to just 50cc/hr, oral intake is still suboptimal fear that patient will get dehydrated again due to anxiety, no eating/drinking (2) Hypokalemia: K low at 2.5 on admission replacement PO given in the ED will add K to fluids and repeat in the morning - 3.5 two days in a row (3) Dementia: continue supportive care resides [facility] she is now in the lock down unit, was only there for one day and had to be admitted for the renal failure should definitely return to locked unit on discharge, she eloped from the personal care side very agitated, last night Haldol helped patient unwilling to take oral medications, not sure if adding atypical antipsychotic would help mood since she won't take consistently consult psychiatry for recommendations, she was just admitted to psych at the end of June (4) CKD (chronic kidney disease): Cr typically ranges 1.5-1.7 which is stage III keep close eye on urine output Cr down to 1.39, below baseline (5) Atrial fibrillation: chronic takes Pradaxa, but with renal impairment and GFR < 15, will change to Eliquis 2.5 BID resume Pradaxa tomorrow, however, has issues with compliance, will only take medications when family here Subjective patient is very tearful at times, very confused, very anxious she just wants to go home she is not oriented will not take medications unless her family is here to tell her it is okay reviewed labs, Cr down to 1.3 and K is normal CBC normal will decrease fluids but PO intake is not very good will ask psychiatry if they have any recommendations for mood stabilization fear that she will get dehydrated again unless she calms down Review of Systems Review of Systems: Unobtainable due to cognitive status Physical Exam Constitutional: WD/WN, vitals as above + altered mental status; no acute distress Eyes: PERRL, conjunctivae normal, anicteric sclerae ENMT: external ear and nose normal, oropharynx normal Neck: trachea midline, no thyromegaly Respiratory: normal respiratory effort, lungs clear to auscultation Cardiovascular: RRR, no murmur, no edema Gastrointestinal (Abdomen): normal bowel sounds, soft, nontender, no hepatosplenomegaly Musculoskeletal: no cyanosis or clubbing, extremities motor strength 5/5 Skin: no rashes, warm and dry Neurologic: patellar DTR's 2+ bilat, sensation intact and PERRL, EOMI, accommodation nl, no face palsy, no dysarthria Psychiatric: Orientation: alert; + not oriented to person, + not oriented to place and + not oriented to time Eye Contact: + fair eye contact Speech: + pressured speech Affect: + anxious affect and + tearful affect Mood: + anxious mood Suicidal Thoughts: denies suicidal thoughts Homicidal Thoughts: denies homicidal thoughts Cognition: + recent memory not intact and + remote memory not intact Insight: + poor insight Judgement: + poor judgement Lymphatic: no cervical or axillary lymphadenopathy Results & Data Vital Signs (Past 12 Hours) Vital Signs Temp Pulse Resp BP Pulse Ox 07/20/18 07:40 35.7 C L 87 16 118/69 96 Laboratory Results Laboratory Results - last 24 hr 07/20/18 07/20/18 05:36 05:36 WBC 8.53 RBC 3.65 L Hgb 11.0 L Hct 32.5 L MCV 89.0 MCH 30.1 MCHC 33.8 RDW Std Deviation 49.9 H RDW Coeff of Griselda 15.3 H Plt Count 182 MPV 10.9 H Immature Gran % (Auto) 0.5 Neut % (Auto) 68.6 Lymph % (Auto) 18.3 [place] % (Auto) 9.7 Eos % (Auto) 2.7 Baso % (Auto) 0.2 Immature Gran # (Auto) 0.04 H Neut # (Auto) 5.85 Lymph # (Auto) 1.56 [place] # (Auto) 0.83 H Eos # (Auto) 0.23 Baso # (Auto) 0.02 Sodium 142 Potassium 3.5 Chloride 111 H Carbon Dioxide 26 Anion Gap 5.0 BUN 26 H Creatinine 1.39 H D Est Cr Clr Drug Dosing 25.2 Est GFR ( Amer) 40.5 Est GFR (Non-Af Amer) 35.0 BUN/Creatinine Ratio 18.5 Glucose 63 L Calcium 7.3 L Medications Administered Current Inpatient Medications Acetaminophen (Tylenol) 650 mg PO Q4H PRN PRN Reason: pain/fever Stop: 08/17/18 18:01 Last Admin: 07/19/18 22:32 Dose: 650 mg Documented by: Amiodarone HCl (Cordarone) 200 mg PO PM [facility] Stop: 08/17/18 20:59 Last Admin: 07/19/18 20:11 Dose: 200 mg Documented by: Apixaban (Eliquis) 2.5 mg PO BID [facility] Stop: 07/20/18 23:59 Last Admin: 07/20/18 07:38 Dose: 2.5 mg Documented by: Calcium Carbonate (Os-Dell 500) 1,250 mg PO QAM [facility] Stop: 08/18/18 08:59 Last Admin: 07/20/18 07:38 Dose: 1,250 mg Documented by: Dabigatran (Pradaxa) 75 mg PO BID [facility] Stop: 08/20/18 08:59 Ferrous Sulfate (Feosol) 325 mg PO QAM [facility] Stop: 08/18/18 08:59 Last Admin: 07/20/18 07:38 Dose: 325 mg Documented by: Haloperidol Lactate (Haldol) 2 mg IM Q8H PRN PRN Reason: Agitation Stop: 08/18/18 15:40 Last Admin: 07/20/18 12:00 Dose: 2 mg Documented by: Potassium Chloride/Sodium Chloride (Normal Saline W/20 Meq Kcl) 20 meq in 1,000 mls @ 50 mls/hr IV .Q20H [facility] Stop: 08/17/18 19:59 Last Admin: 07/20/18 08:11 Dose: 80 mls/hr Documented by: Lorazepam (Ativan) 0.5 mg in 1 mls @ 1 mls/min IV Q4H PRN PRN Reason: Agitation Stop: 08/19/18 13:30 Lorazepam (Ativan) 1 mg PO Q8H PRN PRN Reason: Agitation Stop: 08/18/18 15:39 Last Admin: 07/19/18 16:05 Dose: 1 mg Documented by: Ondansetron HCl (Zofran) 4 mg IV Q6H PRN PRN Reason: Nausea Stop: 08/17/18 18:01 (1) Dementia Dementia behavioral disturbance: with behavioral disturbance Dementia type: Alzheimer's disease
[2018-07-20] MEDS: LORazepam 0.5 MG/1 ML VIAL IV PRN ×2 (13:47→23:43)
[2018-07-20] MEDS: AMIODARONE 200 MG TAB PO SCH (19:32)
[2018-07-21] MEDS: DABIGATRAN ETEXILATE 75 MG CAP PO SCH ×2 (08:45→19:51)
[2018-07-21] MEDS: CALCIUM CARBONATE 1250MG TAB PO SCH (08:46)
[2018-07-21] MEDS: FERROUS SULFATE 325 MG TAB PO SCH (08:46)
--- NOTE | 2018-07-21 12:40 | Psychiatric Consultation ---
Date of Consultation July 21, 2018 Impression / Recommendations Impression 82-year-old female admitted medically due to AMS, weakness, and dehydration. Being treated medically for acute renal failure, hypokalemia, CKD, atrial fibrillation, and dementia. Psychiatric consult service was asked to weigh in on medication recommendations due to history of dementia with agitation. Pt's ability to participate in a productive interview is limited; however, there is no observation/mention of criteria that would suggest a primary psychiatric disorder. Reports of behavioral changes have been documented for several months. It remains likely that the patient's behavior is related to her d iagnosis of severe dementia, and we would recommend behavioral management of agitation when it arises. Can attempt to prevent episodes of agitation by frequently reorienting patient to her room, engaging the patient in active conversation, and allowing for regular visits from family and familiar friends. Pt may benefit from the presence of personal items in her room (i.e. blanket, stuffed animal, etc.). Ensure patient has access to glasses or hearing aids as indicated. Pt would benefit from efforts to maintain wake/sleep cycle by keeping blinds open and lights on during the day; alternatively keeping lights off in the evenings to promote sleep. Attempt to prevent frequently napping during daytime hours. Although she had previously been hospitalized on our unit, psychiatric admissions without a primary psychiatric diagnosis is not indicated. Recommending patient be treated medically and then discharged to a locked assisted living facility at discharge. Most recent EKG shows a prolonged QTc of 521; therefore would be cautious with use of antipsychotic medication administration. Pt is already at increased risk of falls and confusion, and excessive use of benzodiazepines should be avoided as well. Primary recommendation is for behavioral management and prevention as outlined above. If agitation/behavior is at risk of causing harm to patient or staff, can consider as needed use of lorazepam or haloperidol as currently ordered. Given age, prolonged QTC at baseline, and other associated risk factors - would be hesitant to schedule dosing of benzodiazepines or atypical antipsychotic medications. No presence of a formal psychiatric disorder has previously been mentioned, therefore there is little indication to initiate medication from another category of psychotropics. We will continue to follow along with the patient while she is hospitalized, offering recommendations as needed. Dr. William Lozano was directly involved in review and discussion of the patient's case and participated in medical decision making regarding treatment recommendations. Will assist in gathering collateral information from family regarding any immediate needs during this hospitalization. CPT Code Initial Consultation: 95203 Psych History Identifying Data 82-year-old female admitted medically due to AMS, weakness, and dehydration. Pt has been hospitalized several times in the past month; most recently on the psychiatric unit from 06/28/18 - 06/30/18. It is also reported patient has been refusing medications as well. Psychiatric consultation is requested to evaluate patient for dementia with agitation and depression. Information is gathered from hospital documentation which is considered reliable. Pt participates in questions, but history is unreliable secondary to her altered mental status and dementia. Chief Complaint "Miserable. Everything went wrong. I had everything lined up for my taoist and the it didn't go as I had planned." History of Present Illness Maru Jeter is a 82-year-old female admitted medically on 07/18/18 due to AMS, weakness, and dehydration. Pt has a PMH of Alzheimer's dementia, atrial fibrillation, CKD, HTN, and HLD. Pt is residing at [facility] and has no formal psychiatric history. Records from inpatient psychiatric admission from 06/28/18 - 06/30/18 were reviewed, along with documentation from current hospitalization. At time of this provider's visit, family is not present to provide collateral information. Information provided by the patient is not reliable due to her altered mental status. Patient does appear to be pleasantly disoriented, stating her only concern at this time is regarding her "taoist." Patient does not become agitated or upset when discussing this concern, and she was reassured by this provider that she does not need to be worried and staff will be taking good care of her. Patient admits that she does feel safe here in the hospital, and denies any thoughts of life not being worth living or desire to end her life. Patient denies auditory or visual hallucinations. She is oriented only to self, but does not appear to be in acute distress. Patient's only request of this provider was to "please ask the angels to take care of my baby siblings and all the baby angels." She is unable at this time to participate in a more productive interview. Patient was encouraged by this provider that we are helping her feel comfortable here in the hospital, and she was encouraged to take medications as directed in order to help with this. Past Psychiatric History Previous Psych History: Recent inpatient psychiatric hospitalization from 06/28/18 - 06/30/18 at [facility]. Current Psychiatric Diagnosis: dementia, depression Previous Psych Admissions: [facility] - 06/28/18 - 06/30/18; secondary to agitation/ confusion related to dementia Past Medication Trials: Has previously received lorazepam and haloperidol to assist with agitation - not routinely scheduled ([facility] - 06/2018) Allergies Allergy/AdvReac Type Severity Reaction Status Date / Time Penicillins Allergy Mild Rash Verified 06/27/18 03:57 risedronate sodium AdvReac Mild Nausea Verified 06/27/18 03:57 Home Medications Home Medications Medication Instructions Recorded Confirmed Type amiodarone 200 mg PO PM 04/03/18 07/18/18 History calcium carbonate [Calci-Chew] 1,000 mg PO QAM 04/03/18 07/18/18 History ferrous sulfate [iron] 325 mg PO QAM 04/03/18 07/18/18 History Pradaxa 75 mg PO BID 30 Days #60 cap 06/18/18 07/18/18 Rx PreserVision AREDS-2 1 tab PO BIDM 06/20/18 07/18/18 History acetaminophen [Acetaminophen Extra 1,000 mg PO Q8H PRN 06/26/18 07/18/18 History Strength] Family History Pt is unable to participate in productive interview secondary to confusion Substance Abuse History Pt is unable to participate in productive interview secondary to confusion Personal History Living Arrangements: Assisted Living ([facility]) Number Of Children: 6 Psychological Trauma History Comment: Pt is unable to participate in productive interview secondary to confusion Patient History Medical History Atrial fibrillation (Chronic) Hypertension (Chronic) Vertigo (Resolved) Open fracture of radius (Resolved) Breast cancer, left Heart valve problem Kidney disease sees Dr. Cruz for kidneys per daughter Vascular dementia Surgical History Tubal ligation status (Chronic) History of left mastectomy Family History Mother , Patient claims her mother in her late 40s of blood clots. Deep vein thrombosis Father , Patient claims father in his early 80s from a motor vehicle accident No problems noted. Other No significant family history Social History Preferred Language: Dominican Communication Ability: Effective Beliefs That Will Affect Care: None Current Living Situation: [facility] current occupational status: retired Feels Safe at Home: Yes Smoking Status: Never smoker Hx Alcohol Use: No Hx Substance Use: No Physical Exam Psychiatric: Orientation: alert and oriented to person; + not oriented to place (believes she is here to receive her taoist) and + not oriented to time Apperance: appropriately dressed (in hospital gown ) and appropriately groomed Eye Contact: good eye contact Motor Behavior: no abnormal motor movements (primarily observed while laying in bed; assistance with ADLs/ambulation) Speech: normal rate/rhythm/volume of speech (soft tone) Affect: + anxious affect Mood: + depressed mood "My mood is horrible. They did my taoist, I was upset it was not more sanctified." Thought Process: + tangential thought process; + thought process not goal directed and + thought process not linear or logical Thought Content: + preoccupation (with her "taoist") Suicidal Thoughts: denies suicidal thoughts and denies suicidal plan Homicidal Thoughts: denies homicidal thoughts Hallucinations: no auditory hallucinations and no visual hallucinations Cognition: language grossly intact; + recent memory not intact, + remote memory not intact and + attention not intact Estimated Intelligence: consistent with education level Insight: + impaired insight Judgement: + impaired judgement Vital Signs (Past 24 Hours): Last Vital Signs Temp 36.8 C 07/21/18 07:28 Pulse 16 L 07/21/18 07:28 Resp 99 H 07/21/18 07:28 BP 120/72 07/21/18 07:28 Pulse Ox 99 07/21/18 07:28 Review of Systems Unable to fully assess due to current condition; patient did not verbalize any current physical concerns to this provider Results & Data Medications Administered Acetaminophen (Tylenol) 650 mg PO Q4H PRN PRN Reason: pain/fever Stop: 08/17/18 18:01 Last Admin: 07/19/18 22:32 Dose: 650 mg Documented by: [id number] Amiodarone HCl (Cordarone) 200 mg PO PM [facility] Stop: 08/17/18 20:59 Last Admin: 07/20/18 19:32 Dose: 200 mg Documented by: [id number] Admin: 07/19/18 20:11 Dose: 200 mg Documented by: [id number] Admin: 07/18/18 20:00 Dose: 200 mg Documented by: [id number] Calcium Carbonate (Os-Dell 500) 1,250 mg PO [facility] Stop: 08/18/18 08:59 Last Admin: 07/21/18 08:46 Dose: 1,250 mg Documented by: [id number] Admin: 07/20/18 07:38 Dose: 1,250 mg Documented by: [id number] Admin: 07/19/18 08:20 Dose: 1,250 mg Documented by: [id number] Dabigatran (Pradaxa) 75 mg PO BID [facility] Stop: 08/20/18 08:59 Last Admin: 07/21/18 08:45 Dose: 75 mg Documented by: [id number] Ferrous Sulfate (Feosol) 325 mg PO [facility] Stop: 08/18/18 08:59 Last Admin: 07/21/18 08:46 Dose: 325 mg Documented by: [id number] Admin: 07/20/18 07:38 Dose: 325 mg Documented by: [id number] Admin: 07/19/18 08:20 Dose: 325 mg Documented by: [id number] Haloperidol Lactate (Haldol) 2 mg IM Q8H PRN PRN Reason: Agitation Stop: 08/18/18 15:40 Last Admin: 07/20/18 12:00 Dose: 2 mg Documented by: [id number] Admin: 07/19/18 21:59 Dose: 2 mg Documented by: [id number] Potassium Chloride/Sodium Chloride (Normal Saline W/20 Meq Kcl) 20 meq in 1,000 mls @ 50 mls/hr IV .Q20H [facility] Stop: 08/17/18 19:59 Last Admin: 07/20/18 23:43 Dose: 50 mls/hr Documented by: [id number] Infusion: 07/20/18 20:41 Dose: 80 mls/hr Documented by: [id number] Admin: 07/20/18 08:11 Dose: 80 mls/hr Documented by: [id number] Infusion: 07/20/18 08:08 Dose: 80 mls/hr Documented by: [id number] Admin: 07/19/18 19:38 Dose: 80 mls/hr Documented by: [id number] Infusion: 07/19/18 19:28 Dose: 80 mls/hr Documented by: [id number] Admin: 07/19/18 06:58 Dose: 80 mls/hr Documented by: [id number] Infusion: 07/19/18 06:58 Dose: 80 mls/hr Documented by: [id number] Admin: 07/18/18 19:16 Dose: 80 mls/hr Documented by: [id number] Lorazepam (Ativan) 0.5 mg in 1 mls @ 1 mls/min IV Q4H PRN PRN Reason: Agitation Stop: 08/19/18 13:30 Last Admin: 07/20/18 23:43 Dose: 1 mls/min Documented by: [id number] Admin: 07/20/18 13:47 Dose: 1 mls/min Documented by: [id number] Lorazepam (Ativan) 1 mg PO Q8H PRN PRN Reason: Agitation Stop: 08/18/18 15:39 Last Admin: 07/19/18 16:05 Dose: 1 mg Documented by: [id number]
--- NOTE | 2018-07-21 17:07 | Palliative Care Progress Note ---
Date of Service July 21, 2018 Subjective Chart reviewed, patient seen and examined-no family at bedside. Attempted to reach patient's daughter. Patient with significant dementia-unable to provide reliable history or participate in medical decision making. Collaborated with case management-we will need to discuss goals of care and possible hospice referral with patient's son and daughter who are the POA's. Results & Data Vital Signs (Past 12 Hours) Vital Signs Temp Pulse Pulse Resp BP BP Pulse Ox 07/21/18 14:56 97.5 F L 20 143/84 H 96 07/21/18 07:28 98.2 F 16 L 117 H 99 H 120/72 99
--- NOTE | 2018-07-21 18:30 | Hospitalist Progress Note ---
Date of Service July 21, 2018 Assessment & Plan (1) Acute renal failure: Cr up to 2.5 on admission Renal failure is prerenal and is likely from poor intake Cr improved to 1.3 with IV fluids which confirms prerenal etiology UO is adequate Continue IV fluids at 50cc/hr, oral intake is still suboptimal likely secondary to her dementia She is likely to Follow BMP in the morning and will likely discontinue IV fluids tomorrow if creatinine remains normal get dehydrated again due to anxiety, no eating/drinking (2) Hypokalemia: K low at 2.5 on admission replacement potassium given orally and IV fluids and is now resolved -Follow BMP in the morning (3) Dementia: continue supportive care resides [facility] she is now in the lock down unit, was only there for one day and had to be admitted for the renal failure should definitely return to locked unit on discharge, she eloped from the personal care side very agitated at times requiring Haldol here patient unwilling to take oral medications, not sure if adding atypical antipsychotic would help mood since she won't take consistently consult psychiatry for recommendations, she was just admitted to psych at the end of June-recommended supportive care for dementia, no primary psychiatric diagnosis (4) CKD (chronic kidney disease): Cr typically ranges 1.5-1.7 which is stage III keep close eye on urine output Cr down to 1.39, below baseline (5) Atrial fibrillation: Chronic, rate controlled Takes Pradaxa, but with renal impairment and GFR < 15, changed to Eliquis 2.5 BID temporarily, now back on Pradaxa - has issues with compliance, will only take medications when family here (6) DVT prophylaxis: Pradaxa Disposition-will likely be stable for discharge tomorrow back to lockdown unit at personal care/dementia unit Palliative care consultation placed and awaiting evaluation. Subjective Patient sleeping and when I woke her told me, "I need to get more sleep." Denies pain anywhere. I discussed the case with palliative care. Case management spoke with the daughter who is recommending palliative care consultation to discuss goals of care as she thinks her mom would not want aggressive treatment. Review of Systems Review of Systems: Unobtainable due to cognitive status Physical Exam Constitutional: + frail appearing; no acute distress Eyes: + anicteric sclerae ENMT: external ear and nose normal, oropharynx normal Neck: trachea midline, no thyromegaly Respiratory: normal respiratory effort, lungs clear to auscultation Cardiovascular: Rate/Rhythm: + tachycardic and + irregularly irregular Heart Sounds: no murmur Extremities: no edema Gastrointestinal (Abdomen): normal bowel sounds, soft, nontender, no hepatosplenomegaly Musculoskeletal: Extremities: extremities normal to inspection; no cyanosis and no clubbing Skin: no rashes, warm and dry Neurologic: moves all extremities and awake; no focal motor deficits Psychiatric: Orientation: oriented to person and cooperative; + not alert (Drowsy but did wake up to questioning) Results & Data Vital Signs (Past 12 Hours) Vital Signs Temp Pulse Pulse Resp BP BP Pulse Ox 07/21/18 14:56 36.4 C L 20 143/84 H 96 07/21/18 07:28 36.8 C 16 L 117 H 99 H 120/72 99 (1) Dementia Dementia behavioral disturbance: with behavioral disturbance Dementia type: Alzheimer's disease
[2018-07-21] MEDS: AMIODARONE 200 MG TAB PO SCH (19:51)
[2018-07-21] MEDS: ACETAMINOPHEN 325 MG TAB PO PRN (20:31)
[2018-07-21] MEDS: NSS + 20MEQ KCL 20 MEQ/1,000 ML BAG IV SCH (20:33)
[2018-07-21] MEDS: LORazepam 0.5 MG/1 ML VIAL IV PRN (21:30)
[2018-07-22] MEDS: LORazepam 0.5 MG/1 ML VIAL IV PRN (04:17)
[2018-07-22] MEDS: FERROUS SULFATE 325 MG TAB PO SCH (08:57)
[2018-07-22] MEDS: DABIGATRAN ETEXILATE 75 MG CAP PO SCH (08:57)
[2018-07-22] MEDS: CALCIUM CARBONATE 1250MG TAB PO SCH (08:57)
[2018-07-22] MEDS: ACETAMINOPHEN 325 MG TAB PO PRN (08:59)
[2018-07-22 09:11] LABS: Calcium 8.3 mg/dl (8.5-10.1); Creatinine Clr Calc Pharmacy 30.7 ml/min; Est GFR (African American) 51.5; Est GFR (Non-African American) 44.4; Potassium 3.4 mmol/L (3.5-5.1)
[2018-07-22] MEDS ORDERED: POTASSIUM CHLORIDE 20 MEQ TABCR PO STA (09:46)
[2018-07-22] MEDS: MAGNESIUM SULFATE / D5W 1 GM/100 ML BAG IV SCH ×3 (11:12→13:50)
[2018-07-22] MEDS: LORazepam 1 MG TAB PO PRN (11:19)
--- NOTE | 2018-07-22 12:37 | Discharge Summary ---
Date of Service July 22, 2018 Admission HPI Per Admitting Provider Chief Complaint: I just want to go home Primary Care Provider: Hemalannalisa 82 yo female with dementia with psychotic features, presents to the ED with altered mental status, dehydration. She was brought by her daughter but her daughter left the bedside prior to me seeing the patient. Attempted to get history from the patient but her answers were not accurate. Most of her recent history was obtained from the record, specifically from an inpatient psychiatric stay from 06/28 to 06/30. The patient has been hospitalized several times the past few months and has been to the ED numerous times. She has baseline melissa ia. She had a full work up for her dementia in early June 2018 with neurology consult. She had MRI brain, testing for RPR, ceruloplasm, BMP, CBC. Dr. 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 Treated with Namenda. She was eventually sent to [facility] assisted living because she was too weak to live alone and family could not provide care. She ended up straying from [facility], falling while walking along the road outside of the facility. She did not suffer any serious injuries. She returned to [facility], she became increasingly depressed. She was not eating, she was having delusional thoughts and hallucinating. She began to have thoughts of harming herself and she even stated that she was planning on jumping in from of a train. When she was discharged from inpatient psych unit on 06/30 she was eating better, denying thoughts of selft harm. She went to [facility]. She presents today with increased confusion, weakness. On lab work her Cr is up to 2.5, baseline is 1.5-1.7. Potassium low at 2.5. Could not determine if she had been eating or drinking. She did say that all the people at her home do is yell at her for not eating. Principal Diagnosis Acute kidney injury, dehydration, hypokalemia, hypomagnesemia Discharge Exam Constitutional WD/WN, vitals as above no acute distress Eyes + anicteric sclerae ENMT external ear and nose normal, oropharynx normal Neck trachea midline, no thyromegaly Respiratory normal respiratory effort, lungs clear to auscultation Cardiovascular Rate/Rhythm: + tachycardic; + abnormal rhythm (Irregularly irregular) Heart Sounds: no murmur Extremities: no edema Gastrointestinal (Abdomen) normal bowel sounds, soft, nontender, no hepatosplenomegaly Musculoskeletal Extremities: extremities normal to inspection; no cyanosis and no clubbing Skin no rashes, warm and dry Neurologic moves all extremities and awake; no focal motor deficits Psychiatric Orientation: alert, oriented to person, cooperative and + guarded Eye Contact: + fair eye contact Affect: + anxious affect (Repeating "I just need to get going, the cat needs to come with me") Discharge Data Allergies Allergy/AdvReac Type Severity Reaction Status Date / Time Penicillins Allergy Mild Rash Verified 06/27/18 03:57 risedronate sodium AdvReac Mild Nausea Verified 06/27/18 03:57 Consultations Psychiatry Palliative care Ordered Studies 07/18/18 13:19 CT head/brain wo con Stat Chest x-ray Hospital Course (1) Acute renal failure: Cr up to 2.5 on admission Renal failure is prerenal and is likely from poor intake Cr improved to 1.14 with IV fluids which confirms prerenal etiology UO is adequate Her oral intake is still suboptimal likely secondary to her dementia-discussed with her daughter and healthcare power of patent prosecution attorney, Radha, who understands that this is secondary to her progressive dementia Family wishes to not be aggressive with her care at this time and did not check any further blood work or treat her with IV fluids in the future if her kidneys fail again Stable for discharge (2) Hypokalemia: K low at 2.5 on admission replacement potassium given orally and IV fluids and is now resolved (3) Dementia: continue supportive care resides [facility] she is now in the lock down unit, was only there for one day and had to be admi tted for the renal failure should definitely return to locked unit on discharge, she eloped from the personal care side very agitated at times requiring Haldol and Ativan here consulted psychiatry for recommendations, she was just admitted to psych at the end of June-recommended supportive care for dementia, no primary psychiatric diagnosis It is difficult for the patient to take oral medications without encouragement of her family members. Her daughter reports she is able to come to the [facility] and be there for administration of oral medications. She is especially having a lot of agitation and hallucinations and tearfulness at nighttime. The daughter is requesting something to help her sleep. In review of the outpatient neurology notes, it is noted that Seroquel made her overly sedated in the past. Dr. Rosenberg suggested using Risperdal 0.25 mg. -Start Risperdal 0.25 mg p.o. nightly and observe for improvement in symptoms without excessive sedation. Could also add on a morning dose of this but will defer to PCP for further management. (4) CKD (chronic kidney disease): Cr typically ranges 1.5-1.7 which is stage III Cr down to 1.14 which is below baseline -Renally dose medications when appropriate -Avoid nephrotoxins -Family is taking a palliative approach, no need to check any further blood work at this point (5) Atrial fibrillation: Chronic, rate controlled with some tachycardia here with excessive anxiety and agitation She has a history of bradycardia in the past on beta-blockers as per cardiology notes-we will not add this on at this time -Continue amiodarone 200 mg once daily -Continue Pradaxa renally dosed at 75 mill grams p.o. twice daily (6) DVT prophylaxis: Pradaxa Disposition-stable for discharge back to dementia unit at [facility] Palliative care consultation appreciated-family plans on enrolling her in hospice after discharge if she continues to decline Total Time Total Time Spent Total Time Spent (In Minutes): Greater than 30 minutes Total Time Includes: Examination of the Patient, Discharge Planning and Medication Reconciliation Discharge Plan Discharge Items Patient Disposition: Personal [facility] Reason For Visit: ENCEPHALOPATHY,NEHA,HYPOKALEMIA Discharge Diagnosis: Acute encephalopathy, acute kidney injury, hypokalemia Condition: Fair Discharge Goals: Diagnostic testing, Improve disease control, Learn about illness and Therapeutic intervention Activity: Resume your previous activity Bathing: No limitations Exercise/Sports: As tolerated Non-emergency contact: Primary Care Provider Call non-emergency contact if: you have any medication questions and your symptoms worsen Follow-up/Referrals: Kasandra, [Primary Care Provider] - Diet: Regular Addtl Provider Instructions: Maru was admitted with dehydration and acute kidney injury which is now resol morgan. Her potassium levels were replaced as they were low. This is likely secondary to poor oral intake in the setting of her progressing dementia. Risperidone is a medication that can be used at bedtime for agitation and sleep. This is a new medication that was added on. Otherwise, she can be encouraged to drink and eat if she wishes. Her family is interested in pursuing a palliative/hospice approach if she deteriorates again in the future. A referral to hospice agency is recommended after discharge. She can follow-up with her PCP within 1 week after discharge. Prescriptions: New risperidone [Risperdal] 0.25 mg tablet 0.25 mg PO HS Qty: 30 RF: 0 Continued Pradaxa 75 mg Capsule 75 mg PO BID 30 Days Qty: 60 RF: 3 PreserVision AREDS-2 [id number] Capsule 1 tab PO BIDM RF: 0 amiodarone 200 mg tablet 200 mg PO PM RF: 0 ferrous sulfate [iron] 325 mg (65 mg iron) Tablet 325 mg PO QAM RF: 0 calcium carbonate [Calci-Chew] 500 mg calcium (1,250 mg) Tablet,Chewable 1,000 mg PO QAM RF: 0 acetaminophen [Acetaminophen Extra Strength] 500 mg Tablet 1,000 mg PO Q8H PRN (Reason: Pain) RF: 0 Stand-Alone Forms: [facility] Discharge Orders: Discharge Order (Routine); Ordered 07/22/18 Ordered By: Ivette Cloud Admission Data Admit Date/Time: 07/18/18 15:45 Attending Provider: Ivette Cloud Admit Provider: Marvin Rivas Primary Care Provider: Kasandra, Other Providers: Estephania Peralta ; Soheila Migeul ; Katerina Grullon Service: Medical Other Pending Studies at Discharge: No
--- NOTE | 2018-07-22 13:50 | Palliative Care Consultation ---
Date of Consultation July 22, 2018 Assessment & Plan (1) Goals of care, counseling/discussion: -82 year old female with PMH advanced dementia, htn, afib, CKD per record, and others, presented to the hospital with altered mental status from her [facility]. Upon admission, patient's creatinine was 2.51 (baseline per record is 1.3-1.6). Per family, patient has not been eating or drinking much since moving to the [facility] in June. In fact, she has seemed to decline significantly. Patient was in hospital in June with fall and dehydration as well. Her dementia seems to be worsening and her condition deteriorating. Patient's family was questioning whether or not patient would want to continue to come back/forth to hospital for treatment if she is going to continue to decline and not eat/drink at the personal [facility]. Palliative care is consulted. -Met with patient and her daughter/POA, Ann Marie Pedraza, in room 411. Patient is awake but confused. Knows she is in the hospital, but also says, "Let's just go out to lung or something." Does not know why she is in the hospital, was asking to see her sister-- patient does not have a sister, only brothers. -Ann Marie and I stepped out of the room. Ann Marie confirmed that patient has had a significant decline in functional and mental status since she was placed in personal [facility]. Per her description, patient is about 6c on FAST scale, indicating moderately severe dementia. However, with her habits of not eating/drinking, her likelihood of progressing to severe dementia is quite high. -Patient has a living will which states that if she is termina/end-stage, she would not want her life prolonged with heroic measures, or even IV fluids. Ann Marie states that her brother, Gary, who shares POA thinks it is cruel to not give IVF at the end of life. He is currently working, but I did give her my card if Gary wants to call and talk with me. -We discussed end of life care and hospice care. ann marie is interested, but she needs to speak with her five other siblings before making that decision. For now, she is okay with patient returning to [facility]. Ann Marie will continue this conversation with her mother and family. (2) NEHA (acute kidney injury): (3) Dementia: Dementia behavioral disturbance: with behavioral disturbance Dementia type: Alzheimer's disease (4) Altered mental status: Altered mental status type: unspecified Qualified Code(s): R41.82 - Altered mental status, unspecified History of Present Illness Attending Physician: Ivette Cloud MD History of Present Illness This 82 year old female with PMH advanced dementia, htn, afib, CKD per record, and others, presented to the hospital with altered mental status from her personal [facility]. Upon admission, patient's creatinine was 2.51 (baseline per record is 1.3-1.6). Per family, patient has not been eating or drinking much since moving to the [facility] in June. In fact, she has seemed to decline significantly. Patient was in hospital in June with fall and dehydration as well. Her dementia seems to be worsening and her condition deteriorating. Patient's family was questioning whether or not patient would want to continue to come back/forth to hospital for treatment if she is going to continue to decline and not eat/drink at the personal [facility]. Palliative care is consulted. Thank you kindly for this consult. I will follow. Allergies Allergy/AdvReac Type Severity Reaction Status Date / Time Penicillins Allergy Mild Rash Verified 06/27/18 03:57 risedronate sodium AdvReac Mild Nausea Verified 06/27/18 03:57 Home Medications Home Medications Medication Instructions Recorded Confirmed Type amiodarone 200 mg PO PM 04/03/18 07/18/18 History calcium carbonate [Calci-Chew] 1,000 mg PO QAM 04/03/18 07/18/18 History ferrous sulfate [iron] 325 mg PO QAM 04/03/18 07/18/18 History Pradaxa 75 mg PO BID 30 Days #60 cap 06/18/18 07/18/18 Rx PreserVision AREDS-2 1 tab PO BIDM 06/20/18 07/18/18 History acetaminophen [Acetaminophen Extra 1,000 mg PO Q8H PRN 06/26/18 07/18/18 History Strength] risperidone [Risperdal] 0.25 mg PO HS #30 tab 07/22/18 Rx Patient History Medical History Atrial fibrillation (Chronic) Hypertension (Chronic) Vertigo (Resolved) Open fracture of radius (Resolved) Breast cancer, left Heart valve problem Kidney disease sees Dr. Cruz for kidneys per daughter Vascular dementia Surgical History Tubal ligation status (Chronic) History of left mastectomy Family History Mother , Patient claims her mother in her late 40s of blood clots. Deep vein thrombosis Father , Patient claims father in his early 80s from a motor vehicle accident No problems noted. Other No significant family history Social History Preferred Language: Hebrew Communication Ability: Effective Beliefs That Will Affect Care: None Current Living Situation: Prison current occupational status: retired Feels Safe at Home: Yes Smoking Status: Never smoker Hx Alcohol Use: No Hx Substance Use: No Review of Systems Review of Systems: Unobtainable due to cognitive status Patient was tearful during my visit. She did deny pain. Physical Exam Constitutional: + thin and + frail appearing Eyes: PERRL, conjunctivae normal, anicteric sclerae ENMT: external ear and nose normal, oropharynx normal Neck: normal visual inspection Respiratory: normal respiratory effort, lungs clear to auscultation Auscultation: + diminished lung sounds Cardiovascular: RRR, no murmur, no edema Gastrointestinal (Abdomen): normal bowel sounds, soft, nontender, no hepatosplenomegaly Skin: fragile, but intact Neurologic: moves all extremities, awake and + confused Psychiatric: Orientation: alert and oriented to person; + not oriented to place and + not oriented to time Affect: + tearful affect Results & Data Vital Signs (Past 12 Hours) Vital Signs Temp Pulse Pulse Pulse Resp BP BP 07/22/18 13:33 36.4 C L 16 L 117 H 18 143/84 H 119/73 07/22/18 08:11 36.4 C L 125 H 18 119/73 Pulse Ox 07/22/18 13:33 97 07/22/18 08:11 97 Time Spent Midlevel 75 minutes with >50% of time spent at bedside with patient and family discussing condition and GOC.
== END 2018-07-22 14:54 | disposition home or self-care (01) | DRG 683 ==
LOC: ED 12:55 → SUATTDRO 15:45 → 4E 15:45
DX: N18.3 Chronic kidney disease, stage 3 (moderate); Z79.899 Other long term (current) drug therapy; Z91.83 Wandering in diseases classified elsewhere; I48.2 Chronic atrial fibrillation; Z91.81 History of falling; R53.1 Weakness; E86.0 Dehydration; R41.0 Disorientation, unspecified; Z79.01 Long term (current) use of anticoagulants; E83.42 Hypomagnesemia; N17.9 Acute kidney failure, unspecified; G30.9 Alzheimer's disease, unspecified; F02.81 Dementia in other diseases classified elsewhere, unspecified severity, with behavioral disturbance; E87.6 Hypokalemia; Z51.5 Encounter for palliative care; Z66 Do not resuscitate

== ENCOUNTER 2018-07-29 17:09 | Inpatient (IN) ==
[2018-07-29 18:01] LABS: Basophils # (auto) 0.01 K/uL (0-0.2); Basophils % (auto) 0.1 %; Eosinophils # (auto) 0.07 K/uL (0-0.5); Eosinophils % (auto) 0.9 %; Hematocrit (blood only) 32.2 % (37-47); Hemoglobin 11.3 g/dL (12.0-16.0); Immature Granulocytes # (auto) 0.03 K/uL (0.00-0.02); Immature Granulocytes % (auto) 0.4 %; Lymphocytes # (auto) 0.79 K/uL (1.2-3.4); Mean Corpuscular Hgb Conc 35.1 g/dL (32-36); Mean Corpuscular Volume 86.8 fL (80-100); Mean Platelet Volume 10.3 fL (7.4-10.4); Monocytes # (auto) 0.92 K/uL (0.11-0.59); Monocytes % (auto) 11.7 %; Neutrophils # (auto) 6.07 K/uL (1.4-6.5); Neutrophils % (auto) 76.9 %; Platelet Count 186 K/uL (130-400); RDW Coefficient of Variation 16.1 % (11.5-14.5); RDW Standard Deviation 49.7 fL (36.4-46.3); Red Blood Count 3.71 M/uL (4.2-5.4); White Blood Count 7.89 K/uL (4.8-10.8)
[2018-07-29 18:19] LABS: INR 1.3 (0.9-1.1); Prothrombin Time 12.7 Seconds (9.0-12.0)
--- NOTE | 2018-07-29 18:22 | XRay Report ---
XR chest 1V portable CLINICAL HISTORY: Chest Pain dyspnea COMPARISON STUDY: 07/18/2018 FINDINGS: Moderate cardiomegaly. Mild pulmonary vascular prominence. Postoperative changes left axill a. Diaphragms smooth. IMPRESSION: 1. Moderate cardiomegaly. 2. Nonspecific interstitial prominence bilaterally possibly indicative of a component of pulmonary va scular congestion. The above report was generated using voice recognition software. It may contain grammatical, syntax or spelling errors. Electronically signed by: Gary Sanchez M.D. 07/29/2018 6:20 PM
[2018-07-29 18:25] LABS: Albumin Level 3.1 gm/dl (3.4-5.0); BUN Creatinine Ratio 12.3 (10-20); Calcium 8.1 mg/dl (8.5-10.1); Creatinine Clr Calc Pharmacy 13.3 ml/min; Est GFR (African American) 18.5; Magnesium 1.5 mg/dl (1.8-2.4); Potassium 3.1 mmol/L (3.5-5.1)
[2018-07-29 18:36] LABS: Bilirubin,Total 0.9 mg/dl (0.2-1); Globulin 3.2 gm/dl (2.5-4.0); Total Protein 6.3 gm/dl (6.4-8.2); Troponin I 0.049 ng/ml (0-0.045)
[2018-07-29] MEDS ORDERED: HALOPERIDOL LACTATE 5 MG/ML 1 ML VIAL IV STA (18:51)
[2018-07-29] MEDS ORDERED: POTASSIUM CHLORIDE 20 MEQ TABCR PO STA (19:20)
[2018-07-29] MEDS ORDERED: SODIUM CHLORIDE 0.9% 500 ML IV STA (19:20)
[2018-07-29] MEDS ORDERED: MAGNESIUM SULFATE / D5W 1 GM/100 ML BAG IV ONE (19:20)
--- NOTE | 2018-07-29 19:47 | Emergency Department Note ---
Entered by Juni Reilly acting as a scribe for Casey Martin MD History of Present Illness General Chief complaint: Fall Stated complaint: FALL, LUMP ON HEAD Time Seen by Provider: 07/29/18 17:20 Source: family (daughter) History of Present Illness Onset (ago): hour(s) (prior to arrival) Location: head (fall) Pain Consistency: + other (episode) Maximum Pain Intensity: 5 Relieved By: + none Associated symptoms: + denies other symptoms (back pain) and + other (leg swelling, bump on head) The patient is a 82 year old F who presents to the Emergency Room with complaints of an episode of a fall that occurred prior to arrival. The HPI was provided by the patient�s daughter. She states that the patient lives at [facility]. She notes that nobody at [facility] saw the patient fall. She adds that the staff at [facility] found the patient on the ground. She states that the patient is experiencing leg swelling and a bump on her head. The patient denies experiencing any back pain. A review of the patient�s records claudine wed that the patient was discharged from the [facility] ED on the for kidney failure. The records show that the patient was hydrated in the ED. Home Medications Home Medications Medication Instructions Recorded Confirmed Type amiodarone 200 mg PO PM 04/03/18 07/29/18 History calcium carbonate [Calci-Chew] 1,000 mg PO QAM 04/03/18 07/29/18 History ferrous sulfate [iron] 325 mg PO QAM 04/03/18 07/29/18 History Pradaxa 75 mg PO BID 30 Days #60 cap 06/18/18 07/29/18 Rx PreserVision AREDS-2 1 tab PO BIDM 06/20/18 07/29/18 History acetaminophen [Acetaminophen Extra 1,000 mg PO Q8H PRN 06/26/18 07/29/18 History Strength] risperidone [Risperdal] 0.25 mg PO HS #30 tab 07/22/18 07/29/18 Rx Allergies Allergy/AdvReac Type Severity Reaction Status Date / Time Penicillins Allergy Mild Rash Verified 07/29/18 17:47 risedronate sodium AdvReac Mild Nausea Verified 07/29/18 17:47 Past Med/Surg History Medical History Atrial fibrillation (Chronic) Hypertension (Chronic) Vertigo (Resolved) Breast cancer, left Heart valve problem Kidney disease sees Dr. Cruz for kidneys per daughter Vascular dementia Surgical History Tubal ligation status (Chronic) History of left mastectomy Family History Mother , Patient claims her mother in her late 40s of blood clots. Deep vein thrombosis Father , Patient claims father in his early 80s from a motor vehicle accident No problems noted. Other No significant family history Social History Preferred Language: Barbadian Communication Ability: Effective Beliefs That Will Affect Care: None Current Living Situation: Personal Care Facility Current Living Situation Comment: [facility] current occupational status: retired Other Information That Helps Us Care for You: No Feels Safe at Home: Yes Safety Concerns: Feels Safe At This Time Smoking Status: Never smoker Hx Alcohol Use: No Hx Substance Use: No Review of Systems See HPI for pertinent positives & negatives. and A total of 10 systems reviewed and were otherwise negative Physical Exam Vital Signs Vital Signs - 24 hr 07/29/18 17:11 07/29/18 19:24 07/29/18 19:27 Temperature 36.3 C L Temperature Source Oral Sepsis Recent Fever Within 48 Hours No Sepsis New/Unexplained Change in Mental Status No Sepsis Action Taken by Nursing No Action Required Pulse Rate 89 92 H 143 H Pulse Rate from SpO2 Sensor 96 H 106 H Pulse Rhythm Regular Pulse Strength Normal Respiratory Rate 20 19 21 Respiratory Effort / Characteristics Non-Labored Spontaneous Respiratory Depth Normal Respiratory Pattern Regular Blood Pressure 116/73 134/98 Blood Pressure Mean 87 110 Blood Pressure Position Sitting Pulse Oximetry 97 97 75 L Oxygen Delivery Method Room Air 07/29/18 19:30 07/29/18 19:31 07/29/18 19:40 Temperature Temperature Source Sepsis Recent Fever Within 48 Hours Sepsis New/Unexplained Change in Mental Status Sepsis Action Taken by Nursing Pulse Rate 101 H 97 H 92 H Pulse Rate from SpO2 Sensor 102 H 98 H Pulse Rhythm Pulse Strength Respiratory Rate 27 H 21 23 Respiratory Effort / Characteristics Respiratory Depth Respiratory Pattern Blood Pressure 140/93 Blood Pressure Mean 108 Blood Pressure Position Pulse Oximetry 84 L 99 Oxygen Delivery Method 07/29/18 19:51 07/29/18 20:01 07/29/18 20:10 Temperature Temperature Source Sepsis Recent Fever Within 48 Hours Sepsis New/Unexplained Change in Mental Status Sepsis Action Taken by Nursing Pulse Rate 88 91 H 90 Pulse Rate from SpO2 Sensor 91 H 87 87 Pulse Rhythm Pulse Strength Respiratory Rate 16 16 21 Respiratory Effort / Characteristics Respiratory Depth Respiratory Pattern Blood Pressure 136/79 Blood Pressure Mean 98 Blood Pressure Position Pulse Oximetry 99 98 97 Oxygen Delivery Method GENERAL: Awake, pleasantly confused, well appearing, no distress HENT: Normocephalic, atraumatic. TM's normal. Oropharynx unremarkable. EYES: PERRL. EOMI. Normal conjunctiva. Sclera non-icteric. NECK: Supple. No nuchal rigidity. FROM. No JVD or bruit. RESPIRATORY: CTAB CARDIAC: RRR. ABDOMEN: Soft, non distended. No tenderness to palpation. No rebound or guarding. No masses. RECTAL: Deferred. MUSCULOSKELETAL: Unremarkable. No edema. No discoloration. Gross motor strength symmetric. 2 cm contusion hematoma to left occipital scalp. NEURO: Normal sensorium. No sensory or motor deficits noted. 5/5 strength and SILT x4 extremities. Intact finger to nose. SKIN: No rash or jaundice noted. LYMPH: No adenopathy Course 1723: The patient was evaluated in room A4B. A complete history and physical exam was performed. 2009: I reviewed the patient's case with Dr. Adonis Perdue, [facility] Hospitalist. He will evaluate the patient for further management. Consultations Consultation #1: I reviewed the patient's case with Dr. Adonis Perdue, [facility] Hospitalist. He will evaluate the patient for further management. Time: 20:09 Administered Medications Amiodarone HCl (Cordarone) 200 mg PO QPM ANNE Stop: 08/28/18 23:53 Last Admin: 07/30/18 00:47 Dose: 200 mg Documented by: [id number] Dabigatran (Pradaxa) 75 mg PO BID@0900,1800 ANNE Stop: 08/28/18 23:53 Last Admin: 07/30/18 00:47 Dose: 75 mg Documented by: [id number] Risperidone (Risperdal) 0.25 mg PO HS ANNE Stop: 08/28/18 23:53 Last Admin: 07/30/18 00:48 Dose: 0.25 mg Documented by: [id number] Discontinued Medications Haloperidol Lactate (Haldol) 2 mg IV NOW STA Stop: 07/29/18 18:52 Last Admin: 07/29/18 19:15 Dose: 2 mg Documented by: [id number] Magnesium Sulfate/Dextrose (Magnesium Sulfate / D5w) 1 gm in 100 mls @ 100 mls/hr IV ONE ONE Stop: 07/29/18 20:19 Last Infusion: 07/29/18 22:19 Dose: 0 mls/hr Documented by: [id number] Admin: 07/29/18 21:13 Dose: 100 mls/hr Documented by: [id number] Sodium Chloride (Nss) 500 mls @ 125 mls/hr IV .Q4H STA Stop: 07/29/18 23:19 Last Infusion: 07/30/18 01:22 Dose: 0 mls/hr Documented by: [id number] Admin: 07/29/18 21:14 Dose: 125 mls/hr Documented by: [id number] Potassium Chloride (Klor-Con M20) 40 meq PO NOW STA Stop: 07/29/18 19:21 Last Admin: 07/29/18 21:08 Dose: Not Given Documented by: [id number] Potassium Chloride (Klor-Con Pwd) 40 meq PO NOW STA Stop: 07/29/18 21:09 Last Admin: 07/29/18 21:58 Dose: 40 meq Documented by: [id number] Medical Decision Making Differential Diagnosis Differential diagnosis includes: metabolic, infection, hypo/hyperglycemia, electrolyte abnormalities, cardiac sources, intracerebral event, toxicologic, neurologic, as well as others were entertained. Medical Records Attestation: I reviewed the patient's medical records. Home Medications Current Medication List: was personally reviewed by me Laboratory Data Attestation: I reviewed the patient's lab results. Result diagrams: 07/29/18 17:53 07/29/18 17:53 Lab Results 07/29/18 07/29/18 07/29/18 Range/Units 17:53 17:53 17:53 WBC 7.89 (4.8-10.8) K/uL RBC 3.71 L (4.2-5.4) M/uL Hgb 11.3 L (12.0-16.0) g/dL Hct 32.2 L (37-47) % MCV 86.8 (80-100) fL MCH 30.5 (25-34) pg MCHC 35.1 (32-36) g/dL RDW Std Deviation 49.7 H (36.4-46.3) fL RDW Coeff of Griselda 16.1 H (11.5-14.5) % Plt Count 186 (130-400) K/uL MPV 10.3 (7.4-10.4) fL Immature Gran % (Auto) 0.4 % Neut % (Auto) 76.9 % Lymph % (Auto) 10.0 % Pendleton % (Auto) 11.7 % Eos % (Auto) 0.9 % Baso % (Auto) 0.1 % Immature Gran # (Auto) 0.03 H (0.00-0.02) K/uL Neut # (Auto) 6.07 (1.4-6.5) K/uL Lymph # (Auto) 0.79 L (1.2-3.4) K/uL Pendleton # (Auto) 0.92 H (0.11-0.59) K/uL Eos # (Auto) 0.07 (0-0.5) K/uL Baso # (Auto) 0.01 (0-0.2) K/uL PT 12.7 H (9.0-12.0) Seconds INR 1.3 H (0.9-1.1) Sodium 140 (136-145) mmol/L Potassium 3.1 L (3.5-5.1) mmol/L Chloride 105 (98-107) mmol/L Carbon Dioxide 27 (21-32) mmol/L Anion Gap 8.0 (3-11) BUN 33 H (7-18) mg/dl Creatinine 2.66 H (0.6-1.2) mg/dl Est Cr Clr Drug Dosing 13.3 ml/min Est GFR ( Amer) 18.5 Est GFR (Non-Af Amer) 16.0 BUN/Creatinine Ratio 12.3 (10-20) Glucose 83 (70-99) mg/dl Calcium 8.1 L (8.5-10.1) mg/dl Magnesium 1.5 L (1.8-2.4) mg/dl Total Bilirubin 0.9 (0.2-1) mg/dl AST 27 (15-37) U/L ALT 29 (12-78) U/L Alkaline Phosphatase 89 (45-117) U/L Troponin I 0.049 H* (0-0.045) ng/ml NT-Pro-B Natriuret Pep 7101 H (0-1800) pg/ml Total Protein 6.3 L (6.4-8.2) gm/dl Albumin 3.1 L (3.4-5.0) gm/dl Globulin 3.2 (2.5-4.0) gm/dl Albumin/Globulin Ratio 1.0 (0.9-2) Lipase 129 (73-393) U/L Urine Color Urine Appearance (Clear) Urine pH (4.5-7.5) Ur Specific Milton (1.000-1.030) Urine Protein (Negative) Urine Glucose (UA) (Negative) Urine Ketones (Negative) Urine Blood (Negative) Urine Nitrite (Negative) Urine Bilirubin (Negative) Urine Urobilinogen (Negative) Ur Leukocyte Esterase (Negative) Urine WBC (Auto) (0-5) /hpf Urine RBC (Auto) (0-4) /hpf U Hyaline Cast (Auto) (0-5) /lpf U Epithel Cells (Auto) (0-5) /lpf Urine Bacteria (Auto) (Negative) 07/29/18 Range/Units 21:20 WBC (4.8-10.8) K/uL RBC (4.2-5.4) M/uL Hgb (12.0-16.0) g/dL Hct (37-47) % MCV (80-100) fL MCH (25-34) pg MCHC (32-36) g/dL RDW Std Deviation (36.4-46.3) fL RDW Coeff of Griselda (11.5-14.5) % Plt Count (130-400) K/uL MPV (7.4-10.4) fL Immature Gran % (Auto) % Neut % (Auto) % Lymph % (Auto) % Pendleton % (Auto) % Eos % (Auto) % Baso % (Auto) % Immature Gran # (Auto) (0.00-0.02) K/uL Neut # (Auto) (1.4-6.5) K/uL Lymph # (Auto) (1.2-3.4) K/uL Pendleton # (Auto) (0.11-0.59) K/uL Eos # (Auto) (0-0.5) K/uL Baso # (Auto) (0-0.2) K/uL PT (9.0-12.0) Seconds INR (0.9-1.1) Sodium (136-145) mmol/L Potassium (3.5-5.1) mmol/L Chloride (98-107) mmol/L Carbon Dioxide (21-32) mmol/L Anion Gap (3-11) BUN (7-18) mg/dl Creatinine (0.6-1.2) mg/dl Est Cr Clr Drug Dosing ml/min Est GFR ( Amer) Est GFR (Non-Af Amer) BUN/Creatinine Ratio (10-20) Glucose (70-99) mg/dl Calcium (8.5-10.1) mg/dl Magnesium (1.8-2.4) mg/dl Total Bilirubin (0.2-1) mg/dl AST (15-37) U/L ALT (12-78) U/L Alkaline Phosphatase (45-117) U/L Troponin I (0-0.045) ng/ml NT-Pro-B Natriuret Pep (0-1800) pg/ml Total Protein (6.4-8.2) gm/dl Albumin (3.4-5.0) gm/dl Globulin (2.5-4.0) gm/dl Albumin/Globulin Ratio (0.9-2) Lipase (73-393) U/L Urine Color Yellow Urine Appearance Clear (Clear) Urine pH 5.5 (4.5-7.5) Ur Specific Milton 1.015 (1.000-1.030) Urine Protein Negative (Negative) Urine Glucose (UA) Negative (Negative) Urine Ketones Trace H (Negative) Urine Blood Trace H (Negative) Urine Nitrite Negative (Negative) Urine Bilirubin Negative (Negative) Urine Urobilinogen Negative (Negative) Ur Leukocyte Esterase Negative (Negative) Urine WBC (Auto) 1-5 (0-5) /hpf Urine RBC (Auto) 0-4 (0-4) /hpf U Hyaline Cast (Auto) 1-5 (0-5) /lpf U Epithel Cells (Auto) 10-20 H (0-5) /lpf Urine Bacteria (Auto) Negative (Negative) Imaging Data Radiologist's Impression: Radiology results as stated below per my review and the radiologist's interpretation: CT OF THE HEAD WITHOUT CONTRAST CLINICAL HISTORY: fall pain COMPARISON STUDY: Head CT July 18, 2018. CT DOSE: 537.48 mGy.cm TECHNIQUE: Helical axial images of the head were obtained without IV contrast. Automated exposure control was utilized for the study. A dose lowering flynn hnique was utilized adhering to the principles of ALARA. FINDINGS: No acute intracranial hemorrhage, midline shift or mass effect is present. Ventricular system is stable. The basilar cisterns are patent. There are no extra-axial collections. There is moderate atrophy and moderate presumed small vessel disease. There are no findings to suggest acute dural sinus thrombosis or acute territorial infarct. There is no calvarial fracture. Secretions within the right maxillary sinus are noted possible air-fluid level. IMPRESSION: 1. No acute intracranial findings. 2. No calvarial fracture. 3. Secretions within the right maxillary sinus with a possible air-fluid level. Electronically signed by: Hans Mancini M.D. 07/29/2018 8:48 PM XR chest 1V portable CLINICAL HISTORY: Chest Pain dyspnea COMPARISON STUDY: 07/18/2018 FINDINGS: Moderate cardiomegaly. Mild pulmonary vascular prominence. Postoperative changes left axilla. Diaphragms smooth. IMPRESSION: 1. Moderate cardiomegaly. 2. Nonspecific interstitial prominence bilaterally possibly indicative of a component of pulmonary vascular congestion. The above report was generated using voice recognition software. It may contain grammatical, syntax or spelling errors. Electronically signed by: Gary Sanchez M.D. 07/29/2018 6:20 PM ECG Data Attestation: I personally reviewed and interpreted this ECG as follows: Indication: other (fall) Rate (beats per minute): 99 Rhythm: atrial flutter (with a variable AV block) Findings: + nonspecific-ST abn and + RBBB (incomplete) Comparison ECG Date: from (07/18/18) Change: no significant change Blood Pressure Blood Pressure Findings: Normal blood pressure Blood Pressure Disposition: did not require urgent referral MDM Narrative The patient is a pleasant 82 y/o woman with a pmhx of dementia, afib, CKD who presents to the emergency department accompanied by her daughter for evaluation after unwitnessed fall [facility] per HPI. On arrival the patient is in NAD, AFVSS. She is pleasantly confused. No focal neuro deficits. EKG with aflutter, similar to prior. CXR with vascular congestion. Patient required small dose of Haldol to obtain CT as she became combative. Subsequently, CT head negative ICH. WBC and platelets wnl. H/H within patient's prior range of values. Chemistry without acidosis. Cr. 2.6, which is recurrence of patients acute on chronic gely al failure. Potassium 3.1 and Magnesium 1.5 with repletion provided. Troponin 0.49, marginally increased from prior value. BNP 7K without prior value for comparison. UA negative for infection. Given patient's recurrence of Acute on chronic renal failure and electrolyte abnormalites, reasonable to admit for further management. Case was discussed with Dr. Perdue, [facility] hospitalist, who will evaluate the patient for admission. Impression & Plan Acute on chronic renal failure, Hypomagnesemia, Hypokalemia Discharge Plan Visit Data *Final* Discharge Date/Time: 07/29/18 23:29 Chief Complaint: Fall Stated Complaint: FALL, LUMP ON HEAD ED Provider: Casey Martin Discharge Problem: Acute on chronic renal failure, Hypomagnesemia, Hypokalemia Patient Disposition: Admitted As Inpatient Discharge Instructions Interventions: ED Discharge Assessment Last Done: 07/29/18 23:29 Discharge Problem: Acute on chronic renal failure Qualifiers: Acute renal failure type: unspecified Chronic kidney disease stage: unspecified stage Qualified Code(s): N17.9 - Acute kidney failure, unspecified The scribe's documentation has been prepared under my direction and personally reviewed by me in its entirety. I confirm that the note above accurately reflects all work, treatment, procedures, and medical decision making performed by me.
--- NOTE | 2018-07-29 20:49 | CT Scan Report ---
CT OF THE HEAD WITHOUT CONTRAST CLINICAL HISTORY: fall pain COMPARISON STUDY: Head CT July 18, 2018. CT DOSE: 537.48 mGy.cm TECHNIQUE: Helical axial images of the head were obtained without IV contrast. Automated exposure con trol was utilized for the study. A dose lowering technique was utilized adhering to the principles o f ALARA. FINDINGS: No acute intracranial hemorrhage, midline shift or mass effect is present. Ventricular syst em is stable. The basilar cisterns are patent. There are no extra-axial collections. There is moderat e atrophy and moderate presumed small vessel disease. There are no findings to suggest acute dural si nus thrombosis or acute territorial infarct. There is no calvarial fracture. Secretions within the ri ght maxillary sinus are noted possible air-fluid level. IMPRESSION: 1. No acute intracranial findings. 2. No calvarial fracture. 3. Secretions within the right maxillary sinus with a possible air-fluid level. Electronically signed by: Hans Mancini M.D. 07/29/2018 8:48 PM
[2018-07-29] MEDS ORDERED: POTASSIUM CHLORIDE PWD 20 MEQ PACK PO STA (21:08)
[2018-07-29 21:44] LABS: Appearance Urine Clear (Clear); Bacteria Urine Automated Negative (Negative); Bilirubin Urine Negative (Negative); Blood Urine Trace (Negative); Color Urine Yellow; Glucose Urine UA Negative (Negative); Ketones Urine Trace (Negative); Leukocyte Esterase Urine Negative (Negative); Nitrite Urine Negative (Negative); Protein Urine Negative (Negative); RBC Urine Automated 0-4 /hpf (0-4); Specific Gravity Urine 1.015 (1.000-1.030); Urobilinogen Urine Negative (Negative); pH Urine 5.5 (4.5-7.5)
--- NOTE | 2018-07-29 22:45 | History & Physical Report ---
Date of Service July 29, 2018 Assessment & Plan (1) Acute on chronic renal failure: Patient with same presentation as at previous admission from 07/18- 07/22. Creatinine upon admission on 07/18 was 2.51, and upon discharge to [facility] personal nursing home on 07/22 was 1.14. Creatinine upon admission today is 2.66. We will again hydrate with normal saline, and follow serial laboratories. Present on Admission?: Yes (2) Dementia: Dementia has been progressive over the past months. Palliative care consult was made at last visit, and will be reconsulted again to discuss goals of care with family. Present on Admission?: Yes (3) Atrial fibrillation: Continuing on amiodarone and Pradaxa. Present on Admission?: Yes (4) Hyperlipidemia: No longer on medications. Present on Admission?: Yes History of Present Illness Chief Complaint: The patient presents to [facility] emergency department with altered mental state from her personal nursing home. [facility] The patient is an 82-year-old female with a past medical history including advanced dementia, hypertension, atrial fibrillation and recent hospitalization from 07/18-07/22 with very similar presentation of unexplained decreased oral intake, leading to acute kidney injury, with creatinine upon entry 2.51, and upon discharge was 1.14. The patient herself is confused and disoriented, and is unable to contribute to her HPI or review of systems. Allergies Allergy/AdvReac Type Severity Reaction Status Date / Time Penicillins Allergy Mild Rash Verified 07/29/18 17:47 risedronate sodium AdvReac Mild Nausea Verified 07/29/18 17:47 Home Medications Home Medications Medication Instructions Recorded Confirmed Type amiodarone 200 mg PO PM 04/03/18 07/29/18 History calcium carbonate [Calci-Chew] 1,000 mg PO QAM 04/03/18 07/29/18 History ferrous sulfate [iron] 325 mg PO QAM 04/03/18 07/29/18 History Pradaxa 75 mg PO BID 30 Days #60 cap 06/18/18 07/29/18 Rx PreserVision AREDS-2 1 tab PO BIDM 06/20/18 07/29/18 History acetaminophen [Acetaminophen Extra 1,000 mg PO Q8H PRN 06/26/18 07/29/18 History Strength] risperidone [Risperdal] 0.25 mg PO HS #30 tab 07/22/18 07/29/18 Rx Past Med/Surg History Medical History Atrial fibrillation (Chronic) Hypertension (Chronic) Vertigo (Resolved) Breast cancer, left Heart valve problem Kidney disease sees Dr. Cruz for kidneys per daughter Vascular dementia Surgical History Tubal ligation status (Chronic) History of left mastectomy Family History Mother , Patient claims her mother in her late 40s of blood clots. Deep vein thrombosis Father , Patient claims father in his early 80s from a motor vehicle accident No problems noted. Other No significant family history Social History Preferred Language: Lithuanian Communication Ability: Effective Beliefs That Will Affect Care: None Current Living Situation: Personal Care Facility Current Living Situation Comment: [facility] current occupational status: retired Other Information That Helps Us Care for You: No Feels Safe at Home: Yes Safety Concerns: Feels Safe At This Time Smoking Status: Never smoker Hx Alcohol Use: No Hx Substance Use: No Review of Systems Review of Systems: Patient is unable to contribute to review of systems due to altered mental state and baseline dementia Physical Exam Physical Exam: The patient is awake, confused and disoriented well developed, lying in bed and in no acute distress. HEENT--PERRL, EOMI, inner canthi with yellow-green discharge bilaterally. Neck--supple. No JVD. No bruits. Thyroid normal, trachea midline, no adenopathy. Heart--normal S1 and S2. No murmurs, rubs or gallops. Lungs--clear bilaterally, no respiratory distress, no accessory muscle use. Abdomen--normal bowel sounds and soft. Nontender. Nondistended. Extremities--no cyanosis or clubbing. No edema. There are good distal pulses b/l. Dermatologic--normal skin turgor, normal color, no abnormal lymph nodes, no rash. Neurologic--cranial nerves II through XII grossly intact. Rheumatologic--normal range of motion. Psychiatric--confused and disoriented Results & Data Vital Signs (Past 12 Hours) Vital Signs Temp Pulse Resp BP Pulse Ox 07/29/18 20:10 90 21 97 07/29/18 20:01 91 H 16 136/79 98 07/29/18 19:51 88 16 99 07/29/18 19:40 92 H 23 99 07/29/18 19:31 97 H 21 140/93 84 L 07/29/18 19:30 101 H 27 H 07/29/18 19:27 143 H 21 75 L 07/29/18 19:24 92 H 19 134/98 97 07/29/18 17:11 97.3 F L 89 20 116/73 97 Laboratory Results Laboratory Results WBC 7.89 K/uL (4.8-10.8) 07/29/18 17:53 RBC 3.71 M/uL (4.2-5.4) L 07/29/18 17:53 Hgb 11.3 g/dL (12.0-16.0) L 07/29/18 17:53 Hct 32.2 % (37-47) L 07/29/18 17:53 MCV 86.8 fL (80-100) 07/29/18 17:53 MCH 30.5 pg (25-34) 07/29/18 17:53 MCHC 35.1 g/dL (32-36) 07/29/18 17:53 RDW Std Deviation 49.7 fL (36.4-46.3) H 07/29/18 17:53 RDW Coeff of Griselda 16.1 % (11.5-14.5) H 07/29/18 17:53 Plt Count 186 K/uL (130-400) 07/29/18 17:53 MPV 10.3 fL (7.4-10.4) 07/29/18 17:53 Immature Gran % (Auto) 0.4 % 07/29/18 17:53 Neut % (Auto) 76.9 % 07/29/18 17:53 Lymph % (Auto) 10.0 % 07/29/18 17:53 [place] % (Auto) 11.7 % 07/29/18 17:53 Eos % (Auto) 0.9 % 07/29/18 17:53 Baso % (Auto) 0.1 % 07/29/18 17:53 Immature Gran # (Auto) 0.03 K/uL (0.00-0.02) H 07/29/18 17:53 Neut # (Auto) 6.07 K/uL (1.4-6.5) 07/29/18 17:53 Lymph # (Auto) 0.79 K/uL (1.2-3.4) L 07/29/18 17:53 [place] # (Auto) 0.92 K/uL (0.11-0.59) H 07/29/18 17:53 Eos # (Auto) 0.07 K/uL (0-0.5) 07/29/18 17:53 Baso # (Auto) 0.01 K/uL (0-0.2) 07/29/18 17:53 PT 12.7 Seconds (9.0-12.0) H 07/29/18 17:53 INR 1.3 (0.9-1.1) H 07/29/18 17:53 Sodium 140 mmol/L (136-145) 07/29/18 17:53 Potassium 3.1 mmol/L (3.5-5.1) L 07/29/18 17:53 Chloride 105 mmol/L (98-107) 07/29/18 17:53 Carbon Dioxide 27 mmol/L (21-32) 07/29/18 17:53 8.0 (3-11) 07/29/18 17:53 BUN 33 mg/dl (7-18) H 07/29/18 17:53 2.66 mg/dl (0.6-1.2) H 07/29/18 17:53 Est Cr Clr Drug Dosing 13.3 ml/min 07/29/18 17:53 Est GFR ( Amer) 18.5 07/29/18 17:53 Est GFR (Non-Af Amer) 16.0 07/29/18 17:53 12.3 (10-20) 07/29/18 17:53 Glucose 83 mg/dl (70-99) 07/29/18 17:53 Calcium 8.1 mg/dl (8.5-10.1) L 07/29/18 17:53 Magnesium 1.5 mg/dl (1.8-2.4) L 07/29/18 17:53 0.9 mg/dl (0.2-1) 07/29/18 17:53 AST 27 U/L (15-37) 07/29/18 17:53 ALT 29 U/L (12-78) 07/29/18 17:53 89 U/L (45-117) 07/29/18 17:53 0.049 ng/ml (0-0.045) H* 07/29/18 17:53 NT-Pro-B Natriuret Pep 7101 pg/ml (0-1800) H 07/29/18 17:53 6.3 gm/dl (6.4-8.2) L 07/29/18 17:53 3.1 gm/dl (3.4-5.0) L 07/29/18 17:53 3.2 gm/dl (2.5-4.0) 07/29/18 17:53 1.0 (0.9-2) 07/29/18 17:53 129 U/L (73-393) 07/29/18 17:53 Yellow 07/29/18 21:20 Clear (Clear) 07/29/18 21:20 5.5 (4.5-7.5) 07/29/18 21:20 Ur Specific [place] 1.015 (1.000-1.030) 07/29/18 21:20 Negative (Negative) 07/29/18 21:20 Negative (Negative) 07/29/18 21:20 Trace (Negative) H 07/29/18 21:20 Trace (Negative) H 07/29/18 21:20 Negative (Negative) 07/29/18 21:20 Negative (Negative) 07/29/18 21:20 Negative (Negative) 07/29/18 21:20 Ur Leukocyte Esterase Negative (Negative) 07/29/18 21:20 1-5 /hpf (0-5) 07/29/18 21:20 0-4 /hpf (0-4) 07/29/18 21:20 U Hyaline Cast (Auto) 1-5 /lpf (0-5) 07/29/18 21:20 U Epithel Cells (Auto) 10-20 /lpf (0-5) H 07/29/18 21:20 Negative (Negative) 07/29/18 21:20 Negative (Negative) 07/30/18 01:00 Diagnostic Findings [facility], [place] [phone] CT Scan Report Patient: Manuel MORA Date: 07/29/18 MR#: [id number]: [address] Acct ID:[id number]: Date: [address] [place] [address] Zip: [place] [address] Age: 82Location: ED Sex: F Room/Bed: Att Phy: Diagnosis: FALL, LUMP ON HEAD Livier Phy: ElmcroftService Date: 07/29/18 Fam Phy: Interpreting Phy: Hans Mancini MD Admit Phy: Ordering Phy: Casey Martin M.D. cc: ~ CT OF THE HEAD WITHOUT CONTRAST CLINICAL HISTORY: fall pain COMPARISON STUDY: Head CT July 18, 2018. CT DOSE: 537.48 mGy.cm TECHNIQUE: Helical axial images of the head were obtained without IV contrast. Automated exposure control was utilized for the study. A dose lowering technique was utilized adhering to the principles of ALARA. FINDINGS: No acute intracranial hemorrhage, midline shift or mass effect is present. Ventricular system is stable. The basilar cisterns are patent. There are no extra-axial collections. There is moderate atrophy and moderate presumed small vessel disease. There are no findings to suggest acute dural sinus thrombosis or acute territorial infarct. There is no calvarial fracture. Sec retions within the right maxillary sinus are noted possible air-fluid level. IMPRESSION: 1. No acute intracranial findings. 2. No calvarial fracture. 3. Secretions within the right maxillary sinus with a possible air-fluid level. Electronically signed by: Hans Mancini M.D. 07/29/2018 8:48 PM Dictated: 07/29/182042 Transcribed: 07/29/182042 [facility], [place] [phone] XRay Report Patient: Manuel MORA Date: 07/29/18 MR#: [id number]: [address] Acct ID:[id number]: Date: [address] [place] [address] Zip: [place] [address] Age: 82Location: ED Sex: F Room/Bed: Att Phy: Diagnosis: FALL, LUMP ON HEAD Livier Phy: ElmcroftService Date: 07/29/18 Fam Phy: Interpreting Phy: Gary Sanchez MD Admit Phy: Ordering Phy: Casey Martin M.D. cc: ~ XR chest 1V portable CLINICAL HISTORY: Chest Pain dyspnea COMPARISON STUDY: 07/18/2018 FINDINGS: Moderate cardiomegaly. Mild pulmonary vascular prominence. Postoperative changes left axilla. Diaphragms smooth. IMPRESSION: 1. Moderate cardiomegaly. 2. Nonspecific interstitial prominence bilaterally possibly indicative of a component of pulmonary vascular congestion. The above report was generated using voice recognition software. It may contain grammatical, syntax or spelling errors. Electronically signed by: Gary Sanchez M.D. 07/29/2018 6:20 PM Dictated: 07/29/18 1820 Code Status & VTE Plan Code Status DNR VTE Prophylaxis Plan VTE Prophylaxis will be ordered: Yes (1) Acute on chronic renal failure Acute renal failure type: unspecified Chronic kidney disease stage: unspecified stage Qualified Code(s): N17.9 - Acute kidney failure, unspecified; N18.9 - Chronic kidney disease, unspecified (2) Dementia Dementia behavioral disturbance: with behavioral disturbance Dementia type: Alzheimer's disease (3) Hyperlipidemia Hyperlipidemia type: unspecified Qualified Code(s): E78.5 - Hyperlipidemia, unspecified
[2018-07-29] MEDS ORDERED: POLYETHYLENE (MIRALAX) 17 GM PACK PO PRN (23:54)
[2018-07-29] MEDS ORDERED: MAGNESIUM HYDROXIDE SUSP 30 ML UDC PO PRN (23:54)
[2018-07-29] MEDS ORDERED: ACETAMINOPHEN 500 MG TAB PO PRN (23:54)
[2018-07-29] MEDS ORDERED: ALUMINUM/MAGNESIUM SUSP 30 ML UDC PO PRN (23:54)
[2018-07-30] MEDS: AMIODARONE 200 MG TAB PO SCH ×2 (00:47→20:43)
[2018-07-30] MEDS: DABIGATRAN ETEXILATE 75 MG CAP PO SCH ×3 (00:47→17:54)
[2018-07-30] MEDS: risperiDONE 0.5 MG TABLET PO SCH ×2 (00:48→20:43)
[2018-07-30] MEDS ORDERED: HALOPERIDOL LACTATE 5 MG/ML 1 ML VIAL IV STA (03:14)
--- NOTE | 2018-07-30 06:32 | Ultrasound Report ---
US venous doppler LE BI HISTORY: Pain. Edema. BLE swelling COMPARISON STUDY: None. FINDINGS: There is normal compressibility, flow, and augmentation within the bilateral lower extremit y deep venous systems. IMPRESSION: No DVT within the right or left lower extremity. The above report was generated using voice recognition software. It may contain grammatical, syntax or spelling errors. Electronically signed by: Gary Sanchez M.D. 07/30/2018 6:31 AM
[2018-07-30] MEDS: CEROVITE ADV FORMULA TAB PO SCH ×2 (09:27→17:54)
[2018-07-30] MEDS: CALCIUM CARBONATE 500 MG CHEWABLE TAB PO SCH (09:28)
[2018-07-30] MEDS: FERROUS SULFATE 325 MG TAB PO SCH (09:28)
[2018-07-30] MEDS: CIPROFLOXACIN HCL 0.3% OP SOLN 2.5 ML BTL OP SCH ×4 (09:28→20:43)
--- NOTE | 2018-07-30 10:21 | Palliative Care Consultation ---
Date of Consultation July 30, 2018 Assessment & Plan (1) Goals of care, counseling/discussion: -82 year old female with PMH advanced dementia, htn, afib, CKD per record, and others, presented to the hospital with altered mental status from her personal longterm. Upon admission, patient's creatinine was 2.66 (baseline per record is 1.3-1.6). Patient was just discharged on 07/18 after a brief stay for dehydration, essentially the same exact complaint, at which time her creatinine was 1.14. Per patient's daughter/POA Ann Marie Felicianoroseann, patient stopped eating and drinking again once she returned to [facility]. Palliative care was consulted during previous admission on the day of discharge, and Ann Marie stated at that time that she was interested in palliative/hospice, but her brother, Gary, who shares POA was not on board. Palliative care is reconsulted now to continue discussion of GOC. -Met with patient and daughter, Ann Marie, in room 205. Patient is awake and alert, but very confused. She is somewhat agitated, would not take pills, threw her pills across the room. -Ann Marie and I then spoke outside of room. Ann Marie stated that her mother continues to decline. She essentially has not eaten at all since being discharged, and was barely drinking anything. She believes her mom is ready to . Again, she reiterated that since her mom moved from her home to the [facility], she has rapidly declined. -I did review patient's living will which states that at the end of life, she does not want ANY life prolonging measures such as CPR, intubation, artificial feeding OR hydration, etc (copy is in EMR). Patient's son Gary is struggling with not sending patient back to the hospital for IVF. Ann Marie states that her mother was horrified in the ED last night, was crying and asking to be left alone. -WE talked for quite a long time about how to speak with Gary and other family members in regards to end of life issues. I gave some reading materials to Ann Marie to share with her family-- Gone From My Sight, The Eleventh Hour, and Hard Choices for [place] People. -For now, IV hydration continues. Patient could be transferred out of telemetry unit. -Further plan and GOC to follow. -FAST score 6d-6e. -PPS 40% at best, although I'm not sure she could get out of bed at this point. -Came from [facility], who will need to determine if they can take patient back. It may depend on what the goals of treatment are. (2) Dementia: Dementia behavioral disturbance: with behavioral disturbance Dementia type: Alzheimer's disease (3) Acute on chronic renal failure: Acute renal failure type: unspecified Chronic kidney disease stage: unspecified stage Qualified Code(s): N17.9 - Acute kidney failure, unspecified; N18.9 - Chronic kidney disease, unspecified (4) Hypomagnesemia: (5) Hypokalemia: History of Present Illness Attending Physician: Marvin Rivas, History of Present Illness This 82 year old female with PMH advanced dementia, htn, afib, CKD per record, and others, presented to the hospital with altered mental status from her personal longterm. Upon admission, patient's creatinine was 2.66 (baseline per record is 1.3-1.6). Patient was just discharged on 07/18 after a brief stay for dehydration, essentially the same exact complaint, at which time her creatinine was 1.14. Per patient's daughter/POA Ann Marie Lopez, patient stopped eating and drinking again once she returned to [facility]. Palliative care was consulted during previous admission on the day of discharge, and Ann Marie stated at that time that she was interested in palliative/hospice, but her brother, Gary, who shares POA was not on board. Palliative care is reconsulted now to continue discussion of GOC. Thank you kindly for this consult. I will follow. Allergies Allergy/AdvReac Type Severity Reaction Status Date / Time Penicillins Allergy Mild Rash Verified 07/29/18 17:47 risedronate sodium AdvReac Mild Nausea Verified 07/29/18 17:47 Home Medications Home Medications Medication Instructions Recorded Confirmed Type amiodarone 200 mg PO PM 04/03/18 07/29/18 History calcium carbonate [Calci-Chew] 1,000 mg PO QAM 04/03/18 07/29/18 History ferrous sulfate [iron] 325 mg PO QAM 04/03/18 07/29/18 History Pradaxa 75 mg PO BID 30 Days #60 cap 06/18/18 07/29/18 Rx PreserVision AREDS-2 1 tab PO BIDM 06/20/18 07/29/18 History acetaminophen [Acetaminophen Extra 1,000 mg PO Q8H PRN 06/26/18 07/29/18 History Strength] risperidone [Risperdal] 0.25 mg PO HS #30 tab 07/22/18 07/29/18 Rx Patient History Medical History Atrial fibrillation (Chronic) Hypertension (Chronic) Vertigo (Resolved) Breast cancer, left Heart valve problem Kidney disease sees Dr. Cruz for kidneys per daughter Vascular dementia Surgical History Tubal ligation status (Chronic) History of left mastectomy Family History Mother , Patient claims her mother in her late 40s of blood clots. Deep vein thrombosis Father , Patient claims father in his early 80s from a motor vehicle accident No problems noted. Other No significant family history Social History Preferred Language: Maori Communication Ability: Effective Beliefs That Will Affect Care: None Current Living Situation: Personal Care Facility Current Living Situation Comment: [facility] current occupational status: retired Other Information That Helps Us Care for You: No Feels Safe at Home: Yes Safety Concerns: Feels Safe At This Time Smoking Status: Never smoker Hx Alcohol Use: No Hx Substance Use: No Review of Systems Review of Systems: Unobtainable due to cognitive status (Patient did deny any pain or discomfort) Physical Exam Physical Exam: Constitutional + thin and + frail appearing Eyes PERRL, conjunctivae normal, anicteric sclerae ENMT external ear and nose normal, oropharynx normal Neck normal visual inspection Respiratory normal respiratory effort, lungs clear to auscultation Auscultation: + diminished lung sounds Cardiovascular RRR, no murmur, no edema Gastrointestinal (Abdomen) normal bowel sounds, soft, nontender, no hepatosplenomegaly Skin fragile, but intact Neurologic moves all extremities, awake and + confused Psychiatric Orientation: alert and oriented to person; + not oriented to place and + not oriented to time Affect: + tearful affect Results & Data Vital Signs (Past 12 Hours) Vital Signs Temp Pulse Pulse Resp BP BP Pulse Ox 07/30/18 07:32 36.4 C L 94 H 15 96/65 L 98 07/30/18 03:11 88 07/29/18 23:40 36.4 C L 97 H 18 126/71 97 07/29/18 23:29 86 20 135/87 96 Time Spent Midlevel 105 minutes with >50% of time spent at bedside with patient and family discussing condition and GOC.
[2018-07-30] MEDS: NSS + 20MEQ KCL 20 MEQ/1,000 ML BAG IV SCH (10:38)
--- NOTE | 2018-07-30 13:50 | Hospitalist Progress Note ---
Date of Service July 30, 2018 Assessment & Plan (1) Acute on chronic renal failure: Patient with same presentation as at previous admission from 07/18- 07/22. Creatinine upon admission on 07/18 was 2.51, and upon discharge to [facility] personal longterm on 07/22 was 1.14. Creatinine upon admission today is 2.66. this is prerenal, patient is clinically dry on exam will give NSS + K at 100cc/hr and follow labs, follow UO HYPOKALEMIA: K low at 3.[address] 20mEq of K in fluids she received some replacement in the ED (2) Dementia: Dementia has been progressive over the past months. patient cannot maintain hydration and nutrition cannot care for her ADLs she is elopement and fall risk, danger to herself and her health goal of this admission will be to determine plan for after discharge ideally she should be on hospice with plans to remain out of the hospital, keep her comfortable family will determine what they want to do palliative care on board to help with decisions (3) Atrial fibrillation: Continuing on amiodarone and Pradaxa. transfer off medical floor (4) Hyperlipidemia: No longer on medications. note that 35 minutes spent with patient today, spoke with daughter at the bedside for quite some time Subjective patient calm today with her daughter at the bedside did not want breakfast keeps asking about tomato soup, fixated on them bringing it to her, asked at least 20 times she denies chest pain, dyspnea, abdominal pain admits to mild headache her daughter says her eyes look better with the drops reviewed labs, Cr elevated on admission will give gentle fluids since not eating or drinking her daughter says that since she was discharged she has not been eating or drinking at [facility] she refuses, says the food is terrible, is very anxious explained that the patient keeps returning due to dementia, this is terminal issue we cannot keep admitting her for a few days with IV fluids for her to just return a week later for same problem patient's daughter is on board with hospice but her brother is not, and they share POA discussed with Soheila Zimmer with palliative care we are going to arrange for family meeting to discuss goals of care, hospice, plan for when she is discharged Review of Systems Review of Systems: Unobtainable due to cognitive status Physical Exam Constitutional: WD/WN, vitals as above + thin Eyes: PERRL, conjunctivae normal, anicteric sclerae ENMT: external ear and nose normal, oropharynx normal Neck: trachea midline, no thyromegaly Respiratory: normal respiratory effort, lungs clear to auscultation Cardiovascular: RRR, no murmur, no edema Gastrointestinal (Abdomen): normal bowel sounds, soft, nontender, no hepatosplenomegaly Musculoskeletal: no cyanosis or clubbing, extremities motor strength 5/5 Skin: no rashes, warm and dry Neurologic: patellar DTR's 2+ bilat, sensation intact and PERRL, EOMI, accommodation nl, no face palsy, no dysarthria Psychiatric: Orientation: alert, oriented to person and cooperative; + not oriented to place and + not oriented to time Affect: + anxious affect Mood: + anxious mood Lymphatic: no cervical or axillary lymphadenopathy Results & Data Vital Signs (Past 12 Hours) Vital Signs Temp Pulse Pulse Resp BP BP Pulse Ox 07/30/18 11:58 36.3 C L 90 18 123/77 99 07/30/18 07:32 36.4 C L 94 H 15 96/65 L 98 07/30/18 03:11 88 Laboratory Results Laboratory Results - last 24 hr 07/29/18 07/29/18 07/29/18 17:53 17:53 17:53 WBC 7.89 RBC 3.71 L Hgb 11.3 L Hct 32.2 L MCV 86.8 MCH 30.5 MCHC 35.1 RDW Std Deviation 49.7 H RDW Coeff of Griselda 16.1 H Plt Count 186 MPV 10.3 Immature Gran % (Auto) 0.4 Neut % (Auto) 76.9 Lymph % (Auto) 10.0 [place] % (Auto) 11.7 Eos % (Auto) 0.9 Baso % (Auto) 0.1 Immature Gran # (Auto) 0.03 H Neut # (Auto) 6.07 Lymph # (Auto) 0.79 L [place] # (Auto) 0.92 H Eos # (Auto) 0.07 Baso # (Auto) 0.01 PT 12.7 H INR 1.3 H Sodium 140 Potassium 3.1 L Chloride 105 Carbon Dioxide 27 Anion Gap 8.0 BUN 33 H Creatinine 2.66 H Est Cr Clr Drug Dosing 13.3 Est GFR ( Amer) 18.5 Est GFR (Non-Af Amer) 16.0 BUN/Creatinine Ratio 12.3 Glucose 83 Calcium 8.1 L Magnesium 1.5 L Total Bilirubin 0.9 AST 27 ALT 29 Alkaline Phosphatase 89 Troponin I 0.049 H* NT-Pro-B Natriuret Pep 7101 H Total Protein 6.3 L Albumin 3.1 L Globulin 3.2 Albumin/Globulin Ratio 1.0 Lipase 129 Urine Color Urine Appearance Urine pH Ur Specific [place] Urine Protein Urine Glucose (UA) Urine Ketones Urine Blood Urine Nitrite Urine Bilirubin Urine Urobilinogen Ur Leukocyte Esterase Urine WBC (Auto) Urine RBC (Auto) U Hyaline Cast (Auto) U Epithel Cells (Auto) Urine Bacteria (Auto) Nasal Screen MRSA (PCR) 07/29/18 07/30/18 21:20 01:00 WBC RBC Hgb Hct MCV MCH MCHC RDW Std Deviation RDW Coeff of Griselda Plt Count MPV Immature Gran % (Auto) Neut % (Auto) Lymph % (Auto) [place] % (Auto) Eos % (Auto) Baso % (Auto) Immature Gran # (Auto) Neut # (Auto) Lymph # (Auto) [place] # (Auto) Eos # (Auto) Baso # (Auto) PT INR Sodium Potassium Chloride Carbon Dioxide Anion Gap BUN Creatinine Est Cr Clr Drug Dosing Est GFR ( Amer) Est GFR (Non-Af Amer) BUN/Creatinine Ratio Glucose Calcium Magnesium Total Bilirubin AST ALT Alkaline Phosphatase Troponin I NT-Pro-B Natriuret Pep Total Protein Albumin Globulin Albumin/Globulin Ratio Lipase Urine Color Yellow Urine Appearance Clear Urine pH 5.5 Ur Specific [place] 1.015 Urine Protein Negative Urine Glucose (UA) Negative Urine Ketones Trace H Urine Blood Trace H Urine Nitrite Negative Urine Bilirubin Negative Urine Urobilinogen Negative Ur Leukocyte Esterase Negative Urine WBC (Auto) 1-5 Urine RBC (Auto) 0-4 U Hyaline Cast (Auto) 1-5 U Epithel Cells (Auto) 10-20 H Urine Bacteria (Auto) Negative Nasal Screen MRSA (PCR) Negative Medications Administered Current Inpatient Medications Acetaminophen (Tylenol) 650 mg PO Q4H PRN PRN Reason: Pain or Fever Stop: 08/28/18 23:53 Al Hydrox/Mg Hydrox/Simethicone (Maalox) 15 ml PO Q4H PRN PRN Reason: Dyspepsia Stop: 08/28/18 23:53 Amiodarone HCl (Cordarone) 200 mg PO QPM [facility] Stop: 08/28/18 23:53 Last Admin: 07/30/18 00:47 Dose: 200 mg Documented by: Calcium Carbonate (Tums) 1,000 mg PO QAM [facility] Stop: 08/29/18 08:59 Last Admin: 07/30/18 09:28 Dose: 1,000 mg Documented by: Ciprofloxacin (Ciloxan 0.3% Opth) 1 drops OP QID [facility] Stop: 08/09/18 08:59 Last Admin: 07/30/18 13:11 Dose: 1 drops Documented by: Dabigatran (Pradaxa) 75 mg PO BID@0900,1800 [facility] Stop: 08/28/18 23:53 Last Admin: 07/30/18 09:27 Dose: 75 mg Documented by: Ferrous Sulfate (Feosol) 325 mg PO QAM [facility] Stop: 08/29/18 08:59 Last Admin: 07/30/18 09:28 Dose: 325 mg Documented by: Potassium Chloride/Sodium Chloride (Normal Saline W/20 Meq Kcl) 20 meq in 1,000 mls @ 75 mls/hr IV .[id number] [facility] Stop: 08/29/18 09:29 Last Admin: 07/30/18 10:38 Dose: 75 mls/hr Documented by: Magnesium Hydroxide (Milk Of Magnesia) 30 ml PO Q12H PRN PRN Reason: Constipation Stop: 08/28/18 23:53 Multivitamins/Minerals (Multivitamin W/ Minerals Tab) 1 tab PO BIDM [facility] Stop: 08/29/18 07:59 Last Admin: 07/30/18 09:27 Dose: 1 tab Documented by: Polyethylene Glycol (Miralax Powder Packet) 17 gm PO DAILY PRN PRN Reason: Constipation Stop: 08/28/18 23:53 Risperidone (Risperdal) 0.25 mg PO HS [facility] Stop: 08/28/18 23:53 Last Admin: 07/30/18 00:48 Dose: 0.25 mg Documented by: (1) Acute on chronic renal failure Acute renal failure type: unspecified Chronic kidney disease stage: unspecified stage Qualified Code(s): N17.9 - Acute kidney failure, unspecified; N18.9 - Chronic kidney disease, unspecified (2) Dementia Dementia behavioral disturbance: with behavioral disturbance Dementia type: Alzheimer's disease (3) Hyperlipidemia Hyperlipidemia type: unspecified Qualified Code(s): E78.5 - Hyperlipidemia, unspecified
[2018-07-30] MEDS ORDERED: HALOPERIDOL LACTATE 5 MG/ML 1 ML VIAL IM PRN (21:14)
[2018-07-31] MEDS: NSS + 20MEQ KCL 20 MEQ/1,000 ML BAG IV SCH (00:15)
[2018-07-31 08:47] LABS: Basophils # (auto) 0.01 K/uL (0-0.2); Basophils % (auto) 0.1 %; Eosinophils # (auto) 0.08 K/uL (0-0.5); Eosinophils % (auto) 1.1 %; Hematocrit (blood only) 32.5 % (37-47); Hemoglobin 10.9 g/dL (12.0-16.0); Immature Granulocytes # (auto) 0.02 K/uL (0.00-0.02); Immature Granulocytes % (auto) 0.3 %; Lymphocytes # (auto) 0.88 K/uL (1.2-3.4); Lymphocytes % (auto) 12.3 %; Mean Corpuscular Hgb Conc 33.5 g/dL (32-36); Mean Platelet Volume 10.1 fL (7.4-10.4); Monocytes # (auto) 0.84 K/uL (0.11-0.59); Monocytes % (auto) 11.7 %; Neutrophils # (auto) 5.32 K/uL (1.4-6.5); Neutrophils % (auto) 74.5 %; Platelet Count 186 K/uL (130-400); RDW Coefficient of Variation 16.3 % (11.5-14.5); RDW Standard Deviation 52.1 fL (36.4-46.3); Red Blood Count 3.65 M/uL (4.2-5.4); White Blood Count 7.15 K/uL (4.8-10.8)
[2018-07-31 09:35] LABS: Albumin Globulin Ratio 0.9 (0.9-2); Albumin Level 2.6 gm/dl (3.4-5.0); BUN Creatinine Ratio 16.7 (10-20); Bilirubin,Total 0.8 mg/dl (0.2-1); Calcium 7.8 mg/dl (8.5-10.1); Creatinine Clr Calc Pharmacy 23.9 ml/min; Est GFR (African American) 39.2; Est GFR (Non-African American) 33.8; Globulin 2.9 gm/dl (2.5-4.0); Potassium 3.9 mmol/L (3.5-5.1); Total Protein 5.5 gm/dl (6.4-8.2)
[2018-07-31] MEDS: FERROUS SULFATE 325 MG TAB PO SCH (09:39)
[2018-07-31] MEDS: DABIGATRAN ETEXILATE 75 MG CAP PO SCH ×2 (09:39→17:40)
[2018-07-31] MEDS: CEROVITE ADV FORMULA TAB PO SCH ×2 (09:39→17:45)
[2018-07-31] MEDS: CIPROFLOXACIN HCL 0.3% OP SOLN 2.5 ML BTL OP SCH ×4 (09:40→20:06)
[2018-07-31] MEDS: CALCIUM CARBONATE 500 MG CHEWABLE TAB PO SCH (09:40)
--- NOTE | 2018-07-31 12:24 | Hospitalist Progress Note ---
Date of Service July 31, 2018 Assessment & Plan (1) Acute on chronic renal failure: Patient with same presentation as at previous admission from 07/18- 07/22. Creatinine upon admission on 07/18 was 2.51, and upon discharge to [facility] personal group home on 07/22 was 1.14. Creatinine upon admission was 2.66. this is prerenal, patient is clinically dry on exam will give NSS + K at 100cc/hr and follow labs, follow UO Cr improved to 1.4 today, will stop fluids K up to 3.9, so hypokalemia resolved will remove IV as patient keeps trying to take it out (2) Dementia: Dementia has been progressive over the past months. patient cannot maintain hydration and nutrition cannot care for her ADLs she is elopement and fall risk, danger to herself and her health as discussed in Subjective, long discussion with patient's son Gary on 07/31 spent 15 minutes with him on the phone and 10 minutes on the phone with patient's daughter will plan to transition to hospice care once back at [facility] Case management to reach out to daughter to [facility] hospice agency (3) Atrial fibrillation: Continuing on amiodarone and Pradaxa. patient not taking these medications consistently likely not anticoagulated (4) Hyperlipidemia: No longer on medications. note that 35 minutes spent with patient today, spoke with daughter at the bedside for quite some time (5) Hypokalemia: HYPOKALEMIA: K low at 3.1 on admission improved to 3.9 today with K in fluids stop replacement today Subjective patient confused today, agitated, pulling at IV site reviewed labs, Cr down to 1.4, asked RN to stop fluids an pull the IV so she wouldn't pull it out spoke with Carmen Zimmer with palliative care, the daughter is on board with hospice, the son who is co POA is not quite sure called patient's son PRADEEP Vega, and discussed the situation explained that the driving force behind admission is the patient's dementia and mental illness we cannot fix her dementia and it is only getting worse she has advanced to the point that she cannot carry out ADL and is hardly drinking or eating he expressed his concern that we would be causing her to suffer by essentially starving her or allowing her to from dehydration explained that the patient actually had an advanced directive that stated that she would not want artificial hydration with IV fluids also, explained that she can eat or drink if she wants, in no way are we with holding those things discussed that we are actually prolonging her suffering by continuing to admit her and hydrate her with IV fluids Gary wants to be sure that she will not suffer explained that we can involve hospice to make sure that she has support at home that she needs discussed with palliative care and casework supervisor, they will reach out to the daughter to pick a hospice agency plan to keep patient here today, want to complete a POLST form prior to disch arge and make sure we have a plan in place, discuss the limited circumstances in which she would return to the hospital Review of Systems Review of Systems: Unobtainable due to cognitive status Physical Exam Constitutional: WD/WN, vitals as above + thin Eyes: PERRL, conjunctivae normal, anicteric sclerae ENMT: external ear and nose normal, oropharynx normal Neck: trachea midline, no thyromegaly Respiratory: normal respiratory effort, lungs clear to auscultation Cardiovascular: RRR, no murmur, no edema Gastrointestinal (Abdomen): normal bowel sounds, soft, nontender, no hepatosplenomegaly Musculoskeletal: no cyanosis or clubbing, extremities motor strength 5/5 Skin: no rashes, warm and dry Neurologic: patellar DTR's 2+ bilat, sensation intact and PERRL, EOMI, accomm odation nl, no face palsy, no dysarthria Psychiatric: Orientation: alert, oriented to person and + guarded; + not oriented to place and + not oriented to time Eye Contact: + fair eye contact Affect: + anxious affect and + tearful affect Mood: + anxious mood Lymphatic: no cervical or axillary lymphadenopathy Results & Data Vital Signs (Past 12 Hours) Vital Signs Temp Pulse Resp BP Pulse Ox 07/31/18 07:21 36.4 C L 91 H 18 121/82 100 Laboratory Results Laboratory Results - last 24 hr 07/31/18 07/31/18 08:34 08:34 WBC 7.15 RBC 3.65 L Hgb 10.9 L Hct 32.5 L MCV 89.0 MCH 29.9 MCHC 33.5 RDW Std Deviation 52.1 H RDW Coeff of Griselda 16.3 H Plt Count 186 MPV 10.1 Immature Gran % (Auto) 0.3 Neut % (Auto) 74.5 Lymph % (Auto) 12.3 [place] % (Auto) 11.7 Eos % (Auto) 1.1 Baso % (Auto) 0.1 Immature Gran # (Auto) 0.02 Neut # (Auto) 5.32 Lymph # (Auto) 0.88 L [place] # (Auto) 0.84 H Eos # (Auto) 0.08 Baso # (Auto) 0.01 Sodium 145 Potassium 3.9 D Chloride 112 H Carbon Dioxide 24 Anion Gap 9.0 BUN 24 H Creatinine 1.43 H D Est Cr Clr Drug Dosing 23.9 Est GFR ( Amer) 39.2 Est GFR (Non-Af Amer) 33.8 BUN/Creatinine Ratio 16.7 Glucose 90 Calcium 7.8 L Total Bilirubin 0.8 AST 20 ALT 24 Alkaline Phosphatase 81 Total Protein 5.5 L Albumin 2.6 L Globulin 2.9 Albumin/Globulin Ratio 0.9 Medications Administered Current Inpatient Medications Acetaminophen (Tylenol) 650 mg PO Q4H PRN PRN Reason: Pain or Fever Stop: 08/28/18 23:53 Al Hydrox/Mg Hydrox/Simethicone (Maalox) 15 ml PO Q4H PRN PRN Reason: Dyspepsia Stop: 08/28/18 23:53 Amiodarone HCl (Cordarone) 200 mg PO QPM [facility] Stop: 08/28/18 23:53 Last Admin: 07/30/18 20:43 Dose: Not Given Documented by: Calcium Carbonate (Tums) 1,000 mg PO QAM [facility] Stop: 08/29/18 08:59 Last Admin: 07/31/18 09:40 Dose: Not Given Documented by: Ciprofloxacin (Ciloxan 0.3% Opt) 1 drops OP QID [facility] Stop: 08/09/18 08:59 Last Admin: 07/31/18 09:40 Dose: 1 drops Documented by: Dabigatran (Pradaxa) 75 mg PO BID@0900,1800 [facility] Stop: 08/28/18 23:53 Last Admin: 07/31/18 09:39 Dose: Not Given Documented by: Ferrous Sulfate (Feosol) 325 mg PO QAM [facility] Stop: 08/29/18 08:59 Last Admin: 07/31/18 09:39 Dose: Not Given Documented by: Haloperidol Lactate (Haldol) 0.5 mg IM Q4H PRN PRN Reason: Agitation Stop: 08/29/18 21:13 Magnesium Hydroxide (Milk Of Magnesia) 30 ml PO Q12H PRN PRN Reason: Constipation Stop: 08/28/18 23:53 Multivitamins/Minerals (Multivitamin W/ Minerals Tab) 1 tab PO BIDM [facility] Stop: 08/29/18 07:59 Last Admin: 07/31/18 09:39 Dose: Not Given Documented by: Polyethylene Glycol (Miralax Powder Packet) 17 gm PO DAILY PRN PRN Reason: Constipation Stop: 08/28/18 23:53 Risperidone (Risperdal) 0.25 mg PO HS [facility] Stop: 08/28/18 23:53 Last Admin: 07/30/18 20:43 Dose: Not Given Documented by: (1) Acute on chronic renal failure Acute renal failure type: unspecified Chronic kidney disease stage: unspecified stage Qualified Code(s): N17.9 - Acute kidney failure, unspecified; N18.9 - Chronic kidney disease, unspecified (2) Dementia Dementia behavioral disturbance: with behavioral disturbance Dementia type: Alzheimer's disease (3) Hyperlipidemia Hyperlipidemia type: unspecified Qualified Code(s): E78.5 - Hyperlipidemia, unspecified
--- NOTE | 2018-07-31 13:01 | Palliative Care Progress Note ---
Date of Service July 31, 2018 Assessment & Plan (1) Goals of care, counseling/discussion: -No family at bedside during my visit. -Dr. Rivas spoke with patient's son, Gary, who is on board with comfort measures and hospice care. -Other POA, daughter Ann Marie, has stated multiple times that she is on board with comfort/hospice care. -IVF have been discontinued. -FAST score 6d-6e. -PPS 40% at best, although I'm not sure she could get out of bed at this point. -Came from [facility], who will need to determine if they can take patient back on hospice. Case management following. (2) Dementia: (3) Acute on chronic renal failure: (4) Hypomagnesemia: (5) Hypokalemia: Subjective Patient tearful as per usual this morning. She is paranoid and scared. NO family at bedside. Review of Systems Review of Systems: Unobtainable due to cognitive status Physical Exam Physical Exam: Constitutional + thin and + frail appearing Eyes PERRL, conjunctivae normal, anicteric sclerae ENMT external ear and nose normal, oropharynx normal Neck normal visual inspection Respiratory normal respiratory effort, lungs clear to auscultation Auscultation: + diminished lung sounds Cardiovascular RRR, no murmur, no edema Gastrointestinal (Abdomen) normal bowel sounds, soft, nontender, no hepatosplenomegaly Skin fragile, but intact Neurologic moves all extremities, awake and + confused Psychiatric Orientation: alert and oriented to person; + not oriented to place and + not oriented to time Affect: + tearful affect Results & Data Vital Signs (Past 12 Hours) Vital Signs Temp Pulse Resp BP Pulse Ox 07/31/18 07:21 36.4 C L 91 H 18 121/82 100 Time Spent Midlevel 35 minutes with >50% of time spent at bedside with patient and IDT discussing case and coordinating care. (1) Dementia Dementia behavioral disturbance: with behavioral disturbance Dementia type: Alzheimer's disease (2) Acute on chronic renal failure Acute renal failure type: unspecified Chronic kidney disease stage: unspecified stage Qualified Code(s): N17.9 - Acute kidney failure, unspecified; N18.9 - Chronic kidney disease, unspecified
[2018-07-31] MEDS: risperiDONE 0.5 MG TABLET PO SCH (20:06)
[2018-07-31] MEDS: AMIODARONE 200 MG TAB PO SCH (20:11)
[2018-08-01] MEDS: ACETAMINOPHEN 325 MG TAB PO PRN ×2 (05:11→07:47)
[2018-08-01 05:49] LABS: Basophils # (auto) 0.01 K/uL (0-0.2); Basophils % (auto) 0.2 %; Eosinophils % (auto) 1.5 %; Hematocrit (blood only) 30.7 % (37-47); Hemoglobin 10.4 g/dL (12.0-16.0); Immature Granulocytes # (auto) 0.03 K/uL (0.00-0.02); Immature Granulocytes % (auto) 0.5 %; Lymphocytes # (auto) 0.98 K/uL (1.2-3.4); Mean Corpuscular Hgb Conc 33.9 g/dL (32-36); Mean Corpuscular Volume 89.2 fL (80-100); Mean Platelet Volume 10.3 fL (7.4-10.4); Monocytes # (auto) 0.82 K/uL (0.11-0.59); Monocytes % (auto) 12.5 %; Neutrophils # (auto) 4.61 K/uL (1.4-6.5); Neutrophils % (auto) 70.3 %; Platelet Count 179 K/uL (130-400); RDW Coefficient of Variation 16.6 % (11.5-14.5); RDW Standard Deviation 53.2 fL (36.4-46.3); Red Blood Count 3.44 M/uL (4.2-5.4); White Blood Count 6.55 K/uL (4.8-10.8)
[2018-08-01 06:21] LABS: Albumin Level 2.4 gm/dl (3.4-5.0); BUN Creatinine Ratio 18.7 (10-20); Calcium 7.5 mg/dl (8.5-10.1); Creatinine Clr Calc Pharmacy 25.1 ml/min; Est GFR (African American) 41.6; Est GFR (Non-African American) 35.9; Potassium 3.4 mmol/L (3.5-5.1)
[2018-08-01 06:24] LABS: Albumin Globulin Ratio 0.8 (0.9-2); Bilirubin,Total 0.8 mg/dl (0.2-1); Globulin 2.9 gm/dl (2.5-4.0); Total Protein 5.3 gm/dl (6.4-8.2)
[2018-08-01] MEDS: DABIGATRAN ETEXILATE 75 MG CAP PO SCH (07:54)
[2018-08-01] MEDS: FERROUS SULFATE 325 MG TAB PO SCH (07:54)
[2018-08-01] MEDS: CEROVITE ADV FORMULA TAB PO SCH (07:54)
[2018-08-01] MEDS: CALCIUM CARBONATE 500 MG CHEWABLE TAB PO SCH (07:54)
[2018-08-01] MEDS: CIPROFLOXACIN HCL 0.3% OP SOLN 2.5 ML BTL OP SCH ×2 (07:54→12:56)
--- NOTE | 2018-08-01 14:33 | Discharge Summary ---
Date of Service August 01, 2018 Admission HPI Per Admitting Provider The patient is an 82-year-old female with a past medical history including advanced dementia, hypertension, atrial fibrillation and recent hospitalization from 07/18-07/22 with very similar presentation of unexplained decreased oral intake, leading to acute kidney injury, with creatinine upon entry 2.51, and upon discharge was 1.14. The patient herself is confused and disoriented, and is unable to contribute to her HPI or review of systems. Principal Diagnosis Acute kidney injury Discharge Exam Constitutional WD/WN, vitals as above + thin Eyes PERRL, conjunctivae normal, anicteric sclerae ENMT external ear and nose normal, oropharynx normal Neck trachea midline, no thyromegaly Respiratory normal respiratory effort, lungs clear to auscultation Cardiovascular RRR, no murmur, no edema Gastrointestinal (Abdomen) normal bowel sounds, soft, nontender, no hepatosplenomegaly Musculoskeletal no cyanosis or clubbing, extremities motor strength 5/5 Skin no rashes, warm and dry Neurologic patellar DTR's 2+ bilat, sensation intact and PERRL, EOMI, accommodation nl, no face palsy, no dysarthria Psychiatric Orientation: alert, oriented to person and + guarded; + not oriented to place and + not oriented to time Eye Contact: + fair eye contact Affect: + anxious affect and + tearful affect Mood: + anxious mood Lymphatic no cervical or axillary lymphadenopathy Discharge Data Allergies Allergy/AdvReac Type Severity Reaction Status Date / Time Penicillins Allergy Mild Rash Verified 07/29/18 17:47 risedronate sodium AdvReac Mild Nausea Verified 07/29/18 17:47 Consultations 07/29/18 20:09 ED Decision to Admit Stat 07/29/18 23:54 Consult Case Management - Discharge Planning Routine 07/30/18 06:10 Consult Palliative Care Routine Ordered Studies 07/29/18 17:33 CT head/brain wo con Stat US venous doppler LE BI Urgent Hospital Course (1) NEHA (acute kidney injury): treated with IV fluids resolved, Cr back to baseline due to dehydration which has been recurring because she does not eat or drink at SNF (2) Acute on chronic renal failure: Patient with same presentation as at previous admission from 07/18- 07/22. Creatinine upon admission on 07/18 was 2.51, and upon discharge to [facility] on 07/22 was 1.14. Creatinine upon admission was 2.66. this is prerenal, patient is clinically dry on exam will give NSS + K at 100cc/hr and follow labs, follow UO (3) Dementia: Dementia has been progressive over the past months. patient cannot maintain hydration and nutrition cannot care for her ADLs she is elopement and fall risk, danger to herself and her health long discussion with patient's son Gary on 07/31 spent 15 minutes with him on the phone and 10 minutes on the phone with patient's daughter Ann Marie also met with patient's son Stewart and daughter Lakisha on 08/01, they are both on board with plan for hospice completed POLST with Gary on 08/01 DNR, comfort only, only use antibiotics with comfort as goal, no artificial hydration either by IV or feeding tubes only would return to hospital if she cannot be comfortable at [facility] hospice selected by family, will provide support after discharge Morphine 20mg/1mL prescribed, use 0.25mL every 6 hours as needed for pain Ativan 0.5mg PO every 8 hours as needed for anxiety will plan to transition to hospice care once back at [facility] Case management to reach out to daughter to [facility] hospice agency (4) Atrial fibrillation: Continuing on amiodarone STOP the Pradax for two reasons: she is a fall risk and she is not taking it consistently for it to even work (5) Hyperlipidemia: No longer on medications. (6) Hypokalemia: low at 3.1 on admission improved to 3.9 with K in fluids Total Time Total Time Spent Total Time Spent (In Minutes): 45 minutes Total Time Includes: Examination of the Patient, Discharge Planning, Medication Reconciliation and Other (discussions with multiple children, filling out POLST) Discharge Plan Discharge Items Patient Disposition: Hospice - Medical Facility Reason For Visit: FALL, LUMP ON HEAD Discharge Diagnosis: Acute kidney injury Advanced dementia Dehydration Condition: Fair Discharge Goals: Decrease discomfort and Specific goals Specific Goals: hospice care Activity: Per 'Additional Instructions' section Bathing: No limitations Non-emergency contact: Primary Care Provider Call non-emergency contact if: you have any medication questions, your symptoms worsen and you have a fever [facility] - Diet: Regular Addtl Provider Instructions: Medications: reduced medication list since we are changing to hospice, also, patient not really compliant with medications - CIPRO: apply to affected eye QID, 10 more days - PRADAXA: stopped this medication as the patient is a very high risk for falls, she does not take it consistently enough to actually work for anticoagulation purposes - FERROUS SULFATE: stopped - CALCIUM: stopped Admitted for acute kidney injury and dehydration treated with IV fluids, responded quickly, Cr back to normal discussed goals of care with children Ann Marie, Gary, Stewart and Lakisha all are in agreement with hospice care they know that the patient has advanced dementia which we cannot fix, she will get dehydrated again POLST completed: the only reason she would come back to the hospital is if she cannot be comfortable at [facility] hospice will visit with patient after discharge use Morphine and Ativan as needed for any discomfort or distress in the near future Prescriptions: New ciprofloxacin HCl 0.3 % Drops 1 drp ophthalmic (eye) QID 10 Days Qty: 10 RF: 0 morphine concentrate 100 mg/5 mL (20 mg/mL) solution 5 mg PO Q6H PRN (Reason: pain) Qty: 30 RF: 0 lorazepam 0.5 mg tablet 0.5 mg PO Q8H PRN (Reason: anxiety) Qty: 30 RF: 0 Continued risperidone [Risperdal] 0.25 mg tablet 0.25 mg PO HS Qty: 30 RF: 0 amiodarone 200 mg tablet 200 mg PO PM RF: 0 acetaminophen [Acetaminophen Extra Strength] 500 mg Tablet 1,000 mg PO Q8H PRN (Reason: Pain) RF: 0 Discontinued Pradaxa 75 mg Capsule 75 mg PO BID 30 Days Qty: 60 RF: 3 PreserVision AREDS-2 [id number] Capsule 1 tab PO BIDM RF: 0 ferrous sulfate [iron] 325 mg (65 mg iron) Tablet 325 mg PO QAM RF: 0 calcium carbonate [Calci-Chew] 500 mg calcium (1,250 mg) Tablet,Chewable 1,000 mg PO QAM RF: 0 Stand-Alone Forms: [facility] Discharge Orders: Discharge Order (Routine); Ordered 08/01/18 Ordered By: Marvin Rivas Admission Data Admit Date/Time: 07/29/18 22:44 Attending Provider: Marvin Rivas Admit Provider: Adonis Perdue Primary Care Provider: Hemalannalisa, Other Providers: Adonis Perdue ; Katerina Grullon Service: Medical
== END 2018-08-01 16:46 | disposition hospice, inpatient (51) | DRG 641 ==
LOC: ED 17:09 → SUATTDRO 22:44 → 2E 22:44 → 4W 07-30 13:38